=== PATIENT | female | born 1960 | race Caucasian/White ===

== ENCOUNTER 2017-04-29 18:01 | Emergency (ER) | payer OTHER ==
[2017-04-29] MEDS ORDERED: ONDANSETRON 4 MG TAB.RAPDIS PO ONE (18:43)
--- NOTE | 2017-04-29 18:50 | ER Document Report ---
ED Medical Screen (RME) - General Chief Complaint: Headache Stated Complaint: HEADACHE Time Seen by Provider: 04/29/17 18:39 Mode of Arrival: Ambulatory Information source: Patient TRAVEL OUTSIDE OF THE [place] IN LAST 30 DAYS: No - HPI Onset: Yesterday - APPROX. 2330 HRS. Quality of pain: Achy, Dull Associated Symptoms: Nausea, Vomiting - ONCE Exacerbated by: Denies Relieved by: Denies Similar symptoms previously: Yes Recently seen / treated by doctor: No Notes: 04/29/17 18:47 SAYS SHE USUALLY RESPONDS WELL TO HYDROMORPHONE AND PROMETHAZINE, NO PROBLEMS W / THESE MEDS. - Related Data Smoking: Non-smoker Frequency of alcohol use: None Drug Abuse: None Allergies/Adverse Reactions: buprenorphine [From Butrans] Allergy (Verified 04/29/17 18:06) Dyspnea butorphanol tartrate [From Stadol] Allergy (Verified 04/29/17 18:06) Seizures ketorolac tromethamine [From Toradol] Allergy (Verified 04/29/17 18:06) Seizures morphine [Morphine] Allergy (Verified 04/29/17 18:06) Swelling of Throat Penicillins Allergy (Verified 04/29/17 18:06) Generalized rash prochlorperazine edisylate [From Compazine] Allergy (Verified 04/29/17 18:06) prochlorperazine maleate [From Compazine] Allergy (Verified 04/29/17 18:06) aspirin [From Fiorinal-Codeine #3] Adverse Reaction (Verified 04/29/17 18:06) Delirium baclofen [Baclofen] Adverse Reaction (Verified 04/29/17 18:06) Hallucinations butalbital [From Fiorinal-Codeine #3] Adverse Reaction (Verified 04/29/17 18:06) Delirium caffeine [From Fiorinal-Codeine #3] Adverse Reaction (Verified 04/29/17 18:06) Delirium codeine phosphate [From Fiorinal-Codeine #3] Adverse Reaction (Verified 18:06) Delirium diphenhydramine HCl [From Benadryl] Adverse Reaction (Verified 04/29/17 18:06) metoclopramide HCl [From Reglan] Adverse Reaction (Verified 04/29/17 18:06) tramadol [Tramadol] Adverse Reaction (Verified 04/29/17 18:06) Hallucinations Past Medical History - General Information source: Patient - Social History Cigarette use (# per day): No Chew tobacco use (# tins/day): No Frequency of alcohol use: None Drug Abuse: None Lives with: Alone Family history: Reviewed & Not Pertinent - Past Medical History Cardiac Medical History: Reports: None Denies: Hx Heart Attack, Hx Hypertension Pulmonary Medical History: Reports: None Denies: Hx Asthma Neurological Medical History: Reports: Hx Migraine, Hx Seizures - DEVELOPED AFTER CRANI LAST ABT A YEAR AGO. Denies: Hx Cerebrovascular Accident Endocrine Medical History: Reports: None Renal/ Medical History: Reports: None. Denies: Hx Peritoneal Dialysis Malignancy Medical History: Reports: None GI Medical History: Reports: Hx Gastroesophageal Reflux Disease. Denies: Hx Hepatitis, Hx Hiatal Hernia, Hx Ulcer Psychiatric Medical History: Reports: None Infectious Medical History: Denies: Hx Hepatitis Past Surgical History: Reports: Hx Hysterectomy. Denies: Hx Mastectomy, Hx Open Heart Surgery, Hx Pacemaker - Immunizations Hx Diphtheria, Pertussis, Tetanus Vaccination: Yes Review of Systems - Review of Systems Constitutional: Weakness. denies: Chills, Fever EENT: No symptoms reported Cardiovascular: No symptoms reported Respiratory: No symptoms reported Gastrointestinal: See HPI Genitourinary: No symptoms reported Female Genitourinary: Post menopausal Musculoskeletal: No symptoms reported Skin: No symptoms reported Neurological/Psychological: See HPI Physical Exam - Vital signs Vitals: Temp Pulse Resp BP Pulse Ox 98.1 F 87 18 127/77 H 100 04/29/17 18:06 04/29/17 18:06 04/29/17 18:06 04/29/17 18:06 04/29/17 18:06 Interpretation: Normal. No: Tachycardic, Tachypneic, Febrile - General General appearance: Appears well, Alert In distress: None - HEENT Head: Normocephalic Eyes: Normal Conjunctiva: Normal Nasal: Normal Mouth/Lips: Normal Mucous membranes: Normal - Respiratory Respiratory status: No respiratory distress - Cardiovascular Rhythm: Regular - Extremities General upper extremity: Normal inspection General lower extremity: Normal inspection - Neurological Neuro grossly intact: Yes Cognition: Normal Orientation: AAOx4 - Psychological Associated symptoms: Normal affect, Normal mood - Skin Skin Temperature: Warm Skin Moisture: Dry Skin Color: Normal Skin Turgor: Elastic Course - Vital Signs Vital signs: Temp Pulse Resp BP Pulse Ox 98.1 F 87 18 127/77 H 100 04/29/17 18:06 04/29/17 18:06 04/29/17 18:06 04/29/17 18:06 04/29/17 18:06
[2017-04-29] MEDS ORDERED: PROMETHAZINE HCL 25 MG TABLET PO SCH (19:15)
[2017-04-29] MEDS ORDERED: HYDROMORPHONE HCL INJ/PF 2 MG/ML AMPULE IM SCH (19:45)
[2017-04-29 20:46] VITALS: BP 122/74
== END 2017-04-29 20:40 | disposition home or self-care (01) ==
LOC: ER 18:01
DX: G43.909 Migraine, unspecified, not intractable, without status migrainosus (principal); R11.2 Nausea with vomiting, unspecified
CPT/HCPCS: 99283; S0119

== ENCOUNTER 2017-04-30 16:37 | Emergency (ER) | payer OTHER ==
[2017-04-30] MEDS ORDERED: HYDROMORPHONE HCL INJ/PF 2 MG/ML AMPULE IM ONE ×2 (18:37→19:12)
[2017-04-30] MEDS ORDERED: ONDANSETRON 4 MG TAB.RAPDIS PO ONE (18:37)
[2017-04-30] MEDS ORDERED: PROMETHAZINE HCL 25 MG TABLET PO ONE (18:37)
[2017-04-30] MEDS ORDERED: METHYLPREDNISOLONE INJ 125 MG/2 ML SDV IM ONE (18:38)
--- NOTE | 2017-04-30 18:42 | ER Document Report ---
ED General Pain - General Chief Complaint: Pain All Over Stated Complaint: HEADACHE/ NECK,BACK PAIN Time Seen by Provider: 04/30/17 18:02 Notes: Patient is a 57-year-old female who returns emergency department today complaining of all over body aches that started about 2 days ago. Patient states that she was evaluated here yesterday treated for her migraine and then she requested to go home. Patient states that she woke up this morning with return of her migraine as well as her body aches. Patient states that the last time she had symptoms like this that she was diagnosed with a developing lesion of her multiple sclerosis. Patient states that she really has scheduled appointment with her neurologist and her primary care physician this week. Otherwise she admits to intermittent nausea which she states is a 30 cc with her migraine. Patient states that she took her daily medications but denies taking the Percocet prior to arrival in the emergency department. Otherwise she denies any vision changes, any localized weakness, difficulty walking. Patient states that she is able to walk with minor aches and pains. Otherwise she denies any urinary sexual incontinence, saddle anesthesia. TRAVEL OUTSIDE OF THE [place] IN LAST 30 DAYS: No - Related Data Allergies/Adverse Reactions: buprenorphine [From Butrans] Allergy (Verified 04/30/17 16:56) Dyspnea butorphanol tartrate [From Stadol] Allergy (Verified 04/30/17 16:56) Seizures ketorolac tromethamine [From Toradol] Allergy (Verified 04/30/17 16:56) Seizures morphine [Morphine] Allergy (Verified 04/30/17 16:56) Swelling of Throat Penicillins Allergy (Verified 04/30/17 16:56) Generalized rash prochlorperazine edisylate [From Compazine] Allergy (Verified 04/30/17 16:56) prochlorperazine maleate [From Compazine] Allergy (Verified 04/30/17 16:56) aspirin [From Fiorinal-Codeine #3] Adverse Reaction (Verified 04/30/17 16:56) Delirium baclofen [Baclofen] Adverse Reaction (Verified 04/30/17 16:56) Hallucinations butalbital [From Fiorinal-Codeine #3] Adverse Reaction (Verified 04/30/17 16:56) Delirium caffeine [From Fiorinal-Codeine #3] Adverse Reaction (Verified 04/30/17 16:56) Delirium codeine phosphate [From Fiorinal-Codeine #3] Adverse Reaction (Verified 16:56) Delirium diphenhydramine HCl [From Benadryl] Adverse Reaction (Verified 04/30/17 16:56) metoclopramide HCl [From Reglan] Adverse Reaction (Verified 04/30/17 16:56) tramadol [Tramadol] Adverse Reaction (Verified 04/30/17 16:56) Hallucinations Past Medical History - Social History Smoking Status: Never Smoker Chew tobacco use (# tins/day): No Frequency of alcohol use: None Drug Abuse: None Family History: Reviewed & Not Pertinent Patient has suicidal ideation: No Patient has homicidal ideation: No - Past Medical History Cardiac Medical History: Denies: Hx Heart Attack, Hx Hypertension Pulmonary Medical History: Denies: Hx Asthma Neurological Medical History: Reports: Hx Migraine, Hx Seizures - DEVELOPED AFTER CRANI LAST ABT A YEAR AGO. Denies: Hx Cerebrovascular Accident Renal/ Medical History: Denies: Hx Peritoneal Dialysis GI Medical History: Reports: Hx Gastroesophageal Reflux Disease. Denies: Hx Hepatitis, Hx Hiatal Hernia, Hx Ulcer Infectious Medical History: Denies: Hx Hepatitis Surgical Hx: Negative Past Surgical History: Reports: Hx Hysterectomy. Denies: Hx Mastectomy, Hx Open Heart Surgery, Hx Pacemaker - Immunizations Hx Diphtheria, Pertussis, Tetanus Vaccination: Yes Review of Systems - Review of Systems Constitutional: No symptoms reported Musculoskeletal: See HPI Neurological/Psychological: See HPI -: Yes All other systems reviewed and negative Physical Exam - Vital signs Vitals: Temp Pulse Resp BP Pulse Ox 98.3 F 79 24 H 125/72 97 04/30/17 16:56 04/30/17 16:56 04/30/17 16:56 04/30/17 16:56 04/30/17 16:56 - Notes Notes: PHYSICAL EXAM GENERAL: Alert, interacts well. HEAD: Normocephalic, atraumatic. EYES: Pupils equal, round, and reactive to light. Extraocular movements intact. ENT: Oral mucosa moist, tongue midline. NECK: Full range of motion. Supple. Trachea midline. LUNGS: Clear to auscultation bilaterally, no wheezes, rales, or rhonchi. No respiratory distress. HEART: Regular rate and rhythm. No murmurs, gallops, or rubs. ABDOMEN: Soft, nondistended, nontender. No guarding, rebound, or rigidity.. Bowel sounds present in all 4 quadrants. EXTREMITIES: Moves all 4 extremities spontaneously. No edema, radial and dorsalis pedis pulses 2/4 bilaterally. No cyanosis. NEUROLOGICAL: Alert and oriented x4. Normal speech. PSYCH: Normal affect, normal mood. SKIN: Warm, dry, normal turgor. No rashes or lesions noted. Course - Re-evaluation Re-evalutation: 04/30/17 21:35 Patient is a 57-year-old female who returns emergency department with likely symptoms related to MS. Patient clinically looks well and does not show symptoms of an acute MS flare. Discussion with Dr. Weston, he states that she can be initiated on outpatient steroid therapy and follow-up with her primary care on Sunday and if she is not improved they can admit her for inpatient steroid therapy. Patient is agreeable with plan. Patient stable for discharge home with strict return precautions. - Vital Signs Vital signs: Temp Pulse Resp BP Pulse Ox 97.5 F 67 20 115/75 98 04/30/17 19:08 04/30/17 19:08 04/30/17 19:08 04/30/17 19:08 04/30/17 19:08 Discharge - Discharge Clinical Impression: Multiple sclerosis Migraine headache Qualifiers: Migraine type: unspecified Status migrainosus presence: without status migrainosus Intractability: not intractable Qualified Code(s): G43.909 - Migraine, unspecified, not intractable, without status migrainosus Condition: Good Disposition: HOME, SELF-CARE Additional Instructions: Your symptoms today likely related to your MS. There is no need to admit you to the hospital at this time. Please follow-up with your primary care provider on Sunday. Please take your steroids as prescribed. Prescriptions: Prednisone 20 mg PO BID 5 Days Referrals: MARITZA KEARNS III, MD [Primary Care Provider] - 05/02/17
[2017-04-30 19:10] VITALS: BP 115/75
== END 2017-04-30 19:26 | disposition home or self-care (01) ==
LOC: ER 16:37
DX: G35 Multiple sclerosis (principal); G43.909 Migraine, unspecified, not intractable, without status migrainosus; M79.1 Myalgia; Z88.0 Allergy status to penicillin; Z88.6 Allergy status to analgesic agent; Z90.710 Acquired absence of both cervix and uterus
CPT/HCPCS: 99283; 96372; S0119; J2930; J1170

== ENCOUNTER 2017-05-29 21:19 | Emergency (ER) | payer OTHER ==
[2017-05-29 22:26] LABS: ABSOLUTE EOSINOPHILS # (AUTO) 0.3 10^3/uL (0.0-0.6); ABSOLUTE LYMPHOCYTES (AUTO) 1.7 10^3/uL (0.5-4.7); ABSOLUTE MONOCYTES (AUTO) 0.5 10^3/uL (0.1-1.4); ABSOLUTE NEUT (AUTO) 5.6 10^3/uL (1.7-8.2); BASOPHILS % (AUTO) 0.3 % (0-2); EOSINOPHILS % (AUTO) 3.9 % (0-6); HEMATOCRIT 34.8 % (36.0-47.0); HEMOGLOBIN 10.9 g/dL (12.0-15.5); HGB HCT DIFFERENCE -2.1; MEAN CORPUSCULAR HGB CONC 31.4 g/dL (32.0-36.0); MEAN CORPUSCULAR VOLUME 86 fl (80-97); MONOCYTES % (AUTO) 5.9 % (3-13); RED BLOOD COUNT 4.04 10^6/uL (3.72-5.28); RED CELL DISTRIBUTION WIDTH 17.9 % (11.5-14.0); SEGMENTED NEUTROPHILS % (AUTO) 68.9 % (42-78); WHITE BLOOD COUNT 8.2 10^3/uL (4.0-10.5)
--- NOTE | 2017-05-29 22:31 | RADIOLOGY REPORT (SQ) ---
EXAM DESCRIPTION: ACUTE ABDOMEN SERIES COMPLETED DATE/TIME: 05/29/2017 10:22 pm REASON FOR STUDY: abdominal pain COMPARISON: None. NUMBER OF VIEWS: Three views. TECHNIQUE: Frontal chest, supine abdomen and upright/decubitus abdomen radiographic images acquired. LIMITATIONS: None. FINDINGS: CHEST: Lungs clear of infiltrates. Chronic appearing changes are identified. I cannot ex clude a component of obstructive lung disease. FREE AIR: None. No abnormal gas collections. BOWEL GAS PATTERN: Nonobstructive pattern. No dilated loops or air fluid levels. CALCIFICATIONS: No suspicious calcifications. HARDWARE: None in the abdomen. SOFT TISSUES: No gross mass or suggestion of organomegaly. BONES: No acute fracture. No worrisome bone lesions. OTHER: No other significant finding. IMPRESSION: NO RADIOGRAPHIC EVIDENCE FOR ACUTE ABDOMINAL DISEASE. TECHNICAL DOCUMENTATION: JOB ID: [id number] [employer]- All Rights Reserved
[2017-05-29 22:44] LABS: ALANINE AMINOTRANSFERASE 26 U/L (9-52); ALBUMIN 3.6 g/dL (3.5-5.0); ALKALINE PHOSPHATASE 91 U/L (38-126); ANION GAP 11 (5-19); ASPARTATE AMINO TRANSFERASE 20 U/L (14-36); BILIRUBIN,DIRECT 0.4 mg/dL (0.0-0.4); BILIRUBIN,TOTAL 0.4 mg/dL (0.2-1.3); BLOOD UREA NITROGEN 22 mg/dL (7-20); CALCIUM 9.5 mg/dL (8.4-10.2); CARBON DIOXIDE 18 mmol/L (22-30); CHLORIDE 114 mmol/L (98-107); CREATININE RESULT 1.05 mg/dL (0.52-1.25); GLUCOSE 80 mg/dL (75-110); LIPASE 46.3 U/L (23-300); POTASSIUM 3.7 mmol/L (3.6-5.0); SODIUM 142.7 mmol/L (137-145); TOTAL PROTEIN 6.7 g/dL (6.3-8.2)
[2017-05-29] MEDS ORDERED: PROMETHAZINE HCL 25 MG TABLET PO ONE (22:58)
[2017-05-29] MEDS ORDERED: HYDROMORPHONE HCL INJ/PF 2 MG/ML AMPULE IM ONE (22:58)
[2017-05-29 23:04] LABS: APPEARANCE,URINE CLEAR; BILIRUBIN,URINE NEGATIVE (NEGATIVE); GLUCOSE, URINE NEGATIVE (NEGATIVE); KETONES,URINE NEGATIVE (NEGATIVE); LEUKOCYTE ESTERASE,URINE NEGATIVE (NEGATIVE); NITRITE,URINE NEGATIVE (NEGATIVE); PROTEIN,URINE NEGATIVE (NEGATIVE); URINE SPECIFIC GRAVITY 1.009; UROBILINOGEN,URINE NEGATIVE mg/dL (<2.0)
--- NOTE | 2017-05-29 23:18 | ER Document Report ---
ED GI/ - General Chief Complaint: Abdominal Pain Stated Complaint: MIGRAINE/NAUSEA Time Seen by Provider: 05/29/17 21:35 TRAVEL OUTSIDE OF THE [place] IN LAST 30 DAYS: No - HPI Patient complains to provider of: Abdominal pain - LLQ for 2-3 days with assocaited constipation Timing/Duration: Gradual Quality of pain: Achy, Sharp Severity at maximum: Moderate Pain Level: 4 Location: LLQ Vaginal bleeding (Compared to normal period): None Associated symptoms: Constipation - admits to need to go but with small firm stools, associated bloating, Hard stool. denies: Blood in stool, Nausea Exacerbated by: Denies Relieved by: Denies Similar symptoms previously: No Recently seen / treated by doctor: No - Related Data Allergies/Adverse Reactions: buprenorphine [From Butrans] Allergy (Verified 04/30/17 16:56) Dyspnea butorphanol tartrate [From Stadol] Allergy (Verified 04/30/17 16:56) Seizures ketorolac tromethamine [From Toradol] Allergy (Verified 04/30/17 16:56) Seizures morphine [Morphine] Allergy (Verified 04/30/17 16:56) Swelling of Throat Penicillins Allergy (Verified 04/30/17 16:56) Generalized rash prochlorperazine edisylate [From Compazine] Allergy (Verified 04/30/17 16:56) prochlorperazine maleate [From Compazine] Allergy (Verified 04/30/17 16:56) aspirin [From Fiorinal-Codeine #3] Adverse Reaction (Verified 04/30/17 16:56) Delirium baclofen [Baclofen] Adverse Reaction (Verified 04/30/17 16:56) Hallucinations butalbital [From Fiorinal-Codeine #3] Adverse Reaction (Verified 04/30/17 16:56) Delirium caffeine [From Fiorinal-Codeine #3] Adverse Reaction (Verified 04/30/17 16:56) Delirium codeine phosphate [From Fiorinal-Codeine #3] Adverse Reaction (Verified 16:56) Delirium diphenhydramine HCl [From Benadryl] Adverse Reaction (Verified 04/30/17 16:56) metoclopramide HCl [From Reglan] Adverse Reaction (Verified 04/30/17 16:56) tramadol [Tramadol] Adverse Reaction (Verified 04/30/17 16:56) Hallucinations Past Medical History - Social History Smoking Status: Unknown if Ever Smoked Family History: Reviewed & Not Pertinent Patient has suicidal ideation: No Patient has homicidal ideation: No - Past Medical History Cardiac Medical History: Denies: Hx Heart Attack, Hx Hypertension Pulmonary Medical History: Denies: Hx Asthma Neurological Medical History: Reports: Hx Migraine, Hx Seizures - DEVELOPED AFTER CRANI LAST ABT A YEAR AGO. Denies: Hx Cerebrovascular Accident Renal/ Medical History: Denies: Hx Peritoneal Dialysis GI Medical History: Reports: Hx Gastroesophageal Reflux Disease. Denies: Hx Hepatitis, Hx Hiatal Hernia, Hx Ulcer Infectious Medical History: Denies: Hx Hepatitis Past Surgical History: Reports: Hx Hysterectomy. Denies: Hx Mastectomy, Hx Open Heart Surgery, Hx Pacemaker - Immunizations Hx Diphtheria, Pertussis, Tetanus Vaccination: Yes Review of Systems - Review of Systems Constitutional: No symptoms reported Gastrointestinal: See HPI Neurological/Psychological: Other - admits to assocaited migraine c/w PMH Physical Exam - Vital signs Vitals: Temp Pulse Resp BP Pulse Ox 98.4 F 104 H 15 117/78 99 05/29/17 21:23 05/29/17 21:23 05/29/17 21:23 05/29/17 21:23 05/29/17 21:23 - Notes Notes: PHYSICAL EXAM GENERAL: Alert, interacts well. HEAD: Normocephalic, atraumatic. EYES: Pupils equal, round, and reactive to light. Extraocular movements intact. ENT: Oral mucosa moist, tongue midline. NECK: Full range of motion. Supple. Trachea midline. LUNGS: Clear to auscultation bilaterally, no wheezes, rales, or rhonchi. No respiratory distress. HEART: Regular rate and rhythm. No murmurs, gallops, or rubs. ABDOMEN: Soft, minimally distended, nontender. No guarding, rebound, or rigidity.. Bowel sounds present in all 4 quadrants. EXTREMITIES: Moves all 4 extremities spontaneously. No edema, radial and dorsalis pedis pulses 2/4 bilaterally. No cyanosis. NEUROLOGICAL: Alert and oriented x4. Normal speech. PSYCH: Normal affect, normal mood. SKIN: Warm, dry, normal turgor. No rashes or lesions noted. Course - Re-evaluation Re-evalutation: 05/30/17 01:12 Patient is a 57-year-old female hemodynamic stable, no distress and afebrile. No evidence of acute abdomen. No evidence of bowel obstruction. Patient tolerating p.o. without any difficulty. Migraine resolved after medication. After performing a Medical Screening Examination, I estimate there is LOW risk for ACUTE APPENDICITIS, BOWEL OBSTRUCTION, ACUTE CHOLECYSTITIS, PERFORATED DIVERTICULITIS, INCARCERATED HERNIA, PANCREATITIS, PELVIC INFLAMMATORY DISEASE, PERFORATED ULCER, ECTOPIC , or TUBO-OVARIAN ABSCESS, thus I consider the discharge disposition reasonable. Also, there is no evidence or peritonitis , sepsis, or toxicity. I have reevaluated this patient multiple times and no significant life threatening changes are noted. The patient and I have discussed the diagnosis and risks, and we agree with discharging home with close follow-up with the understanding that symptoms and presentations can change. We also discussed returning to the Emergency Department immediately if new or worsening symptoms occur. We have discussed the symptoms which are most concerning (e.g., bloody stool, fever, changing or worsening pain, vomiting) that necessitate immediate return. - Vital Signs Vital signs: Temp Pulse Resp BP Pulse Ox 97.3 F 76 16 121/80 100 05/29/17 23:30 05/29/17 23:30 05/29/17 23:30 05/29/17 23:30 05/29/17 23:30 - Laboratory Result Diagrams: 05/29/17 22:09 05/29/17 22:09 Laboratory results interpreted by me: 05/29/17 05/29/17 05/29/17 22:09 22:09 22:36 Hgb 10.9 L Hct 34.8 L MCHC 31.4 L RDW 17.9 H Chloride 114 H Carbon Dioxide 18 L BUN 22 H Est GFR (Non-Af Amer) 54 L Urine Blood SMALL H Discharge - Discharge Clinical Impression: Constipation Qualifiers: Constipation type: unspecified constipation type Qualified Code(s): K59.00 - Constipation, unspecified Condition: Good Disposition: HOME, SELF-CARE Additional Instructions: ABDOMINAL PAIN: There are many causes of abdominal pain. Pain can mean a serious problem requiring surgery (such as appendicitis). It can also be an innocent problem that goes away on its own (such as a viral infection). Often, time must pass to determine the cause of pain. The physician does not feel that hospitalization is necessary, at present. Things may change within the next 24 hours. Call the doctor or come back for re- examination if any problems occur, such as: (1) Pain that becomes more severe, steady, or becomes concentrated in one specific area. Also, pain that is more severe with movement or coughing. (2) Vomiting that persists or becomes more frequent. (3) Blood in the vomitus, urine, or bowel movements. Blood in the stool may have a tarry or black appearance. (4) Shaking chills or fever greater than 100 degrees F. (5) The abdomen becomes more distended or swollen. (6) Bowel movements cease. (7) Failure to improve as expected. NORMAL EXAM AND WORKUP: At this time, your examination and workup show no significant abnormality. No significant abnormal physical findings are noted. All laboratory, EKG, and imaging (x-ray, CT scans, ultrasound) studies that were ordered show no significant abnormality. Although your examination and all studies that were ordered showed no significant abnormal finding, there are no examinations and no studies that are 100% accurate. There is always the possibility that some abnormality could exist and not be detected with physical examination or within the limits and capabilities of laboratory and other studies. You should return or follow up as you were instructed on your visit today for further evaluation if your symptoms do not resolve. CONSTIPATION: Constipation is a common problem. It is especially likely as you get older. Constipation is a common cause of abdominal pain, but sometimes causes no symptoms at all. Causes of constipation include certain medications, dehydration, diets, inactivity, and low-fiber intake. Rarely, it can be a symptom of underlying disease. The physician has evaluated you for this. Avoid constipation by eating a diet high in fiber, fruits, and vegetables. Drink plenty of liquids. Get regular exercise. If possible, avoid constipating medicines like narcotic pain medication. Some vitamin tablets can cause constipation. Stool softeners may be needed for difficult cases. An excellent stool softener is Konsyl which is available at [employer] [employer] drug store. Just add a teaspoon to a glass of pineapple or orange juice daily or twice a day if needed. Laxatives are useful for occasional constipation. You should use them only when necessary. Too-frequent use can make your bowels dependent on them. Some over the counter laxatives available without prescription are: Milk of Magnesia, 1-2 tablespoons twice a day Dulcolax, 5 mg pill or 10 mg suppository. Citrate of Magnesia, 4-5 ounces a day for a day or two For acute constipation, Fleet's Enemas and Dulcolax suppositories are helpful. Chronic, terminal operator use of laxatives or enemas is not a good idea. Your bowel may become dependant on them. You do not need to have a bowel movement every day. Many people do fine with a bowel movement every three or four days. You should call your doctor or return for re-evaluation if you pass blood in the stool, or if you develop fever or increasing abdominal pain. FOLLOW-UP CARE: If you have been referred to a physician for follow-up care, call the physician s office for an appointment as you were instructed or within the next two days. If you experience worsening or a significant change in your symptoms, notify the physician immediately or return to the Emergency Department at any time for re-evaluation.
[2017-05-29 23:32] VITALS: BP 121/80
== END 2017-05-29 23:41 | disposition home or self-care (01) ==
LOC: ER 21:19
DX: K59.00 Constipation, unspecified (principal); R10.32 Left lower quadrant pain; K21.9 Gastro-esophageal reflux disease without esophagitis; Z88.6 Allergy status to analgesic agent; Z88.0 Allergy status to penicillin; Z90.710 Acquired absence of both cervix and uterus
CPT/HCPCS: 99284; 96372; 36415; 83690; 85025; 80053; 81001; 74022; J1170

== ENCOUNTER 2017-06-02 19:27 | Emergency (ER) | payer OTHER ==
[2017-06-02] MEDS ORDERED: PROMETHAZINE HCL 25 MG TABLET PO ONE (21:00)
[2017-06-02] MEDS ORDERED: HYDROMORPHONE HCL INJ/PF 2 MG/ML AMPULE IM ONE (21:00)
--- NOTE | 2017-06-02 21:01 | ER Document Report ---
ED General - General Chief Complaint: Headache Stated Complaint: NAUSEA Time Seen by Provider: 06/02/17 20:54 Notes: Patient is a 57-year-old female with past medical history of multiple sclerosis and chronic migraine headaches who presents with 1 of her typical migraine headaches. States she took her home medications without relief of her headache which she does describes a bitemporal, dull, constant, aching pain. States this feels identical to her prior typical migraine headaches. States the headache was gradual in onset and did get progressively worse. She has not seen a primary care doctor regarding today's episode of pain. States she typically gets Dilaudid and Phenergan for her headaches and does have a note from her neurologist instructing this regimen for her headaches. TRAVEL OUTSIDE OF THE [place] IN LAST 30 DAYS: No - Related Data Allergies/Adverse Reactions: buprenorphine [From Butrans] Allergy (Verified 06/02/17 19:32) Dyspnea butorphanol tartrate [From Stadol] Allergy (Verified 06/02/17 19:32) Seizures ketorolac tromethamine [From Toradol] Allergy (Verified 06/02/17 19:32) Seizures morphine [Morphine] Allergy (Verified 06/02/17 19:32) Swelling of Throat Penicillins Allergy (Verified 06/02/17 19:32) Generalized rash prochlorperazine edisylate [From Compazine] Allergy (Verified 06/02/17 19:32) prochlorperazine maleate [From Compazine] Allergy (Verified 06/02/17 19:32) aspirin [From Fiorinal-Codeine #3] Adverse Reaction (Verified 06/02/17 19:32) Delirium baclofen [Baclofen] Adverse Reaction (Verified 06/02/17 19:32) Hallucinations butalbital [From Fiorinal-Codeine #3] Adverse Reaction (Verified 06/02/17 19:32) Delirium caffeine [From Fiorinal-Codeine #3] Adverse Reaction (Verified 06/02/17 19:32) Delirium codeine phosphate [From Fiorinal-Codeine #3] Adverse Reaction (Verified 19:32) Delirium diphenhydramine HCl [From Benadryl] Adverse Reaction (Verified 06/02/17 19:32) metoclopramide HCl [From Reglan] Adverse Reaction (Verified 06/02/17 19:32) tramadol [Tramadol] Adverse Reaction (Verified 06/02/17 19:32) Hallucinations Past Medical History - General Information source: Patient - Social History Smoking Status: Never Smoker Frequency of alcohol use: None Drug Abuse: None Lives with: Alone Family History: Reviewed & Not Pertinent Patient has suicidal ideation: No Patient has homicidal ideation: No - Past Medical History Cardiac Medical History: Denies: Hx Heart Attack, Hx Hypertension Pulmonary Medical History: Denies: Hx Asthma Neurological Medical History: Reports: Hx Migraine, Hx Seizures - DEVELOPED AFTER CRANI LAST ABT A YEAR AGO. Denies: Hx Cerebrovascular Accident Renal/ Medical History: Denies: Hx Peritoneal Dialysis GI Medical History: Reports: Hx Gastroesophageal Reflux Disease. Denies: Hx Hepatitis, Hx Hiatal Hernia, Hx Ulcer Infectious Medical History: Denies: Hx Hepatitis Past Surgical History: Reports: Hx Hysterectomy. Denies: Hx Mastectomy, Hx Open Heart Surgery, Hx Pacemaker - Immunizations Hx Diphtheria, Pertussis, Tetanus Vaccination: Yes Review of Systems - Review of Systems Notes: Constitutional: Negative for fever. HENT: Negative for sore throat. Eyes: Negative for visual changes. Cardiovascular: Negative for chest pain. Respiratory: Negative for shortness of breath. Gastrointestinal: Negative for abdominal pain, vomiting or diarrhea. Genitourinary: Negative for dysuria. Musculoskeletal: Negative for back pain. Skin: Negative for rash. Neurological: Positive for headaches, negative for weakness or numbness. 10 point ROS negative except as marked above and in HPI. Physical Exam - Vital signs Vitals: Temp Pulse Resp BP Pulse Ox 98.4 F 84 18 120/77 100 06/02/17 19:32 06/02/17 19:32 06/02/17 19:32 06/02/17 19:32 06/02/17 19:32 Interpretation: Normal Notes: PHYSICAL EXAMINATION: GENERAL: Well-appearing, well-nourished and in no acute distress. HEAD: Atraumatic, normocephalic. EYES: Pupils equal round and reactive to light, extraocular movements intact, sclera anicteric, conjunctiva are normal. ENT: nares patent, oropharynx clear without exudates. Moist mucous membranes. NECK: Normal range of motion, supple without lymphadenopathy LUNGS: Breath sounds clear to auscultation bilaterally and equal. No wheezes rales or rhonchi. HEART: Regular rate and rhythm without murmurs ABDOMEN: Soft, nontender, normoactive bowel sounds. No guarding, no rebound. No masses appreciated. EXTREMITIES: Normal range of motion, no pitting or edema. No cyanosis. NEUROLOGICAL: Face symmetric. Tongue protrudes midline. Extraocular motions intact. Pupils are 2 mm and equally reactive. Normal speech, normal gait. 5 out of 5 strength in both the distal and proximal upper and lower extremities bilaterally. Sensation is grossly intact throughout. Finger to nose testing normal. Pronator drift normal. PSYCH: Normal mood, normal affect. SKIN: Warm, Dry, normal turgor, no rashes or lesions noted. Course - Re-evaluation Re-evalutation: 06/02/17 21:00 Presentation of a headache that appears to be most consistent with tension versus migrainous type headache. Headache was not maximal in onset, patient has no focal neurologic deficits, no nuchal rigidity, vital signs within normal limits, no papilledema, and patient is overall well in appearance. Based on clinical history and examination I do not suspect an acute subarachnoid hemorrhage, dural venous sinus thrombosis, acute meningitis, or intercranial mass. Given my low clinical suspicion for any acute life-threatening etiology, I do not feel advanced neuro imaging or laboratory testing is indicated at this time. Patient does come with a letter from her neurologist instructing that hydromorphone may be used for her migraine headaches. Patient has a very long list of allergies that include most medications that would be used for treatment of an acute migraine. Will treat and reassess. 06/02/17 22:19 Patient has had complete resolution of her headache and states she would like to go home. At this time will discharge with return precautions and follow-up recommendations. Verbal discharge instructions given a the bedside and opportunity for questions given. Medication warnings reviewed. Patient is in agreement with this plan and has verbalized understanding of return precautions and the need for primary care follow-up in the next 24-72 hours. - Vital Signs Vital signs: Temp Pulse Resp BP Pulse Ox 98.1 F 85 21 H 118/87 H 94 06/02/17 22:42 06/02/17 22:42 06/02/17 19:33 06/02/17 22:42 06/02/17 22:42 Discharge - Discharge Clinical Impression: Headache Qualifiers: Headache type: unspecified Headache chronicity pattern: acute headache Intractability: not intractable Qualified Code(s): R51 - Headache Condition: Good Disposition: HOME, SELF-CARE Additional Instructions: You have been seen in the Emergency Department (ED) for a headache. As we have discussed, please follow up with your primary care doctor as soon as possible regarding today's ED visit and your headache symptoms. Call your doctor or return to the ED if you have a worsening headache, sudden and severe headache, confusion, slurred speech, facial droop, weakness or numbness in any arm or leg, extreme fatigue, or other symptoms that concern you. Referrals: SABINE KEARNS MD [Primary Care Provider] - Follow up as needed
[2017-06-02 22:44] VITALS: BP 118/87
== END 2017-06-02 22:45 | disposition home or self-care (01) ==
LOC: ER 19:27
DX: R51 Headache (principal)
CPT/HCPCS: 99283; 96372; J1170

== ENCOUNTER 2018-02-06 02:00 | Emergency (ER) | payer OTHER ==
[2018-02-06] MEDS ORDERED: HYDROMORPHONE HCL INJ/PF 2 MG/ML AMPULE IV ONE (03:13)
--- NOTE | 2018-02-06 03:13 | ER Document Report ---
ED Dizziness/Weakness - General Chief Complaint: Headache, dizziness, vomited Stated Complaint: HEADACHE Time Seen by Provider: 02/06/18 02:46 Notes: Patient is a 57-year-old female who presents emergency department the chief complaint of weakness, dizziness, headache that started today. Patient states that she was seen at [facility] on 01/27 for screening blood work and told she was anemic with a hemoglobin of 5.9. She was then seen in the ER given 2 units of packed red cells. She states no focal source of bleeding was identified. Denies any melena, bright red blood per rectum, hematuria. She is supposed to follow up with [facility], gastroenterology. She states that tonight however she also developed an associated headache. She describes it as generalized from her neck around her head in a bandlike distribution. Patient states that she not take any of her home migraine medications. Denies any associated aura with this headache. They were at [facility] prior to coming to [place] but left since they wouldnt treat her headache without bloodwork Primary care provider is Dr. Lynn at [facility], neurologist is Dr. Shazia ADAMS, follows with prekindergarten teacher Dr. 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 TRAVEL OUTSIDE OF THE [place] IN LAST 30 DAYS: No - Related Data Allergies/Adverse Reactions: buprenorphine [From Butrans] Allergy (Verified 02/06/18 05:09) Dyspnea butorphanol tartrate [From Stadol] Allergy (Verified 02/06/18 05:09) Seizures ketorolac tromethamine [From Toradol] Allergy (Verified 02/06/18 05:09) Seizures morphine [Morphine] Allergy (Verified 02/06/18 05:09) Swelling of Throat Penicillins Allergy (Verified 02/06/18 05:09) Generalized rash prochlorperazine edisylate [From Compazine] Allergy (Verified 02/06/18 05:09) prochlorperazine maleate [From Compazine] Allergy (Verified 02/06/18 05:09) aspirin [From Fiorinal-Codeine #3] Adverse Reaction (Verified 02/06/18 05:09) Delirium baclofen [Baclofen] Adverse Reaction (Verified 02/06/18 05:09) Hallucinations butalbital [From Fiorinal-Codeine #3] Adverse Reaction (Verified 02/06/18 05:09) Delirium caffeine [From Fiorinal-Codeine #3] Adverse Reaction (Verified 02/06/18 05:09) Delirium codeine phosphate [From Fiorinal-Codeine #3] Adverse Reaction (Verified 05:09) Delirium diphenhydramine HCl [From Benadryl] Adverse Reaction (Verified 02/06/18 05:09) metoclopramide HCl [From Reglan] Adverse Reaction (Verified 02/06/18 05:09) tramadol [Tramadol] Adverse Reaction (Verified 02/06/18 05:09) Hallucinations Past Medical History - Social History Smoking Status: Unknown if Ever Smoked Family History: Reviewed & Not Pertinent Patient has suicidal ideation: No Patient has homicidal ideation: No - Past Medical History Cardiac Medical History: Denies: Hx Heart Attack, Hx Hypertension Pulmonary Medical History: Denies: Hx Asthma Neurological Medical History: Reports: Hx Migraine, Hx Seizures - DEVELOPED AFTER CRANI LAST ABT A YEAR AGO. Denies: Hx Cerebrovascular Accident Renal/ Medical History: Denies: Hx Peritoneal Dialysis GI Medical History: Reports: Hx Gastroesophageal Reflux Disease. Denies: Hx Hepatitis, Hx Hiatal Hernia, Hx Ulcer Infectious Medical History: Denies: Hx Hepatitis Past Surgical History: Reports: Hx Hysterectomy. Denies: Hx Mastectomy, Hx Open Heart Surgery, Hx Pacemaker - Immunizations Hx Diphtheria, Pertussis, Tetanus Vaccination: Yes Review of Systems - Review of Systems Notes: REVIEW OF SYSTEMS: CONSTITUTIONAL : Denies fever, chills, or sweats. Denies recent illness. EENT: Denies eye, ear, throat, or mouth pain or symptoms. Denies nasal or sinus congestion or discharge. Denies throat, tongue, or mouth swelling or difficulty swallowing. CARDIOVASCULAR: Denies chest pain. Denies palpitations or racing or irregular heart beat. Denies ankle edema. RESPIRATORY: Denies cough, cold, or chest congestion. Denies shortness of breath, difficulty breathing, or wheezing. GASTROINTESTINAL: Denies abdominal pain or distention. Denies nausea, vomiting , or diarrhea. Denies blood in vomitus, stools, or per rectum. Denies black, tarry stools. Denies constipation. GENITOURINARY: Denies difficulty urinating, painful urination, burning, frequency, blood in urine, or discharge. FEMALE GENITOURINARY: Denies vaginal bleeding, heavy or abnormal periods, irregular periods. Denies vaginal discharge or odor. MUSCULOSKELETAL: Denies any muscle spasms, difficulty walking, extremity pain SKIN: Denies rash, lesions or sores. HEMATOLOGIC : Denies easy bruising or bleeding. LYMPHATIC: Denies swollen, enlarged glands. NEUROLOGICAL: See hpi. Denies confusion or altered mental status. Denies passing out or loss of consciousness. Denies weakness or paralysis or loss of use of either side. Denies problems with gait or speech. Denies sensory loss, numbness, or tingling. Denies seizures. PSYCHIATRIC: Denies anxiety or stress. Denies depression, suicidal ideation, or homicidal ideation. ALL OTHER SYSTEMS REVIEWED AND NEGATIVE. Dictation was performed using [employer] voice recognition software Physical Exam - Vital signs Vitals: Temp Pulse Resp BP Pulse Ox 97 F L 67 16 130/66 H 98 02/06/18 02:06 02/06/18 02:06 02/06/18 02:06 02/06/18 02:06 02/06/18 02:06 - Notes Notes: PHYSICAL EXAM GENERAL: Alert, interacts well. HEAD: Normocephalic, atraumatic. EYES: Pupils equal, round, and reactive to light. Extraocular movements intact. ENT: Oral mucosa moist, tongue midline. NECK: Full range of motion. Supple. Trachea midline. LUNGS: Clear to auscultation bilaterally, no wheezes, rales, or rhonchi. No respiratory distress. HEART: Regular rate and rhythm. No murmurs, gallops, or rubs. ABDOMEN: Soft, nondistended, nontender. No guarding, rebound, or rigidity.. Bowel sounds present in all 4 quadrants. EXTREMITIES: Moves all 4 extremities spontaneously. No edema, radial and dorsalis pedis pulses 2/4 bilaterally. No cyanosis. NEUROLOGICAL: Alert and oriented x4. Face symmetric. Tongue protrudes midline. Extraocular motions intact. Pupils are 2 mm and equally reactive. Normal speech, normal gait. 5 out of 5 strength in both the distal and proximal upper and lower extremities bilaterally. Sensation is grossly intact throughout. Finger to nose testing normal. Pronator drift normal. PSYCH: Normal affect, normal mood. SKIN: Warm, dry, normal turgor. No rashes or lesions noted. Course - Re-evaluation Re-evalutation: 02/06/18 06:19 Patient is a 57-year-old female who is hemodynamically stable, no acute distress and afebrile. CBC stable at 10.3. Patient not anemic at this time requiring blood transfusion. Chemistry stable per her baseline. Patient does not have any focal neurologic deficits, nuchal rigidity, vital signs are within normal limits no papilledema. Her headache is likely consistent as a tension type distribution associated with her cervical spondylosis. Patient is otherwise no acute distress and hemodynamically stable. Low index for suspicion of acute subarachnoid hemorrhage, meningitis or mass. Low suspicion for acute life-threatening etiology with intact neuro exam therefore no additional imaging or laboratory testing is indicated. Will discharge patient home with strict follow-up with PCP - Vital Signs Vital signs: Temp Pulse Resp BP Pulse Ox 97 F L 67 15 103/61 99 02/06/18 02:06 02/06/18 02:06 02/06/18 06:01 02/06/18 06:01 02/06/18 06:01 - Laboratory Result Diagrams: 02/06/18 04:20 02/06/18 04:20 Laboratory results interpreted by me: 02/06/18 02/06/18 04:20 04:20 Hgb 10.3 L Hct 34.2 L MCV 74 L MCH 22.5 L MCHC 30.2 L RDW 25.3 H Sodium 150.4 H Chloride 115 H Carbon Dioxide 20 L BUN 24 H Est GFR ( Amer) 53 L Est GFR (Non-Af Amer) 44 L Discharge - Discharge Clinical Impression: Headache Qualifiers: Headache type: tension-type Headache chronicity pattern: episodic headache Intractability: intractable Qualified Code(s): G44.211 - Episodic tension-type headache, intractable Condition: Good Disposition: HOME, SELF-CARE Additional Instructions: HEADACHE: The physician does not feel that the headache you are experiencing has a serious underlying cause. Most headaches are due to emotional stress, with resultant muscle tension (tension headache). Occasionally, headaches are secondary to changes in the blood vessels of the scalp (vascular headache and migraine headache). Sometimes, a headache is the first symptom of another developing illness, such as a viral infection. You have no evidence of stroke, bleeding, meningitis, or other serious cause of your headache. The treatment of headaches varies with the severity and cause of the pain. Not all headaches need pain shots. In fact, there is evidence that using narcotics for headaches may make them worse in the long run. The physician will determine the therapy that's in your best interest. If you develop a fever, if the headache is different from any you've previously experienced, or if the headache progressively worsens, then call your physician at once or go to the emergency room. PAIN MEDICATION INJECTION: You have received an injection of a pain medication. You should experience significant pain relief within 45 minutes. This drug is a narcotic - - it will impair your judgement, slow your reaction time and make you sleepy ( as well as relieve your pain). Narcotics also can cause nausea. You should not drive, work with machinery, or perform any task requiring mental alertness until all effects of the medication are gone -- six to eight hours. Do not take any alcohol, or sedatives, and do not take any other medication without checking with your physician. FOLLOW-UP CARE: If you have been referred to a physician for follow-up care, call the physician s office for an appointment as you were instructed or within the next two days. If you experience worsening or a significant change in your symptoms, notify the physician immediately or return to the Emergency Department at any time for re-evaluation.
[2018-02-06 04:10] LABS: APPEARANCE,URINE CLEAR; BILIRUBIN,URINE NEGATIVE (NEGATIVE); COLOR,URINE STRAW; GLUCOSE, URINE NEGATIVE (NEGATIVE); KETONES,URINE NEGATIVE (NEGATIVE); LEUKOCYTE ESTERASE,URINE NEGATIVE (NEGATIVE); NITRITE,URINE NEGATIVE (NEGATIVE); PROTEIN,URINE NEGATIVE (NEGATIVE); URINE SPECIFIC GRAVITY 1.013; UROBILINOGEN,URINE NEGATIVE mg/dL (<2.0)
[2018-02-06] MEDS ORDERED: HYDROMORPHONE HCL INJ/PF 2 MG/ML AMPULE IM ONE ×2 (04:13→05:24)
[2018-02-06] MEDS ORDERED: PROMETHAZINE HCL INJ 25 MG/1 ML VIAL IM ONE (04:13)
[2018-02-06 04:49] LABS: ABSOLUTE BASOPHILS # (AUTO) 0.1 10^3/uL (0.0-0.2); ABSOLUTE EOSINOPHILS # (AUTO) 0.2 10^3/uL (0.0-0.6); ABSOLUTE LYMPHOCYTES (AUTO) 1.5 10^3/uL (0.5-4.7); ABSOLUTE MONOCYTES (AUTO) 0.4 10^3/uL (0.1-1.4); ABSOLUTE NEUT (AUTO) 2.8 10^3/uL (1.7-8.2); BASOPHILS % (AUTO) 1.5 % (0-2); EOSINOPHILS % (AUTO) 3.6 % (0-6); HEMATOCRIT 34.2 % (36.0-47.0); HEMOGLOBIN 10.3 g/dL (12.0-15.5); LYMPHOCYTES % (AUTO) 29.9 % (13-45); MEAN CORPUSCULAR HEMOGLOBIN 22.5 pg (27.0-33.4); MEAN CORPUSCULAR HGB CONC 30.2 g/dL (32.0-36.0); MEAN CORPUSCULAR VOLUME 74 fl (80-97); MONOCYTES % (AUTO) 8.1 % (3-13); PLATELET COUNT 294 10^3/uL (150-450); RED CELL DISTRIBUTION WIDTH 25.3 % (11.5-14.0); SEGMENTED NEUTROPHILS % (AUTO) 56.9 % (42-78); TOTAL CELLS COUNTED % (AUTO) 100 %; WHITE BLOOD COUNT 4.9 10^3/uL (4.0-10.5)
[2018-02-06 05:00] LABS: ALANINE AMINOTRANSFERASE 23 U/L (9-52); ALBUMIN 3.9 g/dL (3.5-5.0); ALKALINE PHOSPHATASE 57 U/L (38-126); ANION GAP 15 (5-19); ASPARTATE AMINO TRANSFERASE 21 U/L (14-36); BILIRUBIN,DIRECT 0.2 mg/dL (0.0-0.4); BILIRUBIN,TOTAL 0.2 mg/dL (0.2-1.3); BLOOD UREA NITROGEN 24 mg/dL (7-20); CALCIUM 9.4 mg/dL (8.4-10.2); CARBON DIOXIDE 20 mmol/L (22-30); CHLORIDE 115 mmol/L (98-107); GLUCOSE 86 mg/dL (75-110); POTASSIUM 3.9 mmol/L (3.6-5.0); SODIUM 150.4 mmol/L (137-145); TOTAL PROTEIN 6.8 g/dL (6.3-8.2)
[2018-02-06 05:07] LABS: ANISOCYTOSIS 3+; BURR CELLS SLIGHT; HYPOCHROMASIA 2+; OVALOCYTES 1+; POIKILOCYTOSIS 1+; POLYCHROMASIA SLIGHT
[2018-02-06 05:08] LABS: PLATELET COMMENT ADEQUATE
[2018-02-06 06:03] VITALS: BP 103/61
--- NOTE | 2018-02-06 07:27 | EKG REPORT ---
SEVERITY:- NORMAL ECG - SINUS RHYTHM : Confirmed by: Aron Vazquez MD 06-Feb-2018 07:26:07
== END 2018-02-06 06:30 | disposition home or self-care (01) ==
LOC: ER 02:00
DX: G44.211 Episodic tension-type headache, intractable (principal); M47.9 Spondylosis, unspecified; R53.1 Weakness; R42 Dizziness and giddiness; G35 Multiple sclerosis; Z79.899 Other long term (current) drug therapy; Z88.8 Allergy status to other drugs, medicaments and biological substances; Z88.5 Allergy status to narcotic agent; Z88.0 Allergy status to penicillin; Z88.6 Allergy status to analgesic agent
CPT/HCPCS: 93005; 99284; 96372; 36415; 85025; 80053; 81001; 93010; J1170; J2550

== ENCOUNTER 2018-03-01 17:50 | Emergency (ER) | payer OTHER ==
[2018-03-01] MEDS ORDERED: PROMETHAZINE HCL INJ 25 MG/1 ML VIAL IV ONE (18:59)
[2018-03-01] MEDS ORDERED: HYDROMORPHONE HCL INJ/PF 2 MG/ML AMPULE IV ONE (19:00)
--- NOTE | 2018-03-01 19:02 | ER Document Report ---
ED Medical Screen (RME) - General Chief Complaint: Nausea/Vomiting Stated Complaint: HEADACHE Time Seen by Provider: 03/01/18 18:56 Notes: RAPID MEDICAL EVALUATION DISCLOSURE I have seen this patient as part of a Rapid Medical Evaluation and, if applicable, placed any initially appropriate orders. The patient will be seen and fully evaluated, including a full history and physical exam, by a provider ( in Main ED or Fast Track) when a room becomes available. 57-year-old female here with complaints of nausea vomiting ongoing for the past 3 days and this morning onset of migraine headache. She has not had any abdominal pain dysuria fevers chills. When asked why she believes she has nausea and vomiting, she states "I have a lot of medical problems". Migraine feels like her usual previous headaches. TRAVEL OUTSIDE OF THE [place] IN LAST 30 DAYS: No - Related Data Allergies/Adverse Reactions: buprenorphine [From Butrans] Allergy (Verified 03/01/18 17:55) Dyspnea butorphanol tartrate [From Stadol] Allergy (Verified 03/01/18 17:55) Seizures ketorolac tromethamine [From Toradol] Allergy (Verified 03/01/18 17:55) Seizures morphine [Morphine] Allergy (Verified 03/01/18 17:55) Swelling of Throat Penicillins Allergy (Verified 03/01/18 17:55) Generalized rash prochlorperazine edisylate [From Compazine] Allergy (Verified 03/01/18 17:55) prochlorperazine maleate [From Compazine] Allergy (Verified 03/01/18 17:55) aspirin [From Fiorinal-Codeine #3] Adverse Reaction (Verified 03/01/18 17:55) Delirium baclofen [Baclofen] Adverse Reaction (Verified 03/01/18 17:55) Hallucinations butalbital [From Fiorinal-Codeine #3] Adverse Reaction (Verified 03/01/18 17:55) Delirium caffeine [From Fiorinal-Codeine #3] Adverse Reaction (Verified 03/01/18 17:55) Delirium codeine phosphate [From Fiorinal-Codeine #3] Adverse Reaction (Verified 17:55) Delirium diphenhydramine HCl [From Benadryl] Adverse Reaction (Verified 03/01/18 17:55) metoclopramide HCl [From Reglan] Adverse Reaction (Verified 03/01/18 17:55) tramadol [Tramadol] Adverse Reaction (Verified 03/01/18 17:55) Hallucinations Past Medical History - Social History Frequency of alcohol use: None Drug Abuse: None Family history: Reviewed & Not Pertinent - Past Medical History Cardiac Medical History: Denies: Hx Heart Attack, Hx Hypertension Pulmonary Medical History: Denies: Hx Asthma Neurological Medical History: Reports: Hx Migraine, Hx Seizures - DEVELOPED AFTER CRANI LAST ABT A YEAR AGO. Denies: Hx Cerebrovascular Accident Renal/ Medical History: Denies: Hx Peritoneal Dialysis GI Medical History: Reports: Hx Gastroesophageal Reflux Disease. Denies: Hx Hepatitis, Hx Hiatal Hernia, Hx Ulcer Infectious Medical History: Denies: Hx Hepatitis Past Surgical History: Reports: Hx Hysterectomy, Hx Neurologic Surgery. Denies : Hx Mastectomy, Hx Open Heart Surgery, Hx Pacemaker - Immunizations Hx Diphtheria, Pertussis, Tetanus Vaccination: Yes Physical Exam - Vital signs Vitals: Temp Pulse Resp BP Pulse Ox 99.4 F 98 20 154/96 H 97 03/01/18 18:04 03/01/18 18:04 03/01/18 18:04 03/01/18 18:04 03/01/18 18:04 Course - Vital Signs Vital signs: Temp Pulse Resp BP Pulse Ox 99.4 F 98 20 154/96 H 97 03/01/18 18:04 03/01/18 18:04 03/01/18 18:04 03/01/18 18:04 03/01/18 18:04
[2018-03-01] MEDS ORDERED: HYDROMORPHONE HCL INJ/PF 2 MG/ML AMPULE IM ONE ×2 (19:28→19:35)
[2018-03-01] MEDS ORDERED: PROMETHAZINE HCL INJ 25 MG/1 ML VIAL IM ONE ×2 (19:28→19:35)
--- NOTE | 2018-03-01 19:43 | ER Document Report ---
ED General - General Chief Complaint: Nausea/Vomiting Stated Complaint: HEADACHE Time Seen by Provider: 03/01/18 18:56 TRAVEL OUTSIDE OF THE [place] IN LAST 30 DAYS: No - HPI Notes: Patient is a 57-year-old female with a history of multiple sclerosis, chronic cervicalgia, and chronic recurrent migraines as well as previous left-sided brain surgery who presents to the ED with spouse complaining of a headache over the last couple days. Patient states that this is the same as previous headaches without any acute changes. She is under the care of a neurologist as well as a neurosurgeon. Patient does present with a letter (from neuro) for medications that she utilizes during acute headaches with Dilaudid and Phenergan. Patient states that the headache causes her to have some nausea and vomiting. She only vomited a few times today. She is still able to eat, but does have a decreased p.o. intake. She is urinating normally and having normal bowel movements. Patient states that she does not have any other pain anywhere else aside from her neck and her head, which is normal for her during headaches. Denies any fever, head injury, changes in vision/speech/mentation/ hearing, URI, sore throat, chest pain, palpitations, syncope, cough, shortness of breath, wheeze, dyspnea, abdominal pain, nausea/vomiting/diarrhea, urinary retention, dysuria, hematuria, loss of control of bowel or bladder, numbness/ tingling, saddle anesthesia, muscle paralysis/weakness, or rash. - Related Data Allergies/Adverse Reactions: buprenorphine [From Butrans] Allergy (Verified 03/01/18 17:55) Dyspnea butorphanol tartrate [From Stadol] Allergy (Verified 03/01/18 17:55) Seizures ketorolac tromethamine [From Toradol] Allergy (Verified 03/01/18 17:55) Seizures morphine [Morphine] Allergy (Verified 03/01/18 17:55) Swelling of Throat Penicillins Allergy (Verified 03/01/18 17:55) Generalized rash prochlorperazine edisylate [From Compazine] Allergy (Verified 03/01/18 17:55) prochlorperazine maleate [From Compazine] Allergy (Verified 03/01/18 17:55) aspirin [From Fiorinal-Codeine #3] Adverse Reaction (Verified 03/01/18 17:55) Delirium baclofen [Baclofen] Adverse Reaction (Verified 03/01/18 17:55) Hallucinations butalbital [From Fiorinal-Codeine #3] Adverse Reaction (Verified 03/01/18 17:55) Delirium caffeine [From Fiorinal-Codeine #3] Adverse Reaction (Verified 03/01/18 17:55) Delirium codeine phosphate [From Fiorinal-Codeine #3] Adverse Reaction (Verified 17:55) Delirium diphenhydramine HCl [From Benadryl] Adverse Reaction (Verified 03/01/18 17:55) metoclopramide HCl [From Reglan] Adverse Reaction (Verified 03/01/18 17:55) tramadol [Tramadol] Adverse Reaction (Verified 03/01/18 17:55) Hallucinations Past Medical History - Social History Smoking Status: Current Every Day Smoker Frequency of alcohol use: None Drug Abuse: None Family History: Reviewed & Not Pertinent Patient has suicidal ideation: No Patient has homicidal ideation: No - Past Medical History Cardiac Medical History: Denies: Hx Heart Attack, Hx Hypertension Pulmonary Medical History: Denies: Hx Asthma Neurological Medical History: Reports: Hx Migraine, Hx Seizures - DEVELOPED AFTER CRANI LAST ABT A YEAR AGO. Denies: Hx Cerebrovascular Accident Renal/ Medical History: Denies: Hx Peritoneal Dialysis GI Medical History: Reports: Hx Gastroesophageal Reflux Disease. Denies: Hx Hepatitis, Hx Hiatal Hernia, Hx Ulcer Infectious Medical History: Denies: Hx Hepatitis Past Surgical History: Reports: Hx Hysterectomy, Hx Neurologic Surgery. Denies : Hx Mastectomy, Hx Open Heart Surgery, Hx Pacemaker - Immunizations Hx Diphtheria, Pertussis, Tetanus Vaccination: Yes Review of Systems - Review of Systems -: Yes All other systems reviewed and negative Physical Exam - Vital signs Vitals: Temp Pulse Resp BP Pulse Ox 99.4 F 98 20 154/96 H 97 03/01/18 18:04 03/01/18 18:04 03/01/18 18:04 03/01/18 18:04 03/01/18 18:04 - Notes Notes: PHYSICAL EXAMINATION: GENERAL: Well-appearing, well-nourished and in no acute distress. A&Ox4. Answers questions appropriately. HEAD: Atraumatic, normocephalic. Non-tender. EYES: Pupils equal round and reactive to light, extraocular movements intact, sclera anicteric, conjunctiva are normal. no nystagmus. no obvious papilledema. Left pupil is slightly more sluggish than the right ( states that she does have known differences in her pupils s/p brain surgery). ENT: EAC clear b/l. TM's intact b/l without erythema, fluid, or perforation. Nares patent and without discharge. oropharynx clear without exudates. No tonsilar hypertrophy or erythema. Moist mucous membranes. NECK: Normal range of motion, supple without lymphadenopathy. No rigidity. No midline tenderness. Spurling negative. + mild paraspinal tenderness. LUNGS: Breath sounds clear to auscultation bilaterally and equal. No wheezes rales or rhonchi. HEART: Regular rate and rhythm without murmurs, rubs, gallops. ABDOMEN: Soft, nontender, nondistended abdomen. No guarding, no rebound. No masses appreciated. Normal bowel sounds present. No CVA tenderness bilaterally. Musculoskeletal: Ext b/l: FROM to passive/active. Strength 5+/5. No deficits noted. Back: FROM to passive/active. Strength 5+/5. No vertebral point tenderness, stepoffs, or deformities. Extremities: No cyanosis, clubbing, or edema b/l. Peripheral pulses 2+. Capillary refill less than 2 seconds. NEUROLOGICAL: NIH 0. GCS 15. Cranial nerves grossly intact. Normal speech, normal gait. Normal sensory, motor exams. Reflexes 2+ b/l. MARY's negative. Pronator drift negative. Heel/wan, finger/nose wnl. PSYCH: Normal mood, normal affect. SKIN: Warm, Dry, normal turgor, no rashes or lesions noted. Course - Re-evaluation Re-evalutation: 03/01/18 21:30 Patient is an afebrile, well-hydrated, 57-year-old female who presents to the ED with a headache which I suspect is one of her typical migraine versus tension headaches based on H&P today. Her nausea and vomiting has since resolved with improvement in her pain. Her abdomen is soft and nontender. Vitals are acceptable without any significant tachycardia, tachypnea, or hypoxia. PE is otherwise unremarkable for any focal neurological deficits. NIH 0, GCS 15, cranial nerves grossly intact. Patient is tolerating p.o. at this time without any difficulties. CBC and CMP grossly unremarkable and acceptable at this time. Patient was given Phenergan and Dilaudid which resolved her headache. Patient currently asymptomatic. She is nontoxic- appearing. Low suspicion for any acute glaucoma, temporal arteritis, meningitis , intracranial hemorrhage, ischemic stroke, or fracture at this time. Patient is aware that her condition can change from initial presentation and that she needs to monitor symptoms closely for any acute changes. Conservative measures otherwise for symptoms. Recheck with your PCM in 3-5 days. Keep appointments with your neurologist and neurosurgeon. Return to the ED with any worsening/ concerning symptoms otherwise as reviewed discharge. Patient and spouse are in agreement. - Vital Signs Vital signs: Temp Pulse Resp BP Pulse Ox 99.4 F 98 20 154/96 H 97 03/01/18 18:04 03/01/18 18:04 03/01/18 18:04 03/01/18 18:04 03/01/18 18:04 - Laboratory Result Diagrams: 03/01/18 20:20 03/01/18 20:20 Laboratory results interpreted by me: 03/01/18 03/01/18 20:20 20:20 Hgb 11.7 L MCV 78 L D MCH 24.4 L MCHC 31.3 L RDW 26.7 H Sodium 147.4 H Chloride 111 H BUN 23 H Calcium 11.1 H Discharge - Discharge Clinical Impression: Headache Qualifiers: Headache type: unspecified Headache chronicity pattern: acute headache Intractability: not intractable Qualified Code(s): R51 - Headache Condition: Stable Disposition: HOME, SELF-CARE Instructions: Headache ([facility]) Additional Instructions: Rest, Ice Tylenol/ibuprofen as needed Light stretches daily Strength exercises as able Moist heat and massage may help F/u with your PCP/Neurologiest in 3-5 days for a recheck Consider consult(s) with Orthopedics/physical therapy for ongoing/worsening symptoms Return to the ED with any worsening symptoms and/or development of fever, headache, changes in behavior/mentation/vision/speech, chest pain, palpitations , syncope, shortness of breath, trouble breathing, abdominal pain, n/v/d, blood in stool/urine, loss of control of bowel/bladder, urinary retention, muscle weakness/paralysis, saddle anesthesia, numbness/tingling, or other worsening symptoms that are concerning to you. Forms: Smoking Cessation Education, Elevated Blood Pressure Referrals: NEUROLOGY [Provider Group] - Follow up as needed
[2018-03-01 20:34] LABS: ABSOLUTE LYMPHOCYTES (AUTO) 0.9 10^3/uL (0.5-4.7); ABSOLUTE MONOCYTES (AUTO) 0.7 10^3/uL (0.1-1.4); ABSOLUTE NEUT (AUTO) 5.5 10^3/uL (1.7-8.2); BASOPHILS % (AUTO) 0.4 % (0-2); HEMATOCRIT 37.3 % (36.0-47.0); HEMOGLOBIN 11.7 g/dL (12.0-15.5); MEAN CORPUSCULAR HEMOGLOBIN 24.4 pg (27.0-33.4); MEAN CORPUSCULAR HGB CONC 31.3 g/dL (32.0-36.0); MONOCYTES % (AUTO) 10.4 % (3-13); PLATELET COUNT 294 10^3/uL (150-450); RED BLOOD COUNT 4.79 10^6/uL (3.72-5.28); RED CELL DISTRIBUTION WIDTH 26.7 % (11.5-14.0); SEGMENTED NEUTROPHILS % (AUTO) 76.2 % (42-78); TOTAL CELLS COUNTED % (AUTO) 100 %; WHITE BLOOD COUNT 7.2 10^3/uL (4.0-10.5)
[2018-03-01 20:45] LABS: ALANINE AMINOTRANSFERASE 28 U/L (9-52); ALBUMIN 4.6 g/dL (3.5-5.0); ALKALINE PHOSPHATASE 56 U/L (38-126); ANION GAP 13 (5-19); ASPARTATE AMINO TRANSFERASE 19 U/L (14-36); BILIRUBIN,DIRECT 0.3 mg/dL (0.0-0.4); BILIRUBIN,TOTAL 0.3 mg/dL (0.2-1.3); BLOOD UREA NITROGEN 23 mg/dL (7-20); CALCIUM 11.1 mg/dL (8.4-10.2); CARBON DIOXIDE 23 mmol/L (22-30); CHLORIDE 111 mmol/L (98-107); GLUCOSE 104 mg/dL (75-110); LIPASE 53.5 U/L (23-300); POTASSIUM 3.7 mmol/L (3.6-5.0); SODIUM 147.4 mmol/L (137-145); TOTAL PROTEIN 7.4 g/dL (6.3-8.2)
[2018-03-01 21:01] LABS: MEAN CORPUSCULAR VOLUME 78 fl (80-97)
[2018-03-01 21:20] LABS: ANISOCYTOSIS 3+; TOXIC GRANULATION 1+
[2018-03-01 21:36] LABS: PLATELET COMMENT ADEQUATE
[2018-03-01 21:51] VITALS: BP 111/82
== END 2018-03-01 21:53 | disposition home or self-care (01) ==
LOC: ER 17:50
DX: R51 Headache (principal); R11.2 Nausea with vomiting, unspecified; Z88.0 Allergy status to penicillin; Z88.6 Allergy status to analgesic agent; Z90.710 Acquired absence of both cervix and uterus
CPT/HCPCS: 99284; 96372; 36415; 83690; 85025; 80053; J1170; J2550

== ENCOUNTER 2018-03-22 18:53 | Emergency (ER) | payer OTHER ==
[2018-03-22] MEDS ORDERED: HYDROMORPHONE HCL INJ/PF 2 MG/ML AMPULE IM ONE (20:34)
[2018-03-22] MEDS ORDERED: PROMETHAZINE HCL INJ 25 MG/1 ML VIAL IM ONE (20:34)
--- NOTE | 2018-03-22 20:37 | ER Document Report ---
ED Medical Screen (RME) - General Chief Complaint: Headache Stated Complaint: HEADACHE/NAUSEA/VOMITING Time Seen by Provider: 03/22/18 20:33 Notes: 57-year-old female patient history of migraines, MS, spinal stenosis. Followed by chronic pain management. Followed by neurology. Followed by primary care medicine. Followed by gastroenterology. States that she has not been able to see her primary care doctor because her [place] and she has not been assigned to a new primary care doctor. Out of her medications. Has some migraine. States that the only thing that works is 2 mg of Dilaudid and 25 mg of Phenergan intramuscularly. Does not want an IV. Denies any fevers, chills, sweats. Positive nausea and vomiting. Has not been able to take her regular pain medications today. States that she will need refills on her pain medication as well. I have greeted and performed a rapid initial assessment of this patient. A comprehensive ED assessment and evaluation of the patient, analysis of test results and completion of the medical decision making process will be conducted by additional ED providers. TRAVEL OUTSIDE OF THE [place] IN LAST 30 DAYS: No - Related Data Allergies/Adverse Reactions: buprenorphine [From Butrans] Allergy (Verified 03/22/18 18:55) Dyspnea butorphanol tartrate [From Stadol] Allergy (Verified 03/22/18 18:55) Seizures ketorolac tromethamine [From Toradol] Allergy (Verified 03/22/18 18:55) Seizures morphine [Morphine] Allergy (Verified 03/22/18 18:55) Swelling of Throat Penicillins Allergy (Verified 03/22/18 18:55) Generalized rash prochlorperazine edisylate [From Compazine] Allergy (Verified 03/22/18 18:55) prochlorperazine maleate [From Compazine] Allergy (Verified 03/22/18 18:55) aspirin [From Fiorinal-Codeine #3] Adverse Reaction (Verified 03/22/18 18:55) Delirium baclofen [Baclofen] Adverse Reaction (Verified 03/22/18 18:55) Hallucinations butalbital [From Fiorinal-Codeine #3] Adverse Reaction (Verified 03/22/18 18:55) Delirium caffeine [From Fiorinal-Codeine #3] Adverse Reaction (Verified 03/22/18 18:55) Delirium codeine phosphate [From Fiorinal-Codeine #3] Adverse Reaction (Verified 18:55) Delirium diphenhydramine HCl [From Benadryl] Adverse Reaction (Verified 03/22/18 18:55) metoclopramide HCl [From Reglan] Adverse Reaction (Verified 03/22/18 18:55) tramadol [Tramadol] Adverse Reaction (Verified 03/22/18 18:55) Hallucinations Past Medical History - General Information source: Patient, [facility] Records - Social History Cigarette use (# per day): Yes Chew tobacco use (# tins/day): No Frequency of alcohol use: None Drug Abuse: None Family history: Reviewed & Not Pertinent - Past Medical History Cardiac Medical History: Denies: Hx Heart Attack, Hx Hypertension Pulmonary Medical History: Denies: Hx Asthma Neurological Medical History: Reports: Hx Migraine, Hx Seizures - DEVELOPED AFTER CRANI LAST ABT A YEAR AGO. Denies: Hx Cerebrovascular Accident Renal/ Medical History: Denies: Hx Peritoneal Dialysis GI Medical History: Reports: Hx Gastroesophageal Reflux Disease. Denies: Hx Hepatitis, Hx Hiatal Hernia, Hx Ulcer Infectious Medical History: Denies: Hx Hepatitis Past Surgical History: Reports: Hx Hysterectomy, Hx Neurologic Surgery. Denies : Hx Mastectomy, Hx Open Heart Surgery, Hx Pacemaker - Immunizations Hx Diphtheria, Pertussis, Tetanus Vaccination: Yes Review of Systems - Review of Systems Constitutional: No symptoms reported EENT: No symptoms reported Cardiovascular: No symptoms reported Respiratory: No symptoms reported Gastrointestinal: Nausea, Vomiting Genitourinary: No symptoms reported Female Genitourinary: No symptoms reported Musculoskeletal: No symptoms reported Skin: No symptoms reported Hematologic/Lymphatic: No symptoms reported Neurological/Psychological: See HPI, Headaches Physical Exam - Vital signs Vitals: Temp Pulse Resp BP Pulse Ox 98.5 F 89 18 124/80 96 03/22/18 19:10 03/22/18 19:10 03/22/18 19:10 03/22/18 19:10 03/22/18 19:10 Interpretation: Normal - Respiratory Respiratory status: No respiratory distress Chest status: Nontender Breath sounds: Normal Chest palpation: Normal - Cardiovascular Rhythm: Regular Heart sounds: Normal auscultation Murmur: No - Extremities General upper extremity: Normal inspection, Nontender, Normal color, Normal ROM , Normal temperature General lower extremity: Normal inspection, Nontender, Normal color, Normal ROM , Normal temperature, Normal weight bearing. No: Alma Delia's sign - Neurological Neuro grossly intact: Yes Cognition: Normal Orientation: AAOx4 Somers Coma Scale Eye Opening: Spontaneous Fariba Coma Scale Verbal: Oriented Somers Coma Scale Motor: Obeys Commands Somers Coma Scale Total: 15 Speech: Normal Motor strength normal: LUE, RUE, LLE, RLE Sensory: Normal Course - Vital Signs Vital signs: Temp Pulse Resp BP Pulse Ox 98.5 F 89 18 124/80 96 03/22/18 19:10 03/22/18 19:10 03/22/18 19:10 03/22/18 19:10 03/22/18 19:10 Doctor's Discharge - Discharge Referrals: URMILA ALATORRE,MARITZA Myrick MD [Primary Care Provider] - Follow up as needed
--- NOTE | 2018-03-22 21:28 | ER Document Report ---
ED Headache - General Chief Complaint: Headache Stated Complaint: HEADACHE/NAUSEA/VOMITING Time Seen by Provider: 03/22/18 20:33 Notes: Patient is a 57-year-old female with a past medical history of chronic migraine headaches who presents with 1 of her typical headaches. She states for the past 2 days she has had a severe, bitemporal, throbbing headache with associated photophobia, phonophobia as well as nausea and vomiting. Headache is worsened by activity lights. She did not try her normal home medications to try to break the headache stating that she knows when it gets this severe they will not work. She states normally when she gets these headaches she comes to the emergency department and receives intramuscular hydromorphone and promethazine with resolution. She states there is nothing new or different about her headache today relative to her normal headaches. It has been getting progressively worse since onset. She states that this treatment regimen is approved by her neurologist. Of note I have seen this patient on one prior occasion and did review the letter from her neurologist who is agreeable to this treatment plan. The patient does deny any focal weakness, numbness, fever or constitutional symptoms. TRAVEL OUTSIDE OF THE [place] IN LAST 30 DAYS: No - Related Data Allergies/Adverse Reactions: buprenorphine [From Butrans] Allergy (Verified 03/22/18 18:55) Dyspnea butorphanol tartrate [From Stadol] Allergy (Verified 03/22/18 18:55) Seizures ketorolac tromethamine [From Toradol] Allergy (Verified 03/22/18 18:55) Seizures morphine [Morphine] Allergy (Verified 03/22/18 18:55) Swelling of Throat Penicillins Allergy (Verified 03/22/18 18:55) Generalized rash prochlorperazine edisylate [From Compazine] Allergy (Verified 03/22/18 18:55) prochlorperazine maleate [From Compazine] Allergy (Verified 03/22/18 18:55) aspirin [From Fiorinal-Codeine #3] Adverse Reaction (Verified 03/22/18 18:55) Delirium baclofen [Baclofen] Adverse Reaction (Verified 03/22/18 18:55) Hallucinations butalbital [From Fiorinal-Codeine #3] Adverse Reaction (Verified 03/22/18 18:55) Delirium caffeine [From Fiorinal-Codeine #3] Adverse Reaction (Verified 03/22/18 18:55) Delirium codeine phosphate [From Fiorinal-Codeine #3] Adverse Reaction (Verified 18:55) Delirium diphenhydramine HCl [From Benadryl] Adverse Reaction (Verified 03/22/18 18:55) metoclopramide HCl [From Reglan] Adverse Reaction (Verified 03/22/18 18:55) tramadol [Tramadol] Adverse Reaction (Verified 03/22/18 18:55) Hallucinations Past Medical History - General Information source: Patient, [facility] Records - Social History Smoking Status: Current Every Day Smoker Cigarette use (# per day): Yes Chew tobacco use (# tins/day): No Frequency of alcohol use: None Drug Abuse: None Lives with: Spouse/Significant other Family History: Reviewed & Not Pertinent Patient has suicidal ideation: No Patient has homicidal ideation: No - Past Medical History Cardiac Medical History: Denies: Hx Heart Attack, Hx Hypertension Pulmonary Medical History: Denies: Hx Asthma Neurological Medical History: Reports: Hx Migraine, Hx Seizures - DEVELOPED AFTER CRANI LAST ABT A YEAR AGO. Denies: Hx Cerebrovascular Accident Renal/ Medical History: Denies: Hx Peritoneal Dialysis GI Medical History: Reports: Hx Gastroesophageal Reflux Disease. Denies: Hx Hepatitis, Hx Hiatal Hernia, Hx Ulcer Infectious Medical History: Denies: Hx Hepatitis Past Surgical History: Reports: Hx Hysterectomy, Hx Neurologic Surgery. Denies : Hx Mastectomy, Hx Open Heart Surgery, Hx Pacemaker - Immunizations Hx Diphtheria, Pertussis, Tetanus Vaccination: Yes Review of Systems - Review of Systems Notes: Constitutional: Negative for fever. HENT: Negative for sore throat. Eyes: Negative for visual changes. Cardiovascular: Negative for chest pain. Respiratory: Negative for shortness of breath. Gastrointestinal: Negative for abdominal pain, vomiting or diarrhea. Genitourinary: Negative for dysuria. Musculoskeletal: Negative for back pain. Skin: Negative for rash. Neurological: positive for headache 10 point ROS negative except as marked above and in HPI. Physical Exam - Vital signs Vitals: Temp Pulse Resp BP Pulse Ox 98.5 F 89 18 124/80 96 03/22/18 19:10 03/22/18 19:10 03/22/18 19:10 03/22/18 19:10 03/22/18 19:10 Interpretation: Normal Notes: PHYSICAL EXAMINATION: GENERAL: Well-appearing, well-nourished and in no acute distress. HEAD: Atraumatic, normocephalic. EYES: Pupils equal round and reactive to light, extraocular movements intact, sclera anicteric, conjunctiva are normal. ENT: nares patent, oropharynx clear without exudates. Moist mucous membranes. NECK: Normal range of motion, supple without lymphadenopathy LUNGS: Breath sounds clear to auscultation bilaterally and equal. No wheezes rales or rhonchi. HEART: Regular rate and rhythm without murmurs ABDOMEN: Soft, nontender, normoactive bowel sounds. No guarding, no rebound. No masses appreciated. EXTREMITIES: Normal range of motion, no pitting or edema. No cyanosis. NEUROLOGICAL: Face symmetric. Tongue protrudes midline. Extraocular motions intact. Pupils are 2 mm and equally reactive. Normal speech, normal gait. 5 out of 5 strength in both the distal and proximal upper and lower extremities bilaterally. Sensation is grossly intact throughout. Finger to nose testing normal. Pronator drift normal. PSYCH: Normal mood, normal affect. SKIN: Warm, Dry, normal turgor, no rashes or lesions noted. Course - Re-evaluation Re-evalutation: 03/22/18 21:26 Presentation of a headache that appears to be most consistent with tension versus migrainous type headache. Headache was not maximal in onset, patient has no focal neurologic deficits, no nuchal rigidity, vital signs within normal limits, no papilledema, and patient is overall well in appearance. Based on clinical history and examination I do not suspect an acute subarachnoid hemorrhage, dural venous sinus thrombosis, acute meningitis, or intercranial mass. Given my low clinical suspicion for any acute life-threatening etiology, I do not feel advanced neuro imaging or laboratory testing is indicated at this time. Patient did receive her typical intramuscular dosing of Dilaudid and Phenergan with resolution of her headache and nausea. She is requesting refills of chronic pain medications which have informed her that unfortunately cannot provide. At this time will discharge with return precautions and follow- up recommendations. Verbal discharge instructions given a the bedside and opportunity for questions given. Medication warnings reviewed. Patient is in agreement with this plan and has verbalized understanding of return precautions and the need for primary care follow-up in the next 24-72 hours. - Vital Signs Vital signs: Temp Pulse Resp BP Pulse Ox 97.6 F 73 16 110/78 100 03/22/18 21:40 03/22/18 21:40 03/22/18 21:40 03/22/18 21:40 03/22/18 21:40 Discharge - Discharge Clinical Impression: Nausea Migraine headache Qualifiers: Migraine type: unspecified Status migrainosus presence: with status migrainosus Intractability: not intractable Qualified Code(s): G43.901 - Migraine, unspecified, not intractable, with status migrainosus Chronic pain Qualifiers: Chronic pain type: other chronic pain Qualified Code(s): G89.29 - Other chronic pain Condition: Good Disposition: HOME, SELF-CARE Additional Instructions: You were seen today for a migraine headache. Please follow-up with your primary care doctor regarding today's ED visit. Return to emergency department immediately if you develop a headache that gets to its maximum severity within 20 minutes of onset, you pass out, you develop weakness, numbness, changes in your vision, become unable to keep any fluids down for more than 12 hours, or develop a fever greater than 100.4 degrees Fahrenheit. As we discussed, unfortunately I cannot re-prescribe chronic pain medications due to her departmental policy and standard emergency medicine practice. Please follow-up with your primary care doctor regarding these issues as we discussed. Referrals: MARITZA KEARNS III, MD [NO LOCAL MD] - Follow up as needed
[2018-03-22 22:13] VITALS: BP 110/78
== END 2018-03-22 21:40 | disposition home or self-care (01) ==
LOC: ER 18:53
DX: G43.901 Migraine, unspecified, not intractable, with status migrainosus (principal); G89.29 Other chronic pain; R11.2 Nausea with vomiting, unspecified; F17.210 Nicotine dependence, cigarettes, uncomplicated; Z88.6 Allergy status to analgesic agent; Z88.0 Allergy status to penicillin; Z90.710 Acquired absence of both cervix and uterus
CPT/HCPCS: 99283; 96372; J1170; J2550

== ENCOUNTER 2018-03-23 13:46 | Emergency (ER) | payer OTHER ==
[2018-03-23 13:56] VITALS: BP 111/72
[2018-03-23] MEDS ORDERED: HYDROMORPHONE HCL INJ/PF 2 MG/ML AMPULE IM ONE (14:12)
[2018-03-23] MEDS ORDERED: PROMETHAZINE HCL INJ 25 MG/1 ML VIAL IM ONE (14:13)
--- NOTE | 2018-03-23 14:19 | ER Document Report ---
ED Medical Screen (RME) - General Chief Complaint: Headache >24 hrs old Stated Complaint: HEADACHE Time Seen by Provider: 03/23/18 14:12 Mode of Arrival: Ambulatory Information source: Patient Notes: This is a 57-year-old female with a history of migraines, cluster headaches, seizures and MS. Patient presents with typical migraine headache in the setting of running out of his medicines. She does have a doctor's appointment with a new physician on March 26 and has run out of some of her medicines. She denies any fever, chills but states she has had nausea and vomiting. TRAVEL OUTSIDE OF THE [place] IN LAST 30 DAYS: No - HPI Onset: Yesterday Onset/Duration: Gradual Quality of pain: Dull Severity: Moderate Pain Level: 2 Associated Symptoms: Nausea, Vomiting. denies: Abdominal pain, Fever, Shortness of breath Exacerbated by: Denies Relieved by: Denies Similar symptoms previously: Yes Recently seen / treated by doctor: Yes - Related Data Smoking: Non-smoker Frequency of alcohol use: None Drug Abuse: None Allergies/Adverse Reactions: buprenorphine [From Butrans] Allergy (Verified 03/23/18 13:46) Dyspnea butorphanol tartrate [From Stadol] Allergy (Verified 03/23/18 13:46) Seizures ketorolac tromethamine [From Toradol] Allergy (Verified 03/23/18 13:46) Seizures morphine [Morphine] Allergy (Verified 03/23/18 13:46) Swelling of Throat Penicillins Allergy (Verified 03/23/18 13:46) Generalized rash prochlorperazine edisylate [From Compazine] Allergy (Verified 03/23/18 13:46) prochlorperazine maleate [From Compazine] Allergy (Verified 03/23/18 13:46) aspirin [From Fiorinal-Codeine #3] Adverse Reaction (Verified 03/23/18 13:46) Delirium baclofen [Baclofen] Adverse Reaction (Verified 03/23/18 13:46) Hallucinations butalbital [From Fiorinal-Codeine #3] Adverse Reaction (Verified 03/23/18 13:46) Delirium caffeine [From Fiorinal-Codeine #3] Adverse Reaction (Verified 03/23/18 13:46) Delirium codeine phosphate [From Fiorinal-Codeine #3] Adverse Reaction (Verified 13:46) Delirium diphenhydramine HCl [From Benadryl] Adverse Reaction (Verified 03/23/18 13:46) metoclopramide HCl [From Reglan] Adverse Reaction (Verified 03/23/18 13:46) tramadol [Tramadol] Adverse Reaction (Verified 03/23/18 13:46) Hallucinations Past Medical History - General Information source: Patient - Social History Cigarette use (# per day): No Chew tobacco use (# tins/day): No Frequency of alcohol use: None Drug Abuse: None Lives with: Spouse/Significant other Family history: Reviewed & Not Pertinent - Past Medical History Cardiac Medical History: Denies: Hx Heart Attack, Hx Hypertension Pulmonary Medical History: Denies: Hx Asthma Neurological Medical History: Reports: Hx Migraine, Hx Seizures - DEVELOPED AFTER CRANI LAST ABT A YEAR AGO. Denies: Hx Cerebrovascular Accident Renal/ Medical History: Denies: Hx Peritoneal Dialysis GI Medical History: Reports: Hx Gastroesophageal Reflux Disease. Denies: Hx Hepatitis, Hx Hiatal Hernia, Hx Ulcer Infectious Medical History: Denies: Hx Hepatitis Past Surgical History: Reports: Hx Hysterectomy, Hx Neurologic Surgery. Denies : Hx Mastectomy, Hx Open Heart Surgery, Hx Pacemaker - Immunizations Hx Diphtheria, Pertussis, Tetanus Vaccination: Yes Review of Systems - Review of Systems Constitutional: denies: Chills, Fever EENT: No symptoms reported Cardiovascular: No symptoms reported Respiratory: No symptoms reported Gastrointestinal: No symptoms reported Genitourinary: No symptoms reported Female Genitourinary: No symptoms reported Musculoskeletal: No symptoms reported Skin: No symptoms reported Hematologic/Lymphatic: No symptoms reported Neurological/Psychological: See HPI Physical Exam - Vital signs Vitals: Temp Pulse Resp BP Pulse Ox 98.1 F 84 18 111/72 97 03/23/18 13:55 03/23/18 13:55 03/23/18 13:55 03/23/18 13:55 03/23/18 13:55 Notes: Physical exam: GENERAL: 57-year-old female, alert and oriented 3, no acute distress HEAD: Atraumatic, normocephalic. EYES: Pupils equal round and reactive to light, extraocular movements intact, sclera anicteric, conjunctiva are normal. ENT: TMs normal, nares patent, oropharynx clear without exudates. Moist mucous membranes. NECK: Normal range of motion, supple without obvious mass or JVD. LUNGS: Breath sounds clear to auscultation bilaterally and equal. No wheezes rales or rhonchi. HEART: Regular rate and rhythm without murmurs, rubs or gallops. ABDOMEN: Soft, normoactive bowel sounds. No tenderness to palpation. No guarding, no rebound. No masses appreciated. EXTREMITIES: Normal range of motion, no pitting or edema. No clubbing or cyanosis. NEUROLOGICAL: Patient complaining of headache. No photophobia. No neck stiffness. Cranial nerves II through XII grossly intact. Normal speech, moving all extremities. Motor 5/5, sensory grossly intact, gait normal. There is no evidence of meningismus. PSYCH: Normal mood, normal affect. SKIN: Warm, Dry, normal turgor, no rashes or lesions noted. Course - Re-evaluation Re-evalutation: 03/23/18 14:18 Note: Patient looks very up-to-date to her own illness. She states when it reaches this point, she is usually treated with IM shots. Her venous access is very poor and I see no indication for any blood work at this time. She has a number of allergies to medicines. She has been nauseated and states she is unable to take her oral Phenergan and she says rectal suppositories do not work for her. Thus, we will treat her with her standard dose of Dilaudid IM and Phenergan IM. I did discuss with her that we try to avoid IM shots of Phenergan due to tissue irritation, but she says she has tolerated this in the past and this tends to be the best route when she reaches this point. - Vital Signs Vital signs: Temp Pulse Resp BP Pulse Ox 98.1 F 84 18 111/72 97 03/23/18 13:55 03/23/18 13:55 03/23/18 13:55 03/23/18 13:55 03/23/18 13:55 Doctor's Discharge - Discharge Clinical Impression: Migraine headache Condition: Stable Disposition: HOME, SELF-CARE Instructions: Migraine Headache ([facility]) Prescriptions: Oxycodone HCl [Oxycodone HCl 10 MG Tablet] 10 mg PO Q6HP PRN #16 tablet PRN Reason: Promethazine HCl [Phenergan 25 mg Tablet] 25 mg PO Q6H PRN #15 tablet PRN Reason: Referrals: ROMINA MENDOZA MD [Primary Care Provider] - 03/26/18
== END 2018-03-23 15:05 | disposition home or self-care (01) ==
LOC: ER 13:46
DX: G43.909 Migraine, unspecified, not intractable, without status migrainosus (principal); R11.2 Nausea with vomiting, unspecified; T50.906A Underdosing of unspecified drugs, medicaments and biological substances, initial encounter; Z91.128 Patient's intentional underdosing of medication regimen for other reason; Z91.14 Patient's other noncompliance with medication regimen; Z88.5 Allergy status to narcotic agent; Z88.8 Allergy status to other drugs, medicaments and biological substances; Z88.0 Allergy status to penicillin
CPT/HCPCS: 99283; 96372; J1170; J2550

== ENCOUNTER 2018-04-23 19:03 | Emergency (ER) | payer OTHER ==
[2018-04-23] MEDS ORDERED: PROMETHAZINE HCL INJ 25 MG/1 ML VIAL IM ONE (20:07)
[2018-04-23] MEDS ORDERED: HYDROMORPHONE HCL INJ/PF 2 MG/ML AMPULE IM ONE (20:08)
--- NOTE | 2018-04-23 20:13 | ER Document Report ---
ED Headache - General Chief Complaint: Headache Stated Complaint: VOMITING AND HEADACHE Time Seen by Provider: 04/23/18 19:52 Mode of Arrival: Ambulatory Information source: Patient Notes: Patient is a 58-year-old female who presents with headache symptoms that started yesterday at noon. Patient describes this as one of her typical migraines. Patient reports that she began with a visual aura which gradually progressed onto a headache with nausea and vomiting. Patient reports that she has attempted to take her home medications however she has vomited them each time. patient denies any aggravating or alleviating factors. Patient has been seen here for similar episodes in the past. Patient does have multiple allergies and is typically treated with IM Dilaudid and IM Phenergan. TRAVEL OUTSIDE OF THE [place] IN LAST 30 DAYS: No - Related Data Allergies/Adverse Reactions: buprenorphine [From Butrans] Allergy (Verified 03/23/18 13:46) Dyspnea butorphanol tartrate [From Stadol] Allergy (Verified 03/23/18 13:46) Seizures ketorolac tromethamine [From Toradol] Allergy (Verified 03/23/18 13:46) Seizures morphine [Morphine] Allergy (Verified 03/23/18 13:46) Swelling of Throat Penicillins Allergy (Verified 03/23/18 13:46) Generalized rash prochlorperazine edisylate [From Compazine] Allergy (Verified 03/23/18 13:46) prochlorperazine maleate [From Compazine] Allergy (Verified 03/23/18 13:46) aspirin [From Fiorinal-Codeine #3] Adverse Reaction (Verified 03/23/18 13:46) Delirium baclofen [Baclofen] Adverse Reaction (Verified 03/23/18 13:46) Hallucinations butalbital [From Fiorinal-Codeine #3] Adverse Reaction (Verified 03/23/18 13:46) Delirium caffeine [From Fiorinal-Codeine #3] Adverse Reaction (Verified 03/23/18 13:46) Delirium codeine phosphate [From Fiorinal-Codeine #3] Adverse Reaction (Verified 13:46) Delirium diphenhydramine HCl [From Benadryl] Adverse Reaction (Verified 03/23/18 13:46) metoclopramide HCl [From Reglan] Adverse Reaction (Verified 03/23/18 13:46) tramadol [Tramadol] Adverse Reaction (Verified 03/23/18 13:46) Hallucinations Past Medical History - General Information source: Patient - Social History Smoking Status: Current Every Day Smoker Chew tobacco use (# tins/day): No Frequency of alcohol use: None Drug Abuse: None Family History: Reviewed & Not Pertinent Patient has suicidal ideation: No Patient has homicidal ideation: No - Past Medical History Cardiac Medical History: Denies: Hx Heart Attack, Hx Hypertension Pulmonary Medical History: Denies: Hx Asthma Neurological Medical History: Reports: Hx Migraine, Hx Seizures - DEVELOPED AFTER CRANI LAST ABT A YEAR AGO. Denies: Hx Cerebrovascular Accident Renal/ Medical History: Denies: Hx Peritoneal Dialysis GI Medical History: Reports: Hx Gastroesophageal Reflux Disease. Denies: Hx Hepatitis, Hx Hiatal Hernia, Hx Ulcer Infectious Medical History: Denies: Hx Hepatitis Past Surgical History: Reports: Hx Hysterectomy, Hx Neurologic Surgery. Denies : Hx Mastectomy, Hx Open Heart Surgery, Hx Pacemaker - Immunizations Immunizations up to date: Yes Hx Diphtheria, Pertussis, Tetanus Vaccination: Yes Review of Systems - Review of Systems Constitutional: No symptoms reported EENT: No symptoms reported Cardiovascular: No symptoms reported Respiratory: No symptoms reported Gastrointestinal: No symptoms reported Genitourinary: No symptoms reported Female Genitourinary: No symptoms reported Musculoskeletal: No symptoms reported Skin: No symptoms reported Hematologic/Lymphatic: No symptoms reported Neurological/Psychological: See HPI Physical Exam - Vital signs Vitals: Temp Pulse Resp BP Pulse Ox 98.2 F 134 H 17 131/98 H 99 04/23/18 19:34 04/23/18 19:34 04/23/18 19:34 04/23/18 19:34 04/23/18 19:34 - Notes Notes: Physical exam: GENERAL: 58-year-old female, alert and oriented 3, no acute distress HEAD: Atraumatic, normocephalic. EYES: Pupils equal round and reactive to light, extraocular movements intact, sclera anicteric, conjunctiva are normal. ENT: TMs normal, nares patent, oropharynx clear without exudates. Moist mucous membranes. NECK: Normal range of motion, supple without obvious mass or JVD. LUNGS: Breath sounds clear to auscultation bilaterally and equal. No wheezes rales or rhonchi. HEART: Regular rate and rhythm without murmurs, rubs or gallops. ABDOMEN: Soft, normoactive bowel sounds. No tenderness to palpation. No guarding, no rebound. No masses appreciated. EXTREMITIES: Normal range of motion, no pitting or edema. No clubbing or cyanosis. NEUROLOGICAL: Patient complaining of headache. No photophobia. No neck stiffness. Cranial nerves II through XII grossly intact. Normal speech, moving all extremities. Motor 5/5, sensory grossly intact, gait normal. There is no evidence of meningismus. PSYCH: Normal mood, normal affect. SKIN: Warm, Dry, normal turgor, no rashes or lesions noted. Course - Re-evaluation Re-evalutation: Patient is an otherwise healthy 58-year-old female presenting with a migraine type headache. Patient reports a long history of migraines. She states when it reaches this point, she is usually treated with IM shots. Her venous access is very poor. She multiple medication allergies. She has been nauseated and states she is unable to take her oral Phenergan and she says rectal suppositories do not work for her. Thus, we will treat her with her standard dose of Dilaudid IM and Phenergan IM. I did discuss with her that we try to avoid IM shots of Phenergan due to tissue irritation, but she says she has tolerated this in the past and this tends to be the best route when she reaches this point. Will proceed with IM Phenergan and IM Dilaudid and reevaluate the patient. Patient reports complete resolution of her headache one hour after administration of medications. Patient will be discharged home in stable condition. Patient will follow up with her primary care provider as needed. Patient given ED return precautions which patient verbalized understanding of. - Vital Signs Vital signs: Temp Pulse Resp BP Pulse Ox 98.6 F 96 16 117/75 98 04/23/18 22:00 04/23/18 22:00 04/23/18 22:00 04/23/18 22:00 04/23/18 22:00 Discharge - Discharge Clinical Impression: Migraine Qualifiers: Migraine type: with aura Status migrainosus presence: without status migrainosus Intractability: not intractable Qualified Code(s): G43.109 - Migraine with aura, not intractable, without status migrainosus Condition: Stable Disposition: HOME, SELF-CARE Additional Instructions: You were seen today for a migraine headache. Please follow-up with your primary care doctor regarding today's ED visit. Return to emergency department immediately if you develop a headache that gets to its maximum severity within 20 minutes of onset, you pass out, you develop weakness, numbness, changes in your vision, become unable to keep any fluids down for more than 12 hours, or develop a fever greater than 100.4 degrees Fahrenheit. Referrals: ROMINA MENDOZA MD [Primary Care Provider] - Follow up as needed
[2018-04-23] MEDS ORDERED: TOPIRAMATE 25 MG TABLET PO ONE (21:43)
[2018-04-23] MEDS ORDERED: GABAPENTIN 300 MG CAPSULE PO ONE (21:43)
[2018-04-23 22:03] VITALS: BP 117/75
== END 2018-04-23 22:03 | disposition home or self-care (01) ==
LOC: ER 19:03
DX: G43.109 Migraine with aura, not intractable, without status migrainosus (principal); R11.2 Nausea with vomiting, unspecified; F17.200 Nicotine dependence, unspecified, uncomplicated; Z88.5 Allergy status to narcotic agent; Z88.8 Allergy status to other drugs, medicaments and biological substances; Z88.0 Allergy status to penicillin
CPT/HCPCS: 99283; 96372; J1170; J2550; J3490

== ENCOUNTER 2018-05-14 04:33 | Emergency (ER) | payer OTHER ==
[2018-05-14] MEDS ORDERED: HYDROMORPHONE HCL INJ/PF 2 MG/ML AMPULE IM ONE (05:16)
[2018-05-14] MEDS ORDERED: PROMETHAZINE HCL INJ 25 MG/1 ML VIAL IM ONE ×2 (05:17→06:29)
--- NOTE | 2018-05-14 05:19 | ER Document Report ---
ED Headache - General Chief Complaint: Headache Stated Complaint: HEADACHE Time Seen by Provider: 05/14/18 05:10 Notes: Patient is a 58-year-old female comes emergency department for chief complaint of a headache that started at 1 PM in the afternoon. She states that normally she takes her pain and nausea medications and she can knock out her headache, she states however she waited too long and she started to vomit and now she came in because she has vomited several times. She states that this is her typical migraine, she always starts out with worsening pain, photophobia, phonophobia, and then nausea and vomiting. She denies head injury, fever. She follows with neurology Dr. Mccray's, has had full workup, ongoing management, and she states she is not out of her home medications including Phenergan and Dilaudid but when she gets to this point she needs IM medication to break the headache. Has been at bedside, confirms this. Additional medical history includes chronic neck pain, multiple sclerosis. TRAVEL OUTSIDE OF THE [place] IN LAST 30 DAYS: No - Related Data Allergies/Adverse Reactions: buprenorphine [From Butrans] Allergy (Verified 03/23/18 13:46) Dyspnea butorphanol tartrate [From Stadol] Allergy (Verified 03/23/18 13:46) Seizures ketorolac tromethamine [From Toradol] Allergy (Verified 03/23/18 13:46) Seizures morphine [Morphine] Allergy (Verified 03/23/18 13:46) Swelling of Throat Penicillins Allergy (Verified 03/23/18 13:46) Generalized rash prochlorperazine edisylate [From Compazine] Allergy (Verified 03/23/18 13:46) prochlorperazine maleate [From Compazine] Allergy (Verified 03/23/18 13:46) aspirin [From Fiorinal-Codeine #3] Adverse Reaction (Verified 03/23/18 13:46) Delirium baclofen [Baclofen] Adverse Reaction (Verified 03/23/18 13:46) Hallucinations butalbital [From Fiorinal-Codeine #3] Adverse Reaction (Verified 03/23/18 13:46) Delirium caffeine [From Fiorinal-Codeine #3] Adverse Reaction (Verified 03/23/18 13:46) Delirium codeine phosphate [From Fiorinal-Codeine #3] Adverse Reaction (Verified 13:46) Delirium diphenhydramine HCl [From Benadryl] Adverse Reaction (Verified 03/23/18 13:46) metoclopramide HCl [From Reglan] Adverse Reaction (Verified 03/23/18 13:46) tramadol [Tramadol] Adverse Reaction (Verified 03/23/18 13:46) Hallucinations Past Medical History - General Information source: Patient - Social History Smoking Status: Never Smoker Frequency of alcohol use: None Drug Abuse: None Lives with: Family Family History: Reviewed & Not Pertinent - Past Medical History Cardiac Medical History: Denies: Hx Heart Attack, Hx Hypertension Pulmonary Medical History: Denies: Hx Asthma Neurological Medical History: Reports: Hx Migraine, Hx Seizures - DEVELOPED AFTER CRANI. Denies: Hx Cerebrovascular Accident Renal/ Medical History: Denies: Hx Peritoneal Dialysis GI Medical History: Reports: Hx Gastroesophageal Reflux Disease. Denies: Hx Hepatitis, Hx Hiatal Hernia, Hx Ulcer Infectious Medical History: Denies: Hx Hepatitis Past Surgical History: Reports: Hx Hysterectomy, Hx Neurologic Surgery. Denies : Hx Mastectomy, Hx Open Heart Surgery, Hx Pacemaker - Immunizations Immunizations up to date: Yes Hx Diphtheria, Pertussis, Tetanus Vaccination: Yes Review of Systems - Review of Systems Constitutional: No symptoms reported EENT: No symptoms reported Cardiovascular: No symptoms reported Respiratory: No symptoms reported Gastrointestinal: See HPI Genitourinary: No symptoms reported Female Genitourinary: No symptoms reported Musculoskeletal: No symptoms reported Skin: No symptoms reported Hematologic/Lymphatic: No symptoms reported Neurological/Psychological: See HPI Physical Exam - Vital signs Vitals: Temp Pulse Resp BP Pulse Ox 99.4 F 102 H 20 154/93 H 97 05/14/18 04:38 05/14/18 04:38 05/14/18 04:38 05/14/18 04:38 05/14/18 04:38 - Notes Notes: GENERAL: Patient frail-appearing. Alert, interacts well. No acute distress. HEAD: Normocephalic, atraumatic. EYES: Pupils equal, round, and reactive to light. Extraocular movements intact. ENT: Oral mucosa moist, tongue midline. NECK: Full range of motion. Supple. Trachea midline. LUNGS: Clear to auscultation bilaterally, no wheezes, rales, or rhonchi. No respiratory distress. HEART: Regular rate and rhythm. No murmur ABDOMEN: Soft, non-tender. Non-distended. Bowel sounds present in all 4 quadrants. EXTREMITIES: Moves all 4 extremities spontaneously. No edema, normal radial and dorsalis pedis pulses bilaterally. No cyanosis. BACK: Appears to have chronic kyphosis. No tenderness noted. Normal distal neurovascular exam, normal strength all extremities. NEUROLOGICAL: Alert and oriented x3. Normal speech. [cranial nerves II through XII grossly intact]. PSYCH: Normal affect, normal mood. SKIN: Warm, dry, normal turgor. No rashes or lesions noted. Course - Re-evaluation Re-evalutation: Patient well-appearing. She is not tachycardic on my exam. No signs of distress. Reports of her typical migraine symptoms. Denies any symptoms out of the ordinary. Denies trauma, no sudden maximal onset headache, no nuchal rigidity, no fever. Based on patient's appearance and the characterization of her headache I have low suspicion of subarachnoid hemorrhage, meningitis, or other emergent abnormality. On reevaluation patient states her headache is resolved, she still has some mild nausea and requests medication for it, states otherwise she is ready to go home. She remains well-appearing, no neurological deficits. Patient has excellent neurology follow-up. Discussed follow-up and return precautions. Patient states understanding and agreement. - Vital Signs Vital signs: Temp Pulse Resp BP Pulse Ox 99.4 F 102 H 20 154/93 H 97 05/14/18 04:38 05/14/18 04:38 05/14/18 04:38 05/14/18 04:38 05/14/18 04:38 Discharge - Discharge Clinical Impression: Headache Qualifiers: Headache type: unspecified Headache chronicity pattern: acute headache Intractability: not intractable Qualified Code(s): R51 - Headache Condition: Stable Disposition: HOME, SELF-CARE Additional Instructions: Please follow-up with your provider for additional evaluation and management of your migraine headaches. Return if you worsen including returned headache, vomiting, fever 100.4 greater , or any other concerning symptoms. Referrals: ROMINA MENDOZA MD [Primary Care Provider] - Follow up as needed
[2018-05-14 07:43] VITALS: BP 151/66
== END 2018-05-14 07:43 | disposition home or self-care (01) ==
LOC: ER 04:33
DX: R51 Headache (principal); R11.0 Nausea; Z88.6 Allergy status to analgesic agent; Z88.0 Allergy status to penicillin; Z90.710 Acquired absence of both cervix and uterus
CPT/HCPCS: 99283; 96372; J1170; J2550

== ENCOUNTER 2018-05-14 12:53 | Emergency (ER) | payer OTHER ==
[2018-05-14 13:03] VITALS: BP 141/96
[2018-05-14] MEDS ORDERED: HYDROMORPHONE HCL INJ/PF 2 MG/ML AMPULE IM ONE (13:27)
[2018-05-14] MEDS ORDERED: PROMETHAZINE HCL INJ 25 MG/1 ML VIAL IM ONE (13:28)
--- NOTE | 2018-05-14 13:30 | ER Document Report ---
ED Medical Screen (RME) - General Chief Complaint: Headache >24 hrs old Stated Complaint: HEADACHE, VOMITING Time Seen by Provider: 05/14/18 13:26 Mode of Arrival: Wheelchair Information source: Patient Notes: 58-year-old female with a history of seizures status post craniotomy (AVM), MS, migraine headaches who presents to the emergency room with persistent headache, nausea, vomiting and not tolerating her antiseizure medicines. Patient is requesting IM medicines that she is a difficult stick. She is afebrile with stable vital signs and she does not appear in any acute distress. TRAVEL OUTSIDE OF THE [place] IN LAST 30 DAYS: No - Related Data Allergies/Adverse Reactions: buprenorphine [From Butrans] Allergy (Verified 05/14/18 13:15) Dyspnea butorphanol tartrate [From Stadol] Allergy (Verified 05/14/18 13:15) Seizures ketorolac tromethamine [From Toradol] Allergy (Verified 05/14/18 13:15) Seizures morphine [Morphine] Allergy (Verified 05/14/18 13:15) Swelling of Throat Penicillins Allergy (Verified 05/14/18 13:15) Generalized rash prochlorperazine edisylate [From Compazine] Allergy (Verified 05/14/18 13:15) prochlorperazine maleate [From Compazine] Allergy (Verified 05/14/18 13:15) aspirin [From Fiorinal-Codeine #3] Adverse Reaction (Verified 05/14/18 13:15) Delirium baclofen [Baclofen] Adverse Reaction (Verified 05/14/18 13:15) Hallucinations butalbital [From Fiorinal-Codeine #3] Adverse Reaction (Verified 05/14/18 13:15) Delirium caffeine [From Fiorinal-Codeine #3] Adverse Reaction (Verified 05/14/18 13:15) Delirium codeine phosphate [From Fiorinal-Codeine #3] Adverse Reaction (Verified 13:15) Delirium diphenhydramine HCl [From Benadryl] Adverse Reaction (Verified 05/14/18 13:15) metoclopramide HCl [From Reglan] Adverse Reaction (Verified 05/14/18 13:15) tramadol [Tramadol] Adverse Reaction (Verified 05/14/18 13:15) Hallucinations Past Medical History - Social History Chew tobacco use (# tins/day): No Frequency of alcohol use: None Drug Abuse: None Family history: Reviewed & Not Pertinent - Past Medical History Cardiac Medical History: Denies: Hx Heart Attack, Hx Hypertension Pulmonary Medical History: Denies: Hx Asthma Neurological Medical History: Reports: Hx Migraine, Hx Seizures - DEVELOPED AFTER CRANI. Denies: Hx Cerebrovascular Accident Renal/ Medical History: Denies: Hx Peritoneal Dialysis GI Medical History: Reports: Hx Gastroesophageal Reflux Disease. Denies: Hx Hepatitis, Hx Hiatal Hernia, Hx Ulcer Infectious Medical History: Denies: Hx Hepatitis Past Surgical History: Reports: Hx Hysterectomy, Hx Neurologic Surgery. Denies : Hx Mastectomy, Hx Open Heart Surgery, Hx Pacemaker - Immunizations Immunizations up to date: Yes Hx Diphtheria, Pertussis, Tetanus Vaccination: Yes Physical Exam - Vital signs Vitals: Temp Pulse Resp BP Pulse Ox 99.7 F 115 H 20 141/96 H 96 05/14/18 13:00 05/14/18 13:00 05/14/18 13:00 05/14/18 13:00 05/14/18 13:00 Course - Vital Signs Vital signs: Temp Pulse Resp BP Pulse Ox 99.7 F 115 H 20 141/96 H 96 05/14/18 13:00 05/14/18 13:00 05/14/18 13:00 05/14/18 13:00 05/14/18 13:00 Doctor's Discharge - Discharge Referrals: ROMINA MENDOZA MD [Primary Care Provider] - Follow up as needed
--- NOTE | 2018-05-14 14:14 | ER Document Report ---
ED Headache - General Mode of Arrival: Wheelchair TRAVEL OUTSIDE OF THE [place] IN LAST 30 DAYS: No - General Chief Complaint: Headache >24 hrs old Stated Complaint: HEADACHE, VOMITING Time Seen by Provider: 05/14/18 13:26 - Related Data Allergies/Adverse Reactions: buprenorphine [From Butrans] Allergy (Verified 05/14/18 13:15) Dyspnea butorphanol tartrate [From Stadol] Allergy (Verified 05/14/18 13:15) Seizures ketorolac tromethamine [From Toradol] Allergy (Verified 05/14/18 13:15) Seizures morphine [Morphine] Allergy (Verified 05/14/18 13:15) Swelling of Throat Penicillins Allergy (Verified 05/14/18 13:15) Generalized rash prochlorperazine edisylate [From Compazine] Allergy (Verified 05/14/18 13:15) prochlorperazine maleate [From Compazine] Allergy (Verified 05/14/18 13:15) aspirin [From Fiorinal-Codeine #3] Adverse Reaction (Verified 05/14/18 13:15) Delirium baclofen [Baclofen] Adverse Reaction (Verified 05/14/18 13:15) Hallucinations butalbital [From Fiorinal-Codeine #3] Adverse Reaction (Verified 05/14/18 13:15) Delirium caffeine [From Fiorinal-Codeine #3] Adverse Reaction (Verified 05/14/18 13:15) Delirium codeine phosphate [From Fiorinal-Codeine #3] Adverse Reaction (Verified 13:15) Delirium diphenhydramine HCl [From Benadryl] Adverse Reaction (Verified 05/14/18 13:15) metoclopramide HCl [From Reglan] Adverse Reaction (Verified 05/14/18 13:15) tramadol [Tramadol] Adverse Reaction (Verified 05/14/18 13:15) Hallucinations Past Medical History - General Information source: Patient - Social History Smoking Status: Current Every Day Smoker Chew tobacco use (# tins/day): No Frequency of alcohol use: None Drug Abuse: None Family History: Reviewed & Not Pertinent Patient has suicidal ideation: No Patient has homicidal ideation: No - Past Medical History Cardiac Medical History: Denies: Hx Heart Attack, Hx Hypertension Pulmonary Medical History: Denies: Hx Asthma Neurological Medical History: Reports: Hx Migraine, Hx Seizures - DEVELOPED AFTER CRANI. Denies: Hx Cerebrovascular Accident Renal/ Medical History: Denies: Hx Peritoneal Dialysis GI Medical History: Reports: Hx Gastroesophageal Reflux Disease. Denies: Hx Hepatitis, Hx Hiatal Hernia, Hx Ulcer Infectious Medical History: Denies: Hx Hepatitis Past Surgical History: Reports: Hx Hysterectomy, Hx Neurologic Surgery. Denies : Hx Mastectomy, Hx Open Heart Surgery, Hx Pacemaker - Immunizations Immunizations up to date: Yes Hx Diphtheria, Pertussis, Tetanus Vaccination: Yes - Vital signs Vitals: Temp Pulse Resp BP Pulse Ox 99.7 F 115 H 20 141/96 H 96 05/14/18 13:00 05/14/18 13:00 05/14/18 13:00 05/14/18 13:00 05/14/18 13:00 - Vital Signs Vital signs: Temp Pulse Resp BP Pulse Ox 99.7 F 115 H 20 141/96 H 96 05/14/18 13:00 05/14/18 13:00 05/14/18 13:00 05/14/18 13:00 05/14/18 13:00 Discharge - Discharge Clinical Impression: Migraine Qualifiers: Migraine type: unspecified Status migrainosus presence: with status migrainosus Intractability: intractable Qualified Code(s): G43.911 - Migraine, unspecified, intractable, with status migrainosus Condition: Good Disposition: HOME, SELF-CARE Instructions: Migraine Headache ([facility]) Referrals: ROMINA MENDOZA MD [Primary Care Provider] - Follow up as needed
[2018-05-14] MEDS ORDERED: DEXAMETHASONE SOD PHOS INJ 10 MG/1 ML VIAL IM ONE (14:39)
--- NOTE | 2018-05-14 14:48 | ER Document Report ---
ED General - General Chief Complaint: Headache >24 hrs old Stated Complaint: HEADACHE, VOMITING Time Seen by Provider: 05/14/18 13:26 Mode of Arrival: Wheelchair TRAVEL OUTSIDE OF THE [place] IN LAST 30 DAYS: No - HPI Notes: 58-year-old female with an exceptionally complicated migraine history and a long list of allergies migraine headache. 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 She sees a local neurologist and between different allergies and ineffective medications she effectively is at home now taking Phenergan and Demerol when the migraine headaches. However she came in Sunday with a migraine that began on Sunday, was given Dilaudid and Phenergan with some improvement, discharge home but now has had recurrent and refractory symptoms. Nausea and vomiting. Stereotypical for previous migraine headache, rapid onset sharp and severe. Frontal. No other modifying factors, no other associated symptoms, no other provocative or palliative factors. - Related Data Allergies/Adverse Reactions: buprenorphine [From Butrans] Allergy (Verified 05/14/18 13:15) Dyspnea butorphanol tartrate [From Stadol] Allergy (Verified 05/14/18 13:15) Seizures ketorolac tromethamine [From Toradol] Allergy (Verified 05/14/18 13:15) Seizures morphine [Morphine] Allergy (Verified 05/14/18 13:15) Swelling of Throat Penicillins Allergy (Verified 05/14/18 13:15) Generalized rash prochlorperazine edisylate [From Compazine] Allergy (Verified 05/14/18 13:15) prochlorperazine maleate [From Compazine] Allergy (Verified 05/14/18 13:15) aspirin [From Fiorinal-Codeine #3] Adverse Reaction (Verified 05/14/18 13:15) Delirium baclofen [Baclofen] Adverse Reaction (Verified 05/14/18 13:15) Hallucinations butalbital [From Fiorinal-Codeine #3] Adverse Reaction (Verified 05/14/18 13:15) Delirium caffeine [From Fiorinal-Codeine #3] Adverse Reaction (Verified 05/14/18 13:15) Delirium codeine phosphate [From Fiorinal-Codeine #3] Adverse Reaction (Verified 13:15) Delirium diphenhydramine HCl [From Benadryl] Adverse Reaction (Verified 05/14/18 13:15) metoclopramide HCl [From Reglan] Adverse Reaction (Verified 05/14/18 13:15) tramadol [Tramadol] Adverse Reaction (Verified 05/14/18 13:15) Hallucinations Past Medical History - General Information source: Patient - Social History Smoking Status: Current Every Day Smoker Chew tobacco use (# tins/day): No Frequency of alcohol use: None Drug Abuse: None Family History: Reviewed & Not Pertinent Patient has suicidal ideation: No Patient has homicidal ideation: No - Past Medical History Cardiac Medical History: Denies: Hx Heart Attack, Hx Hypertension Pulmonary Medical History: Denies: Hx Asthma Neurological Medical History: Reports: Hx Migraine, Hx Seizures - DEVELOPED AFTER CRANI. Denies: Hx Cerebrovascular Accident Renal/ Medical History: Denies: Hx Peritoneal Dialysis GI Medical History: Reports: Hx Gastroesophageal Reflux Disease. Denies: Hx Hepatitis, Hx Hiatal Hernia, Hx Ulcer Infectious Medical History: Denies: Hx Hepatitis Past Surgical History: Reports: Hx Hysterectomy, Hx Neurologic Surgery. Denies : Hx Mastectomy, Hx Open Heart Surgery, Hx Pacemaker - Immunizations Immunizations up to date: Yes Hx Diphtheria, Pertussis, Tetanus Vaccination: Yes Review of Systems - Review of Systems Notes: Review of systems as in the history of present illness, otherwise negative x 10 systems. Physical Exam - Vital signs Vitals: Temp Pulse Resp BP Pulse Ox 99.7 F 115 H 20 141/96 H 96 05/14/18 13:00 05/14/18 13:00 05/14/18 13:00 05/14/18 13:00 05/14/18 13:00 - Notes Notes: General: Well developed, well nourished. HEENT: Normocephalic, atraumatic. PEERL. No conjunctival injection. Neck: Supple, no significant adenopathy. No meningismus. Chest: Clear bilaterally, good air entry. Abdomen: Soft, non-tender, nondistended. Back: Non-tender. Normal ROM Extremities: No cyanosis, clubbing or edema. Vascular: Symmetric peripheral pulses, normal capillary refill. Skin: No significant rash. No petechiae or purpura. Motor: Normal tone and power. Symmetric. Neurologic: Alert and oriented to person place and time. Cranial nerves II-12 are intact. Sensation intact and symmetric in the upper and lower extremities. No cerebellar findings including finger-nose testing. No clonus. Gait normal. Funduscopic exam shows crisp disc margins, no evidence of papilledema. Course - Re-evaluation Re-evalutation: 05/14/18 14:48 58-year-old female the after mentioned symptoms with status migraine. Of note, patient was seen by physician in triage and had Phenergan and Dilaudid ordered. Although unusual and very rare for us to treat migraine with opiates, I spoken at great length with both the patient and her . They are exceptionally knowledgeable and articulate with regard to her illness and explained very reasonably the rationale behind her therapy. At this point she actually feels markedly improved. I am going to add on an additional injection of Decadron to help prevent recurrence. She is asked to contact her neurologist in the morning. - Vital Signs Vital signs: Temp Pulse Resp BP Pulse Ox 99.7 F 115 H 20 141/96 H 96 05/14/18 13:00 05/14/18 13:00 05/14/18 13:00 05/14/18 13:00 05/14/18 13:00 Discharge - Discharge Clinical Impression: Migraine Qualifiers: Migraine type: unspecified Status migrainosus presence: with status migrainosus Intractability: intractable Qualified Code(s): G43.911 - Migraine, unspecified, intractable, with status migrainosus Condition: Good Disposition: HOME, SELF-CARE Instructions: Migraine Headache ([facility]) Referrals: ROMINA MENDOZA MD [Primary Care Provider] - Follow up as needed
== END 2018-05-14 15:23 | disposition home or self-care (01) ==
LOC: ER 12:53
DX: G43.911 Migraine, unspecified, intractable, with status migrainosus (principal); F17.200 Nicotine dependence, unspecified, uncomplicated; Z90.710 Acquired absence of both cervix and uterus; Z88.6 Allergy status to analgesic agent
CPT/HCPCS: 99283; 96372; J1170; J2550; J1100

== ENCOUNTER 2018-05-15 03:34 | Emergency (ER) | payer OTHER ==
[2018-05-15] MEDS ORDERED: PROMETHAZINE HCL INJ 25 MG/1 ML VIAL IM ONE (06:48)
[2018-05-15] MEDS ORDERED: HYDROMORPHONE HCL INJ/PF 2 MG/ML AMPULE IM ONE (06:48)
--- NOTE | 2018-05-15 07:07 | ER Document Report ---
ED Headache - General Chief Complaint: Headache Stated Complaint: VOMITING Time Seen by Provider: 05/15/18 06:02 TRAVEL OUTSIDE OF THE [place] IN LAST 30 DAYS: No - HPI Notes: 58-year-old female presents to the emergency department complaining of a headache. He has a long history of cluster headaches. She sees Dr. Mccray neurology in [place]. She takes p.o. Demerol and Phenergan at home for this. He states for the last 2-1/2 days she has been unable to keep down her medication including the narcotics and she has been vomiting. She complains of her typical headache pain across her temples. She is sensitive to light positive nausea vomiting denies fever chills denies neck stiffness. Denies any history of trauma or falls rates pain as severe. Her normal routine does not work. She is come here to the ER for evaluation - Related Data Allergies/Adverse Reactions: buprenorphine [From Butrans] Allergy (Verified 05/14/18 13:15) Dyspnea butorphanol tartrate [From Stadol] Allergy (Verified 05/14/18 13:15) Seizures ketorolac tromethamine [From Toradol] Allergy (Verified 05/14/18 13:15) Seizures morphine [Morphine] Allergy (Verified 05/14/18 13:15) Swelling of Throat Penicillins Allergy (Verified 05/14/18 13:15) Generalized rash prochlorperazine edisylate [From Compazine] Allergy (Verified 05/14/18 13:15) prochlorperazine maleate [From Compazine] Allergy (Verified 05/14/18 13:15) aspirin [From Fiorinal-Codeine #3] Adverse Reaction (Verified 05/14/18 13:15) Delirium baclofen [Baclofen] Adverse Reaction (Verified 05/14/18 13:15) Hallucinations butalbital [From Fiorinal-Codeine #3] Adverse Reaction (Verified 05/14/18 13:15) Delirium caffeine [From Fiorinal-Codeine #3] Adverse Reaction (Verified 05/14/18 13:15) Delirium codeine phosphate [From Fiorinal-Codeine #3] Adverse Reaction (Verified 13:15) Delirium diphenhydramine HCl [From Benadryl] Adverse Reaction (Verified 05/14/18 13:15) gadobutrol [From Gadavist] Adverse Reaction (Verified 05/15/18 03:59) metoclopramide HCl [From Reglan] Adverse Reaction (Verified 05/14/18 13:15) tramadol [Tramadol] Adverse Reaction (Verified 05/14/18 13:15) Hallucinations Past Medical History - Social History Smoking Status: Never Smoker Family History: Reviewed & Not Pertinent Patient has suicidal ideation: No Patient has homicidal ideation: No - Past Medical History Cardiac Medical History: Denies: Hx Heart Attack, Hx Hypertension Pulmonary Medical History: Denies: Hx Asthma Neurological Medical History: Reports: Hx Migraine, Hx Seizures - DEVELOPED AFTER CRANI. Denies: Hx Cerebrovascular Accident Renal/ Medical History: Denies: Hx Peritoneal Dialysis GI Medical History: Reports: Hx Gastroesophageal Reflux Disease. Denies: Hx Hepatitis, Hx Hiatal Hernia, Hx Ulcer Infectious Medical History: Denies: Hx Hepatitis Past Surgical History: Reports: Hx Hysterectomy, Hx Neurologic Surgery. Denies : Hx Mastectomy, Hx Open Heart Surgery, Hx Pacemaker - Immunizations Immunizations up to date: Yes Hx Diphtheria, Pertussis, Tetanus Vaccination: Yes Review of Systems - Review of Systems Gastrointestinal: Nausea, Vomiting. denies: Diarrhea Neurological/Psychological: Headaches. denies: Sensory change, Seizure, Speech impairment, Numbness, Tingling -: Yes All other systems reviewed and negative Physical Exam - Vital signs Vitals: Temp Pulse Resp BP Pulse Ox 99.0 F 101 H 18 121/84 96 05/15/18 04:01 05/15/18 04:01 05/15/18 04:01 05/15/18 04:01 05/15/18 04:01 - Notes Notes: GENERAL_APPEARANCE: well_nourished, alert, cooperative, no_acute_distress, no_ obvious_discomfort. VITALS: reviewed, see vital signs table. HEAD: no_swelling\tenderness on the head. EYES: PERRL, EOMI, conjunctiva_clear. NOSE: no_nasal_discharge. MOUTH: (-)decreased moisture. THROAT: no_throat_inflammation, no_airway_obstruction. no_lymphadenopathy NECK: supple, no_neck_tenderness, (-)thyromegaly. BACK: no_back_tenderness. CHEST_WALL: no_chest_tenderness. LUNGS: no_wheezing, no_rales, no_rhonchi, (-)accessory muscle use, good air exchange bilateral. HEART: normal_rate, normal_rhythm, normal_S1, normal_S2, (-)S3, (-)S4, no_ murmur, no_rub. ABDOMEN: normal_BS, soft, no_abd_tenderness, (-)guarding, (-)rebound, no_ organomegaly, no_abd_masses. EXTREMITIES: strength 5/5 in all_extremities, good pulses in all_extremities, no_swelling\tenderness in the extremities, no_edema. SKIN: warm, dry, good_color, no_rash. MENTAL_STATUS: speech_clear, oriented_X_3, normal_affect, responds_ appropriately to questions. NEURO: Neg Motor or Sensory Deficits on exam, CN 2-12 intact, DTR 2+ symmetric x 4, No cerbellar signs Course - Re-evaluation Re-evalutation: 05/15/18 07:05 58-year-old female with a long established history of headaches presents to the ER complaining of a headache. Is no thunderclap no rapid onset. Not worse headache of life. The patient refuses an IV. She states she usually gets an IM shot of Dilaudid 2 mg and Phenergan. She states she has not had her Neurontin or Topamax the last couple days and it has made her very tremor early. However she does not want a IV or any had a lab workup. I looked back at her chart and does look like she is here frequently and this is the usual pattern for her. I did have a long conversation with her that narcotics are likely not the best thing for her headaches. She does see a neurologist who gives her p.o. Demerol for these. Again this is usually very atypical I will give her the injections but again cautioned her that she may be having rebound type headaches from the aquatics intolerance to opiates. - Vital Signs Vital signs: Temp Pulse Resp BP Pulse Ox 99.0 F 101 H 20 139/82 H 98 05/15/18 04:01 05/15/18 04:01 05/15/18 06:00 05/15/18 06:00 05/15/18 06:01 Discharge - Discharge Clinical Impression: Headache Qualifiers: Headache type: tension-type Headache chronicity pattern: acute headache Intractability: intractable Qualified Code(s): G44.201 - Tension-type headache, unspecified, intractable Condition: Good Disposition: HOME, SELF-CARE Instructions: Headache ([facility]) Referrals: ROMINA MENDOZA MD [Primary Care Provider] - Follow up as needed
[2018-05-15 08:13] VITALS: BP 119/80
== END 2018-05-15 08:00 | disposition home or self-care (01) ==
LOC: ER 03:34
DX: G44.201 Tension-type headache, unspecified, intractable (principal); G44.009 Cluster headache syndrome, unspecified, not intractable; Z79.891 Long term (current) use of opiate analgesic; Z79.899 Other long term (current) drug therapy; R11.2 Nausea with vomiting, unspecified; H53.149 Visual discomfort, unspecified; Z88.5 Allergy status to narcotic agent; Z88.8 Allergy status to other drugs, medicaments and biological substances; Z88.0 Allergy status to penicillin; Z88.6 Allergy status to analgesic agent
CPT/HCPCS: 99284; 96372; J1170; J2550

== ENCOUNTER 2018-05-22 02:08 | Emergency (ER) | payer OTHER ==
[2018-05-22] MEDS ORDERED: HYDROMORPHONE HCL INJ/PF 2 MG/ML AMPULE IM ONE (03:57)
[2018-05-22] MEDS ORDERED: PROMETHAZINE HCL INJ 25 MG/1 ML VIAL IM ONE (03:58)
--- NOTE | 2018-05-22 04:00 | ER Document Report ---
ED General - General Chief Complaint: Headache Stated Complaint: HEADACHE,NAUSEA Time Seen by Provider: 05/22/18 03:53 Notes: Patient is a 58-year-old female presents with complaint of severe headache. She has history of migraines. She comes to ER occasionally because of his headaches with her intractable. Headaches are always sensitive to light. Says this headache is exactly like her previous migraine headaches. She has some nausea so she with this as well. She is followed by [facility]. She has been evaluated several times in the past. She does say that she takes IM Dilaudid and IM Phenergan to relieve her headaches and this usually works well. I have reviewed her records I see where in the past she is actually brought a letter from her neurologist confirming that this is the regimen that is appropriate for her. She denies any recent fevers or infections. No other complaints at this time. No focal neurologic deficits. TRAVEL OUTSIDE OF THE [place] IN LAST 30 DAYS: No - Related Data Allergies/Adverse Reactions: buprenorphine [From Butrans] Allergy (Verified 05/14/18 13:15) Dyspnea butorphanol tartrate [From Stadol] Allergy (Verified 05/14/18 13:15) Seizures ketorolac tromethamine [From Toradol] Allergy (Verified 05/14/18 13:15) Seizures morphine [Morphine] Allergy (Verified 05/14/18 13:15) Swelling of Throat Penicillins Allergy (Verified 05/14/18 13:15) Generalized rash prochlorperazine edisylate [From Compazine] Allergy (Verified 05/14/18 13:15) prochlorperazine maleate [From Compazine] Allergy (Verified 05/14/18 13:15) aspirin [From Fiorinal-Codeine #3] Adverse Reaction (Verified 05/14/18 13:15) Delirium baclofen [Baclofen] Adverse Reaction (Verified 05/14/18 13:15) Hallucinations butalbital [From Fiorinal-Codeine #3] Adverse Reaction (Verified 05/14/18 13:15) Delirium caffeine [From Fiorinal-Codeine #3] Adverse Reaction (Verified 05/14/18 13:15) Delirium codeine phosphate [From Fiorinal-Codeine #3] Adverse Reaction (Verified 13:15) Delirium diphenhydramine HCl [From Benadryl] Adverse Reaction (Verified 05/14/18 13:15) gadobutrol [From Gadavist] Adverse Reaction (Verified 05/15/18 03:59) metoclopramide HCl [From Reglan] Adverse Reaction (Verified 05/14/18 13:15) tramadol [Tramadol] Adverse Reaction (Verified 05/14/18 13:15) Hallucinations Past Medical History - Social History Smoking Status: Current Every Day Smoker Frequency of alcohol use: None Drug Abuse: None Family History: Reviewed & Not Pertinent Patient has suicidal ideation: No Patient has homicidal ideation: No - Past Medical History Cardiac Medical History: Denies: Hx Heart Attack, Hx Hypertension Pulmonary Medical History: Denies: Hx Asthma Neurological Medical History: Reports: Hx Migraine, Hx Seizures - DEVELOPED AFTER CRANI. Denies: Hx Cerebrovascular Accident Renal/ Medical History: Denies: Hx Peritoneal Dialysis GI Medical History: Reports: Hx Gastroesophageal Reflux Disease. Denies: Hx Hepatitis, Hx Hiatal Hernia, Hx Ulcer Infectious Medical History: Denies: Hx Hepatitis Past Surgical History: Reports: Hx Hysterectomy, Hx Neurologic Surgery. Denies : Hx Mastectomy, Hx Open Heart Surgery, Hx Pacemaker - Immunizations Immunizations up to date: Yes Hx Diphtheria, Pertussis, Tetanus Vaccination: Yes Review of Systems - Review of Systems Notes: My Normal Review Basic REVIEW OF SYSTEMS: CONSTITUTIONAL : Denies fever, chills, or sweats. Denies recent illness. EENT: Denies eye, ear, throat, or mouth pain or symptoms. Denies nasal or sinus congestion. GASTROINTESTINAL: Denies abdominal pain. Some nausea. MUSCULOSKELETAL: Denies neck or back pain or joint pain or swelling. SKIN: Denies rash or skin lesions. NEUROLOGICAL: Denies altered mental status or loss of consciousness. Has a headache. Denies weakness or paralysis or loss of use of either side. Denies problems with gait or speech. Denies sensory or motor loss. ALL OTHER SYSTEMS REVIEWED AND NEGATIVE. Physical Exam - Notes Notes: General Appearance: Well nourished, alert, cooperative, no acute distress, moderate obvious discomfort. To phobia on exam Vitals: reviewed, See vital signs table. Head: no swelling or tenderness to the head Eyes: PERRL, EOMI, Conjuctiva clear Mouth: No decreasd moisture Neck: Supple, no neck tenderness, No thyromegaly Lungs: No wheezing, No rales, No rhonci, No accessory muscle use, good air exchange bilaterally. Heart: Normal rate, Regular rythm, No murmur, no rub Abdomen: Normal BS, soft, No rigidity, No abdominal tenderness, No guarding, no rebound, no abdominal masses, no organomegaly Extremities: strength 5/5 in all extremities, good pulses in all extremities, no swelling or tenderness in the extremities, no edema. Skin: warm, dry, appropriate color, no rash Neuro: speech clear, oriented x 3, normal affect, responds appropriately to questions. Cranial nerves II through XII are intact. Distal sensation intact. Patient moves all extremities without difficulty. Course - Re-evaluation Re-evalutation: 05/22/18 05:50 Patient's headache is gone and she feels well and looks well. Not suspect subarachnoid hemorrhage and that the headache is a close to her previous headaches and chronic migraines that she is followed by neurology for. I strongly encouraged her return to ER if she has severe worsening headache, weakness or numbness into extremities, or she feels unwell. Patient agrees with plan will be discharged home. at bedside during discussion and also agrees with plan. Dictation of this chart was performed using voice recognition software; therefore, there may be some unintended grammatical errors. Discharge - Discharge Referrals: ROMINA MENDOZA MD [Primary Care Provider] - Follow up as needed
[2018-05-22 06:27] VITALS: BP 119/71
== END 2018-05-22 06:27 | disposition home or self-care (01) ==
LOC: ER 02:08
DX: R51 Headache (principal); F17.200 Nicotine dependence, unspecified, uncomplicated; Z88.5 Allergy status to narcotic agent; Z88.0 Allergy status to penicillin; Z88.8 Allergy status to other drugs, medicaments and biological substances
CPT/HCPCS: 99284; 96372; J1170; J2550

== ENCOUNTER 2018-05-23 17:58 | Emergency (ER) | payer OTHER ==
[2018-05-23] MEDS ORDERED: PROMETHAZINE HCL INJ 25 MG/1 ML VIAL IM ONE (21:29)
[2018-05-23] MEDS ORDERED: HYDROMORPHONE HCL INJ/PF 2 MG/ML AMPULE IM ONE (21:29)
--- NOTE | 2018-05-23 21:31 | ER Document Report ---
ED Headache - General Chief Complaint: Headache Stated Complaint: HEADACHE,NAUSEA Mode of Arrival: Ambulatory Information source: Patient Notes: Patient is a 58-year-old female who presents with chief complaint of migraine. Patient has been seen here for the same complaint several times. Patient reports this is a usual migraine for her it started yesterday, had a gradual onset and is located on the left side of her head. Patient reports that she does have home medications to take however due to her nausea and vomiting she has been unable to keep them down. Patient and reports that she had a CAT scan done at last week and which was normal with no acute findings. TRAVEL OUTSIDE OF THE [place] IN LAST 30 DAYS: No - Related Data Allergies/Adverse Reactions: buprenorphine [From Butrans] Allergy (Verified 05/23/18 18:00) Dyspnea butorphanol tartrate [From Stadol] Allergy (Verified 05/23/18 18:00) Seizures ketorolac tromethamine [From Toradol] Allergy (Verified 05/23/18 18:00) Seizures morphine [Morphine] Allergy (Verified 05/23/18 18:00) Swelling of Throat Penicillins Allergy (Verified 05/23/18 18:00) Generalized rash prochlorperazine edisylate [From Compazine] Allergy (Verified 05/23/18 18:00) prochlorperazine maleate [From Compazine] Allergy (Verified 05/23/18 18:00) aspirin [From Fiorinal-Codeine #3] Adverse Reaction (Verified 05/23/18 18:00) Delirium baclofen [Baclofen] Adverse Reaction (Verified 05/23/18 18:00) Hallucinations butalbital [From Fiorinal-Codeine #3] Adverse Reaction (Verified 05/23/18 18:00) Delirium caffeine [From Fiorinal-Codeine #3] Adverse Reaction (Verified 05/23/18 18:00) Delirium codeine phosphate [From Fiorinal-Codeine #3] Adverse Reaction (Verified 18:00) Delirium diphenhydramine HCl [From Benadryl] Adverse Reaction (Verified 05/23/18 18:00) gadobutrol [From Gadavist] Adverse Reaction (Verified 05/23/18 18:00) metoclopramide HCl [From Reglan] Adverse Reaction (Verified 05/23/18 18:00) tramadol [Tramadol] Adverse Reaction (Verified 05/23/18 18:00) Hallucinations Past Medical History - General Information source: Patient - Social History Smoking Status: Never Smoker Frequency of alcohol use: None Drug Abuse: None Family History: Reviewed & Not Pertinent - Past Medical History Cardiac Medical History: Denies: Hx Heart Attack, Hx Hypertension Pulmonary Medical History: Denies: Hx Asthma Neurological Medical History: Reports: Hx Migraine, Hx Seizures - DEVELOPED AFTER CRANI. Denies: Hx Cerebrovascular Accident Renal/ Medical History: Denies: Hx Peritoneal Dialysis GI Medical History: Reports: Hx Gastroesophageal Reflux Disease. Denies: Hx Hepatitis, Hx Hiatal Hernia, Hx Ulcer Infectious Medical History: Denies: Hx Hepatitis Past Surgical History: Reports: Hx Hysterectomy, Hx Neurologic Surgery. Denies : Hx Mastectomy, Hx Open Heart Surgery, Hx Pacemaker - Immunizations Immunizations up to date: Yes Hx Diphtheria, Pertussis, Tetanus Vaccination: Yes Review of Systems - Review of Systems Constitutional: No symptoms reported EENT: No symptoms reported Cardiovascular: No symptoms reported Respiratory: No symptoms reported Gastrointestinal: No symptoms reported Genitourinary: No symptoms reported Female Genitourinary: No symptoms reported Musculoskeletal: No symptoms reported Skin: No symptoms reported Hematologic/Lymphatic: No symptoms reported Neurological/Psychological: See HPI Physical Exam - Vital signs Vitals: Temp Pulse Resp BP Pulse Ox 98.8 F 95 18 117/81 100 05/23/18 18:57 05/23/18 18:57 05/23/18 18:57 05/23/18 18:57 05/23/18 18:57 - Notes Notes: PHYSICAL EXAMINATION: GENERAL: Well-appearing, well-nourished and in no acute distress. HEAD: Atraumatic, normocephalic. EYES: Pupils equal round and reactive to light, extraocular movements intact, conjunctiva are normal. ENT: Nares patent, oropharynx clear without exudates. Moist mucous membranes. NECK: Normal range of motion, supple without lymphadenopathy LUNGS: Breath sounds clear to auscultation bilaterally and equal. No wheezes rales or rhonchi. HEART: Regular rate and rhythm without murmurs ABDOMEN: Soft, nontender, nondistended abdomen. No guarding, no rebound. No masses appreciated. Female : deferred Musculoskeletal: Normal range of motion, no pitting or edema. No cyanosis. NEUROLOGICAL: Cranial nerves grossly intact. Normal speech, normal gait. Normal sensory, motor exams PSYCH: Normal mood, normal affect. SKIN: Warm, Dry, normal turgor, no rashes or lesions noted. Course - Re-evaluation Re-evalutation: 05/23/18 21:31 Will order Dilaudid 2 mg IM as well as Phenergan 25 mg IM as this is what has worked for patient in the past. 05/23/18 22:29 Patient reports complete resolution of her migraine symptoms. Patient is ready for discharge and will go home and take her home medications as prescribed. - Vital Signs Vital signs: Temp Pulse Resp BP Pulse Ox 98.8 F 88 16 115/84 98 05/23/18 18:57 05/23/18 22:45 05/23/18 22:45 05/23/18 22:45 05/23/18 22:45 Discharge - Discharge Clinical Impression: Migraine Qualifiers: Migraine type: unspecified Status migrainosus presence: without status migrainosus Intractability: not intractable Qualified Code(s): G43.909 - Migraine, unspecified, not intractable, without status migrainosus Condition: Stable Disposition: HOME, SELF-CARE Additional Instructions: Migraine Headache The physician feels that your symptoms are due to a migraine attack. Migraines are caused by changes in the blood vessels of the head. Arteries go into spasm, often causing warning symptoms that a headache may begin soon. As the spasm goes away, the vessels dilate and throb, causing the pounding pain of a migraine headache. Migraines often cause nausea and vomiting. The treatment of headaches varies with severity and cause of pain. Not all headaches need pain shots -- in fact, there is evidence that using narcotics for headaches may make them worse in the long run. The physician will determine the therapy that's in your best interest for this particular headache. Medications are available that may prevent migraines, or stop them as they first occur. If one medication is not helpful, try another. If migraines are frequent, be patient -- follow the doctor's recommendations. Call the physician if you are worsening, or if new symptoms arise. Please follow-up with your primary care provider. Return to the emergency department for any worsening symptoms or concerns. Referrals: ROMINA MENDOZA MD [Primary Care Provider] - Follow up as needed
[2018-05-23 23:05] VITALS: BP 115/84
== END 2018-05-23 22:45 | disposition home or self-care (01) ==
LOC: ER 17:58
DX: G43.909 Migraine, unspecified, not intractable, without status migrainosus (principal); R11.0 Nausea; Z88.6 Allergy status to analgesic agent; Z88.0 Allergy status to penicillin; Z90.710 Acquired absence of both cervix and uterus
CPT/HCPCS: 99283; 96372; J1170; J2550

== ENCOUNTER 2018-08-07 18:01 | Emergency (ER) | payer OTHER ==
[2018-08-07] MEDS ORDERED: NORMAL SALINE 1000 ML 1,000 ML IV ONE (18:30)
[2018-08-07] MEDS ORDERED: PROMETHAZINE HCL INJ 25 MG/1 ML VIAL IM ONE (18:31)
[2018-08-07] MEDS ORDERED: HYDROMORPHONE HCL INJ/PF 2 MG/ML AMPULE IV ONE ×2 (18:31→19:05)
--- NOTE | 2018-08-07 18:32 | ER Document Report ---
ED General - General Chief Complaint: Headache >24 hrs old Stated Complaint: HEADACHE Time Seen by Provider: 08/07/18 18:20 Mode of Arrival: Ambulatory Information source: Patient Notes: This is a 58-year-old female with a history of migraine headaches, multiple sclerosis and seizures who presents to the emergency room with nausea, vomiting for several days and migraine headache. Patient states she normally gets IM Dilaudid and IM Phenergan because she is a difficult stick. She denies fever. She states his migraine headache is similar to previous headaches. TRAVEL OUTSIDE OF THE [place] IN LAST 30 DAYS: No - HPI Onset: Just prior to arrival Onset/Duration: Gradual Quality of pain: Dull Severity: Moderate Pain Level: 2 Associated symptoms: Headache, Nausea, Vomiting. denies: Chest pain, Shortness of breath Exacerbated by: Denies Relieved by: Denies Similar symptoms previously: Yes Recently seen / treated by doctor: Yes - Related Data Allergies/Adverse Reactions: buprenorphine [From Butrans] Allergy (Verified 05/23/18 18:00) Dyspnea butorphanol tartrate [From Stadol] Allergy (Verified 05/23/18 18:00) Seizures ketorolac tromethamine [From Toradol] Allergy (Verified 05/23/18 18:00) Seizures morphine [Morphine] Allergy (Verified 05/23/18 18:00) Swelling of Throat Penicillins Allergy (Verified 05/23/18 18:00) Generalized rash prochlorperazine edisylate [From Compazine] Allergy (Verified 05/23/18 18:00) prochlorperazine maleate [From Compazine] Allergy (Verified 05/23/18 18:00) aspirin [From Fiorinal-Codeine #3] Adverse Reaction (Verified 05/23/18 18:00) Delirium baclofen [Baclofen] Adverse Reaction (Verified 05/23/18 18:00) Hallucinations butalbital [From Fiorinal-Codeine #3] Adverse Reaction (Verified 05/23/18 18:00) Delirium caffeine [From Fiorinal-Codeine #3] Adverse Reaction (Verified 05/23/18 18:00) Delirium codeine phosphate [From Fiorinal-Codeine #3] Adverse Reaction (Verified 18:00) Delirium diphenhydramine HCl [From Benadryl] Adverse Reaction (Verified 05/23/18 18:00) gadobutrol [From Gadavist] Adverse Reaction (Verified 05/23/18 18:00) metoclopramide HCl [From Reglan] Adverse Reaction (Verified 05/23/18 18:00) tramadol [Tramadol] Adverse Reaction (Verified 05/23/18 18:00) Hallucinations Past Medical History - General Information source: Patient - Social History Smoking Status: Current Every Day Smoker Cigarette use (# per day): Yes - 1 pack/day Chew tobacco use (# tins/day): No Frequency of alcohol use: None Drug Abuse: None Lives with: Family Family History: Reviewed & Not Pertinent Patient has suicidal ideation: No Patient has homicidal ideation: No - Past Medical History Cardiac Medical History: Denies: Hx Heart Attack, Hx Hypertension Pulmonary Medical History: Denies: Hx Asthma Neurological Medical History: Reports: Hx Migraine, Hx Seizures - DEVELOPED AFTER CRANI. Denies: Hx Cerebrovascular Accident Renal/ Medical History: Denies: Hx Peritoneal Dialysis GI Medical History: Reports: Hx Gastroesophageal Reflux Disease. Denies: Hx Hepatitis, Hx Hiatal Hernia, Hx Ulcer Infectious Medical History: Denies: Hx Hepatitis Past Surgical History: Reports: Hx Hysterectomy, Hx Neurologic Surgery. Denies : Hx Mastectomy, Hx Open Heart Surgery, Hx Pacemaker - Immunizations Immunizations up to date: Yes Hx Diphtheria, Pertussis, Tetanus Vaccination: Yes Review of Systems - Review of Systems Constitutional: denies: Chills, Fever EENT: No symptoms reported Cardiovascular: No symptoms reported Respiratory: No symptoms reported Gastrointestinal: See HPI, Nausea, Vomiting Genitourinary: No symptoms reported Female Genitourinary: No symptoms reported Musculoskeletal: No symptoms reported Skin: No symptoms reported Hematologic/Lymphatic: No symptoms reported Neurological/Psychological: See HPI Physical Exam - Vital signs Vitals: Temp Pulse Resp BP Pulse Ox 99.5 F 67 18 124/73 99 08/07/18 18:09 08/07/18 18:09 08/07/18 18:09 08/07/18 18:09 08/07/18 18:09 Notes: Physical exam: GENERAL: Patient is alert and oriented x3, complaining of headache HEAD: Atraumatic, normocephalic. EYES: Pupils equal round and reactive to light, extraocular movements intact, sclera anicteric, conjunctiva are normal. ENT: TMs normal, nares patent, oropharynx clear without exudates. Moist mucous membranes. NECK: Normal range of motion, supple without obvious mass or JVD. LUNGS: Breath sounds clear to auscultation bilaterally and equal. No wheezes rales or rhonchi. HEART: Regular rate and rhythm without murmurs, rubs or gallops. ABDOMEN: Soft, normoactive bowel sounds. No tenderness to palpation. No guarding, no rebound. No masses appreciated. EXTREMITIES: Normal range of motion, no pitting or edema. No clubbing or cyanosis. NEUROLOGICAL: Cranial nerves II through XII grossly intact. Planing of headache. There is no photophobia or neck stiffness. Normal speech, moving all extremities. No focal weakness. PSYCH: Normal mood, normal affect. SKIN: Warm, Dry, normal turgor, no rashes or lesions noted. Course - Vital Signs Vital signs: Temp Pulse Resp BP Pulse Ox 99.5 F 67 18 124/73 99 08/07/18 18:09 08/07/18 18:09 08/07/18 18:09 08/07/18 18:09 08/07/18 18:09 - Laboratory Result Diagrams: 08/07/18 18:20 08/07/18 18:20 Laboratory results interpreted by me: 08/07/18 08/07/18 18:20 18:20 MCH 26.0 L MCHC 31.8 L RDW 19.9 H Sodium 146.2 H Carbon Dioxide 32 H BUN 26 H Calcium 10.8 H Discharge - Discharge Clinical Impression: Migraine headache, Vomiting with nausea, Dehydration Condition: Stable Disposition: HOME, SELF-CARE Additional Instructions: Recommendations: Drink plenty of fluids, advance diet as tolerated. Continue your current medicines. Follow-up with your primary care doctor: Bring a copy of today's labs with you when you see your primary care doctor. Return to the emergency room for worsening headache, nausea, vomiting or any concerns or getting worse.
[2018-08-07 18:35] LABS: ABSOLUTE LYMPHOCYTES (AUTO) 1.5 10^3/uL (0.5-4.7); ABSOLUTE MONOCYTES (AUTO) 0.5 10^3/uL (0.1-1.4); ABSOLUTE NEUT (AUTO) 5.2 10^3/uL (1.7-8.2); BASOPHILS % (AUTO) 0.4 % (0-2); EOSINOPHILS % (AUTO) 0.5 % (0-6); HEMATOCRIT 38.4 % (36.0-47.0); HEMOGLOBIN 12.2 g/dL (12.0-15.5); LYMPHOCYTES % (AUTO) 20.8 % (13-45); MEAN CORPUSCULAR HGB CONC 31.8 g/dL (32.0-36.0); MEAN CORPUSCULAR VOLUME 82 fl (80-97); MONOCYTES % (AUTO) 7.1 % (3-13); PLATELET COUNT 445 10^3/uL (150-450); RED BLOOD COUNT 4.71 10^6/uL (3.72-5.28); RED CELL DISTRIBUTION WIDTH 19.9 % (11.5-14.0); SEGMENTED NEUTROPHILS % (AUTO) 71.2 % (42-78); TOTAL CELLS COUNTED % (AUTO) 100 %; WHITE BLOOD COUNT 7.3 10^3/uL (4.0-10.5)
[2018-08-07 18:56] LABS: ALANINE AMINOTRANSFERASE 12 U/L (9-52); ALBUMIN 4.5 g/dL (3.5-5.0); ALKALINE PHOSPHATASE 88 U/L (38-126); ANION GAP 15 (5-19); ASPARTATE AMINO TRANSFERASE 16 U/L (14-36); BILIRUBIN,DIRECT 0.2 mg/dL (0.0-0.4); BILIRUBIN,TOTAL 0.5 mg/dL (0.2-1.3); BLOOD UREA NITROGEN 26 mg/dL (7-20); CALCIUM 10.8 mg/dL (8.4-10.2); CARBON DIOXIDE 32 mmol/L (22-30); CHLORIDE 99 mmol/L (98-107); GLUCOSE 93 mg/dL (75-110); POTASSIUM 3.8 mmol/L (3.6-5.0); SODIUM 146.2 mmol/L (137-145); TOTAL PROTEIN 7.5 g/dL (6.3-8.2)
[2018-08-08 00:59] VITALS: BP 116/89
== END 2018-08-07 21:32 | disposition home or self-care (01) ==
LOC: ER 18:01
DX: G43.909 Migraine, unspecified, not intractable, without status migrainosus (principal); R11.2 Nausea with vomiting, unspecified; E86.0 Dehydration; G35 Multiple sclerosis; I10 Essential (primary) hypertension; F17.210 Nicotine dependence, cigarettes, uncomplicated
CPT/HCPCS: 96376; 99283; 96372; 96361; 96374; 36415; 85025; 80053; J1170; J2550; J7030

== ENCOUNTER 2018-08-08 14:30 | Emergency (ER) | payer OTHER ==
[2018-08-08] MEDS ORDERED: NORMAL SALINE 1000 ML 1,000 ML IV ONE (17:00)
[2018-08-08] MEDS ORDERED: PROMETHAZINE HCL INJ 25 MG/1 ML VIAL IM ONE (17:15)
[2018-08-08] MEDS ORDERED: HYDROMORPHONE HCL INJ/PF 2 MG/ML AMPULE IM ONE ×2 (17:15→18:06)
--- NOTE | 2018-08-08 17:20 | ER Document Report ---
ED Headache - General Chief Complaint: Headache Stated Complaint: HEADACHE,NAUSEA,VOMITING Time Seen by Provider: 08/08/18 16:48 TRAVEL OUTSIDE OF THE [place] IN LAST 30 DAYS: No - HPI Notes: Patient is a 58-year-old female that presents to the emergency department for chief complaint of headache. Patient has history of migraine headaches. She states they usually occur in clusters. She had a headache yesterday and was seen in the emergency room. She states she had resolution of that migraine and this migraine started today. She states it is typical for her chronic migraines. She has associated photophobia and phonophobia. She reports nausea with emesis and has been unable to take her home Phenergan and meperidine. She states she is currently in transition of neurologist at [facility] neurology but migraines. She denies is planning to follow with them soon. She denies any change in this headache compared to prior migraines. She states it was gradual in onset and throbbing in nature. Past Medical History: Migraine headaches, MS, seizures Past Surgical History: Reviewed in chart Social History: Denies drugs alcohol and tobacco Family History: Reviewed and noncontributory for presenting illness Allergies: Reviewed, see documented allergy list. REVIEW OF SYSTEMS: CONSTITUTIONAL : No fever No chills No diaphoresis No recent illness EENT: No vision changes No congestion No sore throat CARDIOVASCULAR: No chest pain No palpitations RESPIRATORY: No shortness of breath No cough No difficulty breathing GASTROINTESTINAL: No abdominal pain nausea vomiting No diarrhea GENITOURINARY: No dysuria No hematuria No difficulty urinating MUSCULOSKELETAL: No back pain No leg pain No arm pain SKIN: No rashes No lesions LYMPHATIC: No swollen, enlarged glands. NEUROLOGICAL: No lightheadedness headache No weakness No paresthesias PSYCHIATRIC: No anxiety No depression PHYSICAL EXAMINATION: Vital signs reviewed, nursing noted reviewed. GENERAL: Well-appearing, well-nourished and in no acute distress. HEAD: Atraumatic, normocephalic. EYES: Eyes appear normal, extraocular movements intact, sclera anicteric, conjunctiva are normal. ENT: nares patent, oropharynx clear without exudates. Moist mucous membranes. NECK: Normal range of motion, supple without lymphadenopathy LUNGS: Breath sounds clear to auscultation bilaterally and equal. No wheezes rales or rhonchi. HEART: Regular rate and rhythm without murmurs ABDOMEN: Soft, nontender, normoactive bowel sounds. No rebound, guarding, or rigidity. No masses appreciated. EXTREMITIES: Nontender, good range of motion, no pitting or edema. NEUROLOGICAL: No focal neurological deficits. Moves all extremities spontaneously Motor and sensory grossly intact on exam. PSYCH: Normal mood, normal affect. SKIN: Warm, Dry, normal turgor, no rashes or lesions noted on exposed skin - Related Data Allergies/Adverse Reactions: buprenorphine [From Butrans] Allergy (Verified 05/23/18 18:00) Dyspnea butorphanol tartrate [From Stadol] Allergy (Verified 05/23/18 18:00) Seizures ketorolac tromethamine [From Toradol] Allergy (Verified 05/23/18 18:00) Seizures morphine [Morphine] Allergy (Verified 05/23/18 18:00) Swelling of Throat Penicillins Allergy (Verified 05/23/18 18:00) Generalized rash prochlorperazine edisylate [From Compazine] Allergy (Verified 05/23/18 18:00) prochlorperazine maleate [From Compazine] Allergy (Verified 05/23/18 18:00) aspirin [From Fiorinal-Codeine #3] Adverse Reaction (Verified 05/23/18 18:00) Delirium baclofen [Baclofen] Adverse Reaction (Verified 05/23/18 18:00) Hallucinations butalbital [From Fiorinal-Codeine #3] Adverse Reaction (Verified 05/23/18 18:00) Delirium caffeine [From Fiorinal-Codeine #3] Adverse Reaction (Verified 05/23/18 18:00) Delirium codeine phosphate [From Fiorinal-Codeine #3] Adverse Reaction (Verified 18:00) Delirium diphenhydramine HCl [From Benadryl] Adverse Reaction (Verified 05/23/18 18:00) gadobutrol [From Gadavist] Adverse Reaction (Verified 05/23/18 18:00) metoclopramide HCl [From Reglan] Adverse Reaction (Verified 05/23/18 18:00) tramadol [Tramadol] Adverse Reaction (Verified 05/23/18 18:00) Hallucinations Past Medical History - Social History Smoking Status: Current Every Day Smoker Frequency of alcohol use: None Drug Abuse: None Family History: Reviewed & Not Pertinent Patient has suicidal ideation: No Patient has homicidal ideation: No - Past Medical History Cardiac Medical History: Denies: Hx Heart Attack, Hx Hypertension Pulmonary Medical History: Denies: Hx Asthma Neurological Medical History: Reports: Hx Migraine, Hx Seizures - DEVELOPED AFTER CRANI. Denies: Hx Cerebrovascular Accident Renal/ Medical History: Denies: Hx Peritoneal Dialysis GI Medical History: Reports: Hx Gastroesophageal Reflux Disease. Denies: Hx Hepatitis, Hx Hiatal Hernia, Hx Ulcer Infectious Medical History: Denies: Hx Hepatitis Past Surgical History: Reports: Hx Appendectomy, Hx Hysterectomy, Hx Neurologic Surgery - craniotomy AVM excision, Hx Orthopedic Surgery - b/l feet. Denies: Hx Mastectomy, Hx Open Heart Surgery, Hx Pacemaker - Immunizations Immunizations up to date: Yes Hx Diphtheria, Pertussis, Tetanus Vaccination: Yes Review of Systems - Review of Systems Notes: Dictated Physical Exam - Vital signs Vitals: Temp Pulse Resp BP Pulse Ox 98.9 F 95 18 113/69 97 08/08/18 14:42 08/08/18 14:42 08/08/18 14:42 08/08/18 14:42 08/08/18 14:42 - Notes Notes: Dictated Course - Re-evaluation Re-evalutation: 08/08/18 17:18 Vitals reviewed. Nursing notes reviewed. Patient afebrile and nontoxic. She does not appear to be in acute severe distress. I do not suspect subarachnoid hemorrhage as this headache is chronic in nature for her and the same as prior migraines. She will be given Dilaudid and Phenergan for symptomatic treatment. She will continue taking her home medications as previously prescribed. She will return for any new or worsening symptoms including vision changes numbness and weakness. Patient will follow with [facility] neurology for further management. She is in agreement with this plan. She is stable at discharge. - Vital Signs Vital signs: Temp Pulse Resp BP Pulse Ox 98.9 F 95 18 113/69 97 08/08/18 14:42 08/08/18 14:42 08/08/18 14:42 08/08/18 14:42 08/08/18 14:42 Discharge - Discharge Clinical Impression: Headache Qualifiers: Headache type: unspecified Headache chronicity pattern: unspecified pattern Intractability: not intractable Qualified Code(s): R51 - Headache Condition: Stable Disposition: HOME, SELF-CARE Instructions: Headache (OM) Additional Instructions: Please return to the emergency department if you have any worsening, or concern of your symptoms. Please return to the emergency department if you develop chest pain, difficulty breathing, severe abdominal pain, or ongoing vomiting. Please follow-up with your primary care physician in 2-3 days and any other recommended physicians. If prescribed, take all medications as directed. If you have any questions or concerns do not hesitate to return the emergency department for evaluation. Please follow with a neurologist at [facility] neurology for further management of your recurrent migraine headaches
[2018-08-08 18:20] VITALS: BP 129/70
== END 2018-08-08 18:27 | disposition home or self-care (01) ==
LOC: ER 14:30
DX: R51 Headache (principal); R11.2 Nausea with vomiting, unspecified; I05.0 Rheumatic mitral stenosis; Z88.8 Allergy status to other drugs, medicaments and biological substances; Z88.0 Allergy status to penicillin; F17.200 Nicotine dependence, unspecified, uncomplicated; Z90.710 Acquired absence of both cervix and uterus
CPT/HCPCS: 99283; 96372; J1170; J2550

== ENCOUNTER 2018-10-08 10:52 | Emergency (ER) | payer OTHER ==
[2018-10-08] MEDS ORDERED: HYDROMORPHONE HCL INJ/PF 2 MG/ML AMPULE IM ONE (11:08)
[2018-10-08] MEDS ORDERED: PROMETHAZINE HCL INJ 25 MG/1 ML VIAL IM ONE (11:08)
--- NOTE | 2018-10-08 11:10 | ER Document Report ---
ED Medical Screen (RME) - General Chief Complaint: Headache Stated Complaint: NAUSEA, VOMITING. MIGRAINE Time Seen by Provider: 10/08/18 11:07 Mode of Arrival: Ambulatory Information source: Patient, Relative TRAVEL OUTSIDE OF THE [place] IN LAST 30 DAYS: No - HPI Patient complains to provider of: Headache Onset: Other - This 4-year-old woman with a history of multiple sclerosis as well as previous craniotomy for brain surgery for which thereafter she has been on chronic pain management for recurrent migraines with abortive therapy as well as maintenance therapy at home the presents for evaluation of a migraine today which was refractory to her usual home medications. Says that she woke up nauseous with a persistent headache early this morning. Thereafter she began to vomit. With the vomit she was unable to tolerate her oral Dilaudid p.o. She denies fevers or chills recent illnesses or other symptoms. She is been having occasional headaches over the last few days which is stereotypical of her "cluster migraines". In the past she is responded well to intramuscular injections. - Related Data Allergies/Adverse Reactions: buprenorphine [From Butrans] Allergy (Verified 10/08/18 10:53) Dyspnea butorphanol tartrate [From Stadol] Allergy (Verified 10/08/18 10:53) Seizures ketorolac tromethamine [From Toradol] Allergy (Verified 10/08/18 10:53) Seizures morphine [Morphine] Allergy (Verified 10/08/18 10:53) Swelling of Throat Penicillins Allergy (Verified 10/08/18 10:53) Generalized rash prochlorperazine edisylate [From Compazine] Allergy (Verified 10/08/18 10:53) prochlorperazine maleate [From Compazine] Allergy (Verified 10/08/18 10:53) aspirin [From Fiorinal-Codeine #3] Adverse Reaction (Verified 10/08/18 10:53) Delirium baclofen [Baclofen] Adverse Reaction (Verified 10/08/18 10:53) Hallucinations butalbital [From Fiorinal-Codeine #3] Adverse Reaction (Verified 10/08/18 10:53) Delirium caffeine [From Fiorinal-Codeine #3] Adverse Reaction (Verified 05/23/18 18:00) Delirium codeine phosphate [From Fiorinal-Codeine #3] Adverse Reaction (Verified 05/23/18 18:00) Delirium diphenhydramine HCl [From Benadryl] Adverse Reaction (Verified 05/23/18 18:00) gadobutrol [From Gadavist] Adverse Reaction (Verified 05/23/18 18:00) metoclopramide HCl [From Reglan] Adverse Reaction (Verified 05/23/18 18:00) tramadol [Tramadol] Adverse Reaction (Verified 05/23/18 18:00) Hallucinations Past Medical History - General Information source: Patient, Relative - Social History Cigarette use (# per day): Yes Frequency of alcohol use: None Drug Abuse: None Family history: Reviewed & Not Pertinent - Past Medical History Cardiac Medical History: Denies: Hx Heart Attack, Hx Hypertension Pulmonary Medical History: Denies: Hx Asthma Neurological Medical History: Reports: Hx Migraine, Hx Seizures - DEVELOPED AFTER CRANI. Denies: Hx Cerebrovascular Accident Renal/ Medical History: Denies: Hx Peritoneal Dialysis GI Medical History: Reports: Hx Gastroesophageal Reflux Disease. Denies: Hx Hepatitis, Hx Hiatal Hernia, Hx Ulcer Infectious Medical History: Denies: Hx Hepatitis Past Surgical History: Reports: Hx Appendectomy, Hx Hysterectomy, Hx Neurologic Surgery - craniotomy AVM excision, Hx Orthopedic Surgery - b/l feet. Denies: Hx Mastectomy, Hx Open Heart Surgery, Hx Pacemaker - Immunizations Immunizations up to date: Yes Hx Diphtheria, Pertussis, Tetanus Vaccination: Yes Review of Systems - Review of Systems -: Yes All other systems reviewed and negative Physical Exam - Vital signs Vitals: Temp Pulse Resp BP Pulse Ox 98.6 F 105 H 16 140/75 H 100 10/08/18 10:56 10/08/18 10:56 10/08/18 10:56 10/08/18 10:56 10/08/18 10:56 Interpretation: Normal - General General appearance: Appears well, Alert - HEENT Head: Normocephalic, Atraumatic Eyes: Normal Pupils: PERRL - Respiratory Respiratory status: No respiratory distress Chest status: Nontender Breath sounds: Normal Chest palpation: Normal - Cardiovascular Rhythm: Regular Heart sounds: Normal auscultation Murmur: No - Abdominal Inspection: Normal Distension: No distension Bowel sounds: Normal Tenderness: Nontender Organomegaly: No organomegaly - Back Back: Normal, Nontender - Extremities General upper extremity: Normal inspection, Nontender, Normal color, Normal ROM, Normal temperature General lower extremity: Normal inspection, Nontender, Normal color, Normal ROM, Normal temperature, Normal weight bearing. No: Alma Delia's sign - Neurological Neuro grossly intact: Yes Cognition: Normal Orientation: AAOx4 [place] Coma Scale Eye Opening: Spontaneous [place] Coma Scale Verbal: Oriented [place] Coma Scale Motor: Obeys Commands [place] Coma Scale Total: 15 Speech: Normal Motor strength normal: LUE, RUE, LLE, RLE Sensory: Normal - Psychological Associated symptoms: Normal affect, Normal mood - Skin Skin Temperature: Warm Skin Moisture: Dry Skin Color: Normal Course - Re-evaluation Re-evalutation: 4-year-old female with multiple sclerosis as well as a myriad of other medical problems who presents for evaluation of a stereotypical migraine. She notes that she woke up this morning with vomiting and was unable to hold down anything. In the past she has had migraines like this which responded well to IM injections. At home she is on Phenergan chronically as well as Dilaudid for chronic pain. She is neurologically intact at this time. She has been evaluated in the past for similar issues, she is generally responded well to Dilaudid intramuscularly as well as Phenergan. We will plan for administration thereof. We will plan for reassessment following medication. 10/08/18 12:13 Following the administration of IM Dilaudid is well as Phenergan this patient was able to tolerate p.o. in the emergency department, she remained neurologically intact throughout, she said her symptoms were improved. Her abdominal examination was benign I do not believe this represents more serious underlying cause of her headache such as but not limited to meningitis, pneumonia, stroke. She will be discharged home with return precautions. - Vital Signs Vital signs: Temp Pulse Resp BP Pulse Ox 98.6 F 105 H 16 140/75 H 100 10/08/18 10:56 10/08/18 10:56 10/08/18 10:56 10/08/18 10:56 10/08/18 10:56 Doctor's Discharge - Discharge Clinical Impression: Nausea Migraine Qualifiers: Migraine type: unspecified Status migrainosus presence: without status migrainosus Intractability: not intractable Qualified Code(s): G43.909 - Migraine, unspecified, not intractable, without status migrainosus Vomiting Qualifiers: Vomiting type: unspecified Vomiting Intractability: unspecified Nausea presence: unspecified Qualified Code(s): R11.10 - Vomiting, unspecified Condition: Good Disposition: HOME, SELF-CARE Instructions: Oral Narcotic Medication ([facility]) Additional Instructions: Your seen today in the emergency department for your migraine. He had evaluation including a physical exam as well as administration of medications. The medications given to your strong pain killers. Use your home medications as needed now to help with your migraine. Return for worsening fevers or chills numbness or weakness or inability to eat or drink.
[2018-10-08 12:18] VITALS: BP 127/72
== END 2018-10-08 12:45 | disposition home or self-care (01) ==
LOC: ER 10:52
DX: G43.909 Migraine, unspecified, not intractable, without status migrainosus (principal); R11.2 Nausea with vomiting, unspecified
CPT/HCPCS: 99283; 96372; J1170; J2550

== ENCOUNTER 2018-11-05 01:43 | Emergency (ER) | payer OTHER ==
[2018-11-05 01:53] VITALS: BP 138/79
--- NOTE | 2018-11-05 02:46 | ER Document Report ---
ED Headache - General Chief Complaint: Headache Stated Complaint: HEADACHE Time Seen by Provider: 11/05/18 02:44 Mode of Arrival: Ambulatory Information source: Patient, Relative Notes: Patient is a 58-year-old female with a previous history of multiple sclerosis and chronic migraines who presents with recurrent migraine headache. Patient reports headache began abruptly last night, she reports taking her home oral Dilaudid as well as Phenergan but was unable to hold these down. She denies fevers or chills, no confusion, no vision changes. She does report that bright lights and loud noises makes her symptoms worse. TRAVEL OUTSIDE OF THE [place] IN LAST 30 DAYS: No - HPI Patient complains to provider of: Headache, "Migraine" Patient reports: Hx chronic headaches, Occasional migraines Onset: This evening Onset was: Abrupt Timing: Still present Quality of pain: Pressure, Throbbing Severity: Moderate Pain Level: 3 Associated symptoms: Nausea/vomiting, Photophobia. denies: Confusion, Double/blurred vision, Fever, Stiff neck Exacerbated by: Light, Noise Similar symptoms previously: Yes Recently seen / treated by doctor: Yes - Related Data Allergies/Adverse Reactions: buprenorphine [From Butrans] Allergy (Verified 10/08/18 10:53) Dyspnea butorphanol tartrate [From Stadol] Allergy (Verified 10/08/18 10:53) Seizures ketorolac tromethamine [From Toradol] Allergy (Verified 10/08/18 10:53) Seizures morphine [Morphine] Allergy (Verified 10/08/18 10:53) Swelling of Throat Penicillins Allergy (Verified 10/08/18 10:53) Generalized rash prochlorperazine edisylate [From Compazine] Allergy (Verified 10/08/18 10:53) prochlorperazine maleate [From Compazine] Allergy (Verified 10/08/18 10:53) aspirin [From Fiorinal-Codeine #3] Adverse Reaction (Verified 10/08/18 10:53) Delirium baclofen [Baclofen] Adverse Reaction (Verified 10/08/18 10:53) Hallucinations butalbital [From Fiorinal-Codeine #3] Adverse Reaction (Verified 10/08/18 10:53) Delirium caffeine [From Fiorinal-Codeine #3] Adverse Reaction (Verified 05/23/18 18:00) Delirium codeine phosphate [From Fiorinal-Codeine #3] Adverse Reaction (Verified 05/23/18 18:00) Delirium diphenhydramine HCl [From Benadryl] Adverse Reaction (Verified 05/23/18 18:00) gadobutrol [From Gadavist] Adverse Reaction (Verified 05/23/18 18:00) metoclopramide HCl [From Reglan] Adverse Reaction (Verified 05/23/18 18:00) tramadol [Tramadol] Adverse Reaction (Verified 05/23/18 18:00) Hallucinations Past Medical History - General Information source: Patient, Relative - Social History Smoking Status: Never Smoker Chew tobacco use (# tins/day): No Frequency of alcohol use: None Drug Abuse: None Lives with: Family Family History: Reviewed & Not Pertinent Patient has suicidal ideation: No Patient has homicidal ideation: No - Past Medical History Cardiac Medical History: Reports: None Denies: Hx Heart Attack, Hx Hypertension Pulmonary Medical History: Reports: None Denies: Hx Asthma EENT Medical History: Reports: None Neurological Medical History: Reports: Hx Migraine, Hx Seizures - DEVELOPED AFTER CRANI. Denies: Hx Cerebrovascular Accident Endocrine Medical History: Reports: None Renal/ Medical History: Reports: None. Denies: Hx Peritoneal Dialysis Malignancy Medical History: Reports: None GI Medical History: Reports: None, Hx Gastroesophageal Reflux Disease. Denies: Hx Hepatitis, Hx Hiatal Hernia, Hx Ulcer Musculoskeletal Medical History: Reports None Skin Medical History: Reports None Psychiatric Medical History: Reports: None Traumatic Medical History: Reports: None Infectious Medical History: Reports: None. Denies: Hx Hepatitis Past Surgical History: Reports: Hx Appendectomy, Hx Hysterectomy, Hx Neurologic Surgery - craniotomy AVM excision, Hx Orthopedic Surgery - b/l feet. Denies: Hx Mastectomy, Hx Open Heart Surgery, Hx Pacemaker - Immunizations Immunizations up to date: Yes Hx Diphtheria, Pertussis, Tetanus Vaccination: Yes Review of Systems - Review of Systems Constitutional: No symptoms reported EENT: No symptoms reported Cardiovascular: No symptoms reported Respiratory: No symptoms reported Gastrointestinal: See HPI, Nausea, Vomiting Genitourinary: No symptoms reported Female Genitourinary: No symptoms reported Musculoskeletal: No symptoms reported Skin: No symptoms reported Hematologic/Lymphatic: No symptoms reported Neurological/Psychological: See HPI, Headaches -: Yes All other systems reviewed and negative Physical Exam - Vital signs Vitals: Temp Pulse Resp BP Pulse Ox 98.3 F 74 18 138/79 H 96 11/05/18 01:49 11/05/18 01:49 11/05/18 01:49 11/05/18 01:49 11/05/18 01:49 Interpretation: Normal - Notes Notes: Well-appearing in no acute distress - General General appearance: Appears well, Alert - HEENT Head: Normocephalic, Atraumatic Eyes: Normal Pupils: PERRL - Respiratory Respiratory status: No respiratory distress Chest status: Nontender Breath sounds: Normal Chest palpation: Normal - Cardiovascular Rhythm: Regular Heart sounds: Normal auscultation Murmur: No - Abdominal Inspection: Normal Distension: No distension Bowel sounds: Normal Tenderness: Nontender Organomegaly: No organomegaly - Rectal Notes: Deferred - Genitourinary Notes: Deferred - Back Back: Normal, Nontender - Extremities General upper extremity: Normal inspection, Nontender, Normal color, Normal ROM, Normal temperature General lower extremity: Normal inspection, Nontender, Normal color, Normal ROM, Normal temperature, Normal weight bearing. No: Alma Delia's sign - Neurological Neuro grossly intact: Yes Cognition: Normal Orientation: AAOx4 [place] Coma Scale Eye Opening: Spontaneous [place] Coma Scale Verbal: Oriented [place] Coma Scale Motor: Obeys Commands [place] Coma Scale Total: 15 Speech: Normal Motor strength normal: LUE, RUE, LLE, RLE Sensory: Normal - Psychological Associated symptoms: Normal affect, Normal mood - Skin Skin Temperature: Warm Skin Moisture: Dry Skin Color: Normal Course - Re-evaluation Re-evalutation: 11/05/18 03:51 Patient is clearly nontoxic-appearing, makes good eye contact and smiles during the encounter. Most likely acute on chronic headache/migraine. She will be given intramuscular Phenergan as well as subcutaneous Imitrex and will be reassessed. 11/05/18 04:39 Patient has refused both the Phenergan and Imitrex stating that these "do not help my pain, only Dilaudid does." I informed the patient that my practice does not include narcotics for headaches, the patient voiced understanding this and was upset that she would not receive narcotics. I informed the patient that I would still give her nausea medication so that she could hold down her home medications that she did not bring with her and she declined this again. Patient will be discharged home with return precautions and follow-up as needed. - Vital Signs Vital signs: Temp Pulse Resp BP Pulse Ox 98.3 F 74 18 138/79 H 96 11/05/18 01:49 11/05/18 01:49 11/05/18 01:49 11/05/18 01:49 11/05/18 01:49 Discharge - Discharge Clinical Impression: Chronic migraine Condition: Good Disposition: HOME, SELF-CARE Instructions: Headache ([facility]) Additional Instructions: Please follow-up with your primary physician or your neurologist as necessary. Return to the emergency department if you experience confusion, vision changes, weakness, or have any other concerning symptom. Print Language: Kazakh
[2018-11-05] MEDS ORDERED: SUMATRIPTAN SUCCINATE INJ/PF 6 MG/0.5 ML SDV SUBCUT ONE (03:00)
[2018-11-05] MEDS ORDERED: PROMETHAZINE HCL INJ 50 MG/1 ML VIAL IM ONE (03:02)
[2018-11-05] MEDS ORDERED: PROMETHAZINE HCL INJ 25 MG/1 ML VIAL ONE (03:33)
== END 2018-11-05 05:07 | disposition home or self-care (01) ==
LOC: ER 01:43
DX: G43.909 Migraine, unspecified, not intractable, without status migrainosus (principal); R11.2 Nausea with vomiting, unspecified; H53.149 Visual discomfort, unspecified; Z88.6 Allergy status to analgesic agent; Z88.0 Allergy status to penicillin; Z90.710 Acquired absence of both cervix and uterus
CPT/HCPCS: 99283

== ENCOUNTER 2018-11-05 20:12 | Emergency (ER) | payer OTHER ==
[2018-11-05 21:32] VITALS: BP 112/71
--- NOTE | 2018-11-05 23:07 | ER Document Report ---
ED Headache - General Chief Complaint: Headache Stated Complaint: MIGRAINE/NAUSEA Time Seen by Provider: 11/05/18 23:06 Mode of Arrival: Ambulatory Information source: Patient, Relative Notes: Patient is a 58-year-old female with a history of multiple sclerosis as well as chronic and recurrent migraine headaches who presents for a second visit in 2 days with recurrence of her chronic migraine. Patient was evaluated 1 day ago by myself and requested Dilaudid for headache, when being informed she would not receive Dilaudid she decided to leave. Again today the patient requests both intramuscular Dilaudid and Phenergan. Patient states the headache has been unchanged, denies vision changes, no confusion or disorientation, no fevers or chills, no head injuries to her knowledge. Patient states that she has vomited multiple times but when asked could not quantify how many. TRAVEL OUTSIDE OF THE [place] IN LAST 30 DAYS: No - HPI Patient complains to provider of: Headache, "Migraine" Patient reports: Frequent migraines, Hx chronic headaches Onset: Yesterday Onset was: Abrupt Timing: Worse Quality of pain: Achy, Throbbing Severity: Severe Pain Level: 5 Preceding symptoms: denies: Typical of prior aura(s), Visual disturbance Associated symptoms: Nausea/vomiting Exacerbated by: Light, Noise Similar symptoms previously: Yes Recently seen / treated by doctor: Yes - Related Data Allergies/Adverse Reactions: buprenorphine [From Butrans] Allergy (Verified 10/08/18 10:53) Dyspnea butorphanol tartrate [From Stadol] Allergy (Verified 10/08/18 10:53) Seizures ketorolac tromethamine [From Toradol] Allergy (Verified 10/08/18 10:53) Seizures morphine [Morphine] Allergy (Verified 10/08/18 10:53) Swelling of Throat Penicillins Allergy (Verified 10/08/18 10:53) Generalized rash prochlorperazine edisylate [From Compazine] Allergy (Verified 10/08/18 10:53) prochlorperazine maleate [From Compazine] Allergy (Verified 10/08/18 10:53) aspirin [From Fiorinal-Codeine #3] Adverse Reaction (Verified 10/08/18 10:53) Delirium baclofen [Baclofen] Adverse Reaction (Verified 10/08/18 10:53) Hallucinations butalbital [From Fiorinal-Codeine #3] Adverse Reaction (Verified 10/08/18 10:53) Delirium caffeine [From Fiorinal-Codeine #3] Adverse Reaction (Verified 05/23/18 18:00) Delirium codeine phosphate [From Fiorinal-Codeine #3] Adverse Reaction (Verified 05/23/18 18:00) Delirium diphenhydramine HCl [From Benadryl] Adverse Reaction (Verified 05/23/18 18:00) gadobutrol [From Gadavist] Adverse Reaction (Verified 05/23/18 18:00) metoclopramide HCl [From Reglan] Adverse Reaction (Verified 05/23/18 18:00) tramadol [Tramadol] Adverse Reaction (Verified 05/23/18 18:00) Hallucinations Past Medical History - General Information source: Patient, Relative - Social History Smoking Status: Current Every Day Smoker Chew tobacco use (# tins/day): No Frequency of alcohol use: None Drug Abuse: None Lives with: Family Family History: Reviewed & Not Pertinent Patient has suicidal ideation: No Patient has homicidal ideation: No - Past Medical History Cardiac Medical History: Reports: None Denies: Hx Heart Attack, Hx Hypertension Pulmonary Medical History: Reports: None Denies: Hx Asthma EENT Medical History: Reports: None Neurological Medical History: Reports: Hx Migraine, Hx Seizures - DEVELOPED AFTER CRANI. Denies: Hx Cerebrovascular Accident Endocrine Medical History: Reports: None Renal/ Medical History: Reports: None. Denies: Hx Peritoneal Dialysis Malignancy Medical History: Reports: None GI Medical History: Reports: Hx Gastroesophageal Reflux Disease. Denies: Hx Hepatitis, Hx Hiatal Hernia, Hx Ulcer Musculoskeletal Medical History: Reports None Skin Medical History: Reports None Psychiatric Medical History: Reports: None Traumatic Medical History: Reports: None Infectious Medical History: Reports: None. Denies: Hx Hepatitis Past Surgical History: Reports: Hx Appendectomy, Hx Hysterectomy, Hx Neurologic Surgery - craniotomy AVM excision, Hx Orthopedic Surgery - b/l feet. Denies: Hx Mastectomy, Hx Open Heart Surgery, Hx Pacemaker - Immunizations Immunizations up to date: Yes Hx Diphtheria, Pertussis, Tetanus Vaccination: Yes History of Influenza Vaccine for 07/2017 - 12/2017 Season: Unknown Review of Systems - Review of Systems Constitutional: No symptoms reported EENT: No symptoms reported Cardiovascular: No symptoms reported Respiratory: No symptoms reported Gastrointestinal: See HPI, Nausea, Vomiting Genitourinary: No symptoms reported Female Genitourinary: No symptoms reported Musculoskeletal: No symptoms reported Skin: No symptoms reported Hematologic/Lymphatic: No symptoms reported Neurological/Psychological: See HPI, Headaches -: Yes All other systems reviewed and negative Physical Exam - Vital signs Vitals: Temp Pulse Resp BP Pulse Ox 98.7 F 98 18 112/71 99 11/05/18 20:39 11/05/18 20:39 11/05/18 20:39 11/05/18 20:39 11/05/18 20:39 Interpretation: Normal - Notes Notes: Well-appearing in no acute distress - General General appearance: Appears well, Alert - HEENT Head: Normocephalic, Atraumatic Eyes: Normal Pupils: PERRL - Respiratory Respiratory status: No respiratory distress Chest status: Nontender Breath sounds: Normal Chest palpation: Normal - Cardiovascular Rhythm: Regular Heart sounds: Normal auscultation Murmur: No - Abdominal Inspection: Normal Distension: No distension Bowel sounds: Normal Tenderness: Nontender Organomegaly: No organomegaly - Rectal Notes: Deferred - Genitourinary Notes: Deferred - Back Back: Normal, Nontender - Extremities General upper extremity: Normal inspection, Nontender, Normal color, Normal ROM, Normal temperature General lower extremity: Normal inspection, Nontender, Normal color, Normal ROM, Normal temperature, Normal weight bearing. No: Alma Delia's sign - Neurological Neuro grossly intact: Yes Cognition: Normal Orientation: AAOx4 [place] Coma Scale Eye Opening: Spontaneous [place] Coma Scale Verbal: Oriented [place] Coma Scale Motor: Obeys Commands [place] Coma Scale Total: 15 Speech: Normal Motor strength normal: LUE, RUE, LLE, RLE Sensory: Normal - Psychological Associated symptoms: Normal affect, Normal mood - Skin Skin Temperature: Warm Skin Moisture: Dry Skin Color: Normal Course - Re-evaluation Re-evalutation: 11/06/18 00:13 During our encounter, the patient was informed that she would not receive Dilaudid during this visit. Patient was offered an alternative therapy, including both IV fluids along with Phenergan and Tylenol, however she refused all of this. Patient was also offered IV antiseizure medications given her reported inability to keep down her oral medications but the patient again re fused this. Patient repeatedly asked "when are you going to be here again so I know when to come and see someone else." I informed the patient that she will be discharged and was free to sign in through triage to be evaluated again but there was no guarantee who she would see and what therapy she would be offered. Patient will be discharged home with return precautions and follow-up. - Vital Signs Vital signs: Temp Pulse Resp BP Pulse Ox 98.9 F 98 18 112/71 99 11/05/18 21:31 11/05/18 20:39 11/05/18 20:39 11/05/18 20:39 11/05/18 20:39 Discharge - Discharge Clinical Impression: Drug-seeking behavior Chronic headache Qualifiers: Headache type: tension-type Intractability: not intractable Qualified Code(s): G44.229 - Chronic tension-type headache, not intractable Condition: Good Disposition: HOME, SELF-CARE Instructions: Headache ([facility]) Additional Instructions: Please follow-up with your regular physician and your neurologist as scheduled. Return to the emergency department if you experience vision changes, confusion, difficulty walking, or have any other concerning symptom. Print Language: [place]ian
== END 2018-11-06 00:07 | disposition home or self-care (01) ==
LOC: ER 20:12
DX: G44.229 Chronic tension-type headache, not intractable (principal); Z76.5 Malingerer [conscious simulation]; R11.2 Nausea with vomiting, unspecified; Z79.899 Other long term (current) drug therapy; F17.200 Nicotine dependence, unspecified, uncomplicated
CPT/HCPCS: 99283

== ENCOUNTER 2018-11-06 12:22 | Emergency (ER) | payer OTHER ==
[2018-11-06 13:02] VITALS: BP 117/68
[2018-11-06] MEDS ORDERED: PROMETHAZINE HCL INJ 25 MG/1 ML VIAL IM ONE (14:23)
--- NOTE | 2018-11-06 14:24 | ER Document Report ---
ED Medical Screen (RME) - General TRAVEL OUTSIDE OF THE [place] IN LAST 30 DAYS: No - General Chief Complaint: Headache Stated Complaint: HEADACHE Time Seen by Provider: 11/06/18 14:05 Notes: 4-year-old female patient on chronic pain management for chronic headaches. She receives 30-day supplies of Dilaudid. She states this headache causes her to throw up and she cannot keep her seizure medicine, her Phenergan, or her Dilaudid down. She was seen twice yesterday by Dr. Castillo requesting IM Dilaudid injections, he would not provide narcotics so she left each time without treatment according to the notes. She has been getting IM and IV Dilaudid regularly through the emergency room over the past year until yesterday. I have greeted and performed a rapid initial assessment of this patient. A comprehensive ED assessment and evaluation of the patient, analysis of test results and completion of the medical decision making process will be conducted by additional ED providers. (IVAN SMALLWOOD) - Related Data Allergies/Adverse Reactions: buprenorphine [From Butrans] Allergy (Verified 11/06/18 12:26) Dyspnea butorphanol tartrate [From Stadol] Allergy (Verified 11/06/18 12:26) Seizures ketorolac tromethamine [From Toradol] Allergy (Verified 11/06/18 12:26) Seizures morphine [Morphine] Allergy (Verified 11/06/18 12:26) Swelling of Throat Penicillins Allergy (Verified 11/06/18 12:26) Generalized rash prochlorperazine edisylate [From Compazine] Allergy (Verified 11/06/18 12:26) prochlorperazine maleate [From Compazine] Allergy (Verified 11/06/18 12:26) aspirin [From Fiorinal-Codeine #3] Adverse Reaction (Verified 11/06/18 12:26) Delirium baclofen [Baclofen] Adverse Reaction (Verified 11/06/18 12:26) Hallucinations butalbital [From Fiorinal-Codeine #3] Adverse Reaction (Verified 11/06/18 12:26) Delirium caffeine [From Fiorinal-Codeine #3] Adverse Reaction (Verified 11/06/18 12:26) Delirium codeine phosphate [From Fiorinal-Codeine #3] Adverse Reaction (Verified 11/06/18 12:26) Delirium diphenhydramine HCl [From Benadryl] Adverse Reaction (Verified 11/06/18 12:26) gadobutrol [From Gadavist] Adverse Reaction (Verified 11/06/18 12:26) metoclopramide HCl [From Reglan] Adverse Reaction (Verified 11/06/18 12:26) tramadol [Tramadol] Adverse Reaction (Verified 11/06/18 12:26) Hallucinations Past Medical History - Social History Chew tobacco use (# tins/day): No Frequency of alcohol use: None Drug Abuse: None Family history: Reviewed & Not Pertinent - Past Medical History Cardiac Medical History: Denies: Hx Heart Attack, Hx Hypertension Pulmonary Medical History: Denies: Hx Asthma Neurological Medical History: Reports: Hx Migraine, Hx Seizures - DEVELOPED AF TER CRANI. Denies: Hx Cerebrovascular Accident Renal/ Medical History: Denies: Hx Peritoneal Dialysis GI Medical History: Reports: Hx Gastroesophageal Reflux Disease. Denies: Hx Hepatitis, Hx Hiatal Hernia, Hx Ulcer Infectious Medical History: Denies: Hx Hepatitis Past Surgical History: Reports: Hx Appendectomy, Hx Hysterectomy, Hx Neurologic Surgery - craniotomy AVM excision, Hx Orthopedic Surgery - b/l feet. Denies: Hx Mastectomy, Hx Open Heart Surgery, Hx Pacemaker - Immunizations Immunizations up to date: Yes Hx Diphtheria, Pertussis, Tetanus Vaccination: Yes History of Influenza Vaccine for 07/2017 - 12/2017 Season: Unknown - Vital signs Vitals: Temp Pulse Resp BP Pulse Ox 98.4 F 96 18 117/68 100 11/06/18 13:01 11/06/18 13:01 11/06/18 13:01 11/06/18 13:01 11/06/18 13:01 - Vital Signs Vital signs: Temp Pulse Resp BP Pulse Ox 98.4 F 96 18 117/68 100 11/06/18 13:01 11/06/18 13:01 11/06/18 13:01 11/06/18 13:01 11/06/18 13:01
--- NOTE | 2018-11-06 17:26 | ER Document Report ---
ED General - General Chief Complaint: Headache Stated Complaint: HEADACHE Time Seen by Provider: 11/06/18 14:05 Notes: Patient is a 58-year-old female who presents to the emergency department with a chief complaint of a migraine headache. She states that her migraine headache starts in her temporal region and radiates to the back of her neck. She does have Dilaudid and Phenergan at home, in which she is takes for chronic migraines. She states that she threw up and that is why she is still in pain. She states that she cannot take Phenergan [place] because she has hemorrhoids. She states that the only thing that works for her is IM Phenergan and Dilaudid. Her past medical history includes multiple sclerosis and chronic migraines. She is seen by a neurologist. She was seen here in the emergency department for the past now 3 days for the same condition. She has not seen her neurologist in the past 3 days in regards to this problem. TRAVEL OUTSIDE OF THE [place] IN LAST 30 DAYS: No - Related Data Allergies/Adverse Reactions: buprenorphine [From Butrans] Allergy (Verified 11/06/18 12:26) Dyspnea butorphanol tartrate [From Stadol] Allergy (Verified 11/06/18 12:26) Seizures ketorolac tromethamine [From Toradol] Allergy (Verified 11/06/18 12:26) Seizures morphine [Morphine] Allergy (Verified 11/06/18 12:26) Swelling of Throat Penicillins Allergy (Verified 11/06/18 12:26) Generalized rash prochlorperazine edisylate [From Compazine] Allergy (Verified 11/06/18 12:26) prochlorperazine maleate [From Compazine] Allergy (Verified 11/06/18 12:26) aspirin [From Fiorinal-Codeine #3] Adverse Reaction (Verified 11/06/18 12:26) Delirium baclofen [Baclofen] Adverse Reaction (Verified 11/06/18 12:26) Hallucinations butalbital [From Fiorinal-Codeine #3] Adverse Reaction (Verified 11/06/18 12:26) Delirium caffeine [From Fiorinal-Codeine #3] Adverse Reaction (Verified 11/06/18 12:26) Delirium codeine phosphate [From Fiorinal-Codeine #3] Adverse Reaction (Verified 11/06/18 12:26) Delirium diphenhydramine HCl [From Benadryl] Adverse Reaction (Verified 11/06/18 12:26) gadobutrol [From Gadavist] Adverse Reaction (Verified 11/06/18 12:26) metoclopramide HCl [From Reglan] Adverse Reaction (Verified 11/06/18 12:26) tramadol [Tramadol] Adverse Reaction (Verified 11/06/18 12:26) Hallucinations Past Medical History - Social History Smoking Status: Current Every Day Smoker Chew tobacco use (# tins/day): No Frequency of alcohol use: None Drug Abuse: None Family History: Reviewed & Not Pertinent Patient has suicidal ideation: No Patient has homicidal ideation: No - Past Medical History Cardiac Medical History: Denies: Hx Heart Attack, Hx Hypertension Pulmonary Medical History: Denies: Hx Asthma Neurological Medical History: Reports: Hx Migraine, Hx Seizures - DEVELOPED AFTER CRANI. Denies: Hx Cerebrovascular Accident Renal/ Medical History: Denies: Hx Peritoneal Dialysis GI Medical History: Reports: Hx Gastroesophageal Reflux Disease. Denies: Hx Hepatitis, Hx Hiatal Hernia, Hx Ulcer Infectious Medical History: Denies: Hx Hepatitis Past Surgical History: Reports: Hx Appendectomy, Hx Hysterectomy, Hx Neurologic Surgery - craniotomy AVM excision, Hx Orthopedic Surgery - b/l feet. Denies: Hx Mastectomy, Hx Open Heart Surgery, Hx Pacemaker - Immunizations Immunizations up to date: Yes Hx Diphtheria, Pertussis, Tetanus Vaccination: Yes Physical Exam - Vital signs Vitals: Temp Pulse Resp BP Pulse Ox 98.4 F 96 18 117/68 100 11/06/18 13:01 11/06/18 13:01 11/06/18 13:01 11/06/18 13:01 11/06/18 13:01 - Notes Notes: PHYSICAL EXAMINATION: GENERAL: Appears older than age, somewhat healthy, well-nourished, no acute distress. HEAD: Normocephalic, atraumatic. EYES: PERRL, conjunctiva normal, all extraocular movements intact, sclera nonicteric ENT: Moist mucous membranes. NECK: Supple, no noticeable swelling, redness, rash. Normal range of motion. LUNGS: Equal breath sounds bilaterally and clear to auscultation. No wheezes rales or rhonchi. CARDIOVASCULAR: S1-S2, regular rate, regular rhythm. Radial pulses 2+, normal. ABDOMEN: Normoactive bowel sounds. Soft, nontender, no guarding, no rebound tenderness, and no masses palpated. EXTREMITIES: Normal strength and range of motion, no pitting or edema. No cyanosis. NEUROLOGICAL: Moves all extremities upon command. Strength 5/5 in all extremities. PSYCH: Normal mood, normal affect. SKIN: Warm, dry. No rash, lesions, ulcerations noted. Normal skin turgor. Course - Re-evaluation Re-evalutation: 11/06/18 16:45 Based off the patient's chronic history of migraines, she needs to be managed outpatient for her medications. I have offered her Phenergan IM, but she is refusing the IM form because she states "it does not work unless they take both Phenergan and Dilaudid together." I have offered her rectal Phenergan, and she states that she has hemorrhoids, which does not help. 11/06/18 17:[address] Paul in regards to this patient. He agrees that the patient should receive IM Phenergan here in the emergency department and go home and take her Dilaudid. I have had a long extensive conversation with the patient and her about not receiving narcotics here in the emergency department. The patient was very unhappy and eloped. - Vital Signs Vital signs: Temp Pulse Resp BP Pulse Ox 98.4 F 96 18 117/68 100 11/06/18 13:01 11/06/18 13:01 11/06/18 13:01 11/06/18 13:01 11/06/18 13:01 Discharge - Discharge Clinical Impression: Migraine Qualifiers: Migraine type: unspecified Status migrainosus presence: without status migrainosus Intractability: not intractable Qualified Code(s): G43.909 - Migraine, unspecified, not intractable, without status migrainosus Condition: Stable Disposition: ELOPED
== END 2018-11-06 17:43 | disposition left against medical advice (07) ==
LOC: ER 12:22
DX: G43.909 Migraine, unspecified, not intractable, without status migrainosus (principal); Z79.891 Long term (current) use of opiate analgesic; R11.10 Vomiting, unspecified; G35 Multiple sclerosis; F17.200 Nicotine dependence, unspecified, uncomplicated; Z88.5 Allergy status to narcotic agent; Z88.8 Allergy status to other drugs, medicaments and biological substances; Z88.0 Allergy status to penicillin; Z53.29 Procedure and treatment not carried out because of patient's decision for other reasons
CPT/HCPCS: 99281

== ENCOUNTER 2019-11-04 07:16 | Emergency (ER) | payer OTHER ==
[2019-11-04] MEDS ORDERED: NORMAL SALINE 1000 ML 1,000 ML IV ONE (09:36)
[2019-11-04] MEDS ORDERED: ONDANSETRON HCL INJ/PF 4 MG/2 ML SDV IV ONE (09:36)
[2019-11-04] MEDS ORDERED: HYDROMORPHONE HCL INJ/PF 2 MG/ML AMPULE IM ONE (10:18)
[2019-11-04] MEDS ORDERED: PROMETHAZINE HCL INJ 25 MG/1 ML VIAL IM ONE (10:18)
--- NOTE | 2019-11-04 10:19 | ER Document Report ---
ED Headache - General Chief Complaint: Headache Stated Complaint: HEADACHE,NAUSEA,VOMITING Time Seen by Provider: 11/04/19 08:55 Notes: HPI: 59-year-old female with past medical history as recorded including frequent migraines, who used to be very frequent at this facility secondary to migraines, with a complicated history also of MS, who presents today stating a headache with vomiting. She states that this is my "typical migraine". She states it is to the left side and top of the head. She states 3 bouts of nonbloody nonbilious vomiting. No head trauma. No fevers. No neck pain. No weakness or numbness. No blurry vision. Patient states that she is treated at [facility] by Dr. Escobar and Roe Arizmendi, the clinical director of [facility]. She states that she is treated normally for Phenergan and Dilaudid. 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 ROS: See HPI All other review of systems reviewed and otherwise negative Reviewed vital signs and nursing note as charted by RN. PHYSICAL EXAM: CONSTITUTIONAL: Alert and oriented and responds appropriately to questions. Well-appearing; well-nourished HEAD: Normocephalic; atraumatic EYES: PERRL; full extraocular range of motion; no temporal erythema or tenderness CARD: Regular rate and rhythm; no murmurs; symmetric distal pulses RESP: Normal chest excursion without splinting or tachypnea; breath sounds clear and equal bilaterally ABD/GI: Normal bowel sounds; non-distended; soft, non-tender BACK: The back appears normal and is non-tender to palpation EXT: Normal ROM in all joints; non-tender to palpation; no edema SKIN: No acute lesions noted NEURO: CN 2-12 intact; 5/5 bilateral upper and lower extremity strength with sensation intact to light touch PSYCH: The patient's mood and manner are appropriate. Grooming and personal hygiene are appropriate. TRAVEL OUTSIDE OF THE [place] IN LAST 30 DAYS: No - Related Data Allergies/Adverse Reactions: buprenorphine [From Butrans] Allergy (Verified 11/04/19 07:42) Dyspnea butorphanol tartrate [From Stadol] Allergy (Verified 11/04/19 07:42) Seizures ketorolac tromethamine [From Toradol] Allergy (Verified 11/04/19 07:42) Seizures morphine [Morphine] Allergy (Verified 11/04/19 07:42) Swelling of Throat Penicillins Allergy (Verified 11/04/19 07:42) Generalized rash prochlorperazine edisylate [From Compazine] Allergy (Verified 11/04/19 07:42) prochlorperazine maleate [From Compazine] Allergy (Verified 11/04/19 07:42) aspirin [From Fiorinal-Codeine #3] Adverse Reaction (Verified 11/04/19 07:42) Delirium baclofen [Baclofen] Adverse Reaction (Verified 11/04/19 07:42) Hallucinations butalbital [From Fiorinal-Codeine #3] Adverse Reaction (Verified 11/04/19 07:42) Delirium caffeine [From Fiorinal-Codeine #3] Adverse Reaction (Verified 11/04/19 07:42) Delirium codeine phosphate [From Fiorinal-Codeine #3] Adverse Reaction (Verified 11/04/19 07:42) Delirium diphenhydramine HCl [From Benadryl] Adverse Reaction (Verified 11/04/19 07:42) gadobutrol [From Gadavist] Adverse Reaction (Verified 11/04/19 07:42) metoclopramide HCl [From Reglan] Adverse Reaction (Verified 11/04/19 07:42) tramadol [Tramadol] Adverse Reaction (Verified 11/04/19 07:42) Hallucinations Home Medications: Dilaudid. Phenergan Past Medical History - Social History Smoking Status: Unknown if Ever Smoked Chew tobacco use (# tins/day): No Drug Abuse: None Family History: Reviewed & Not Pertinent Patient has suicidal ideation: No Patient has homicidal ideation: No - Past Medical History Cardiac Medical History: Denies: Hx Heart Attack, Hx Hypertension Pulmonary Medical History: Denies: Hx Asthma Neurological Medical History: Reports: Hx Migraine, Hx Seizures - DEVELOPED AFTER CRANI. Denies: Hx Cerebrovascular Accident Renal/ Medical History: Denies: Hx Peritoneal Dialysis GI Medical History: Reports: Hx Gastroesophageal Reflux Disease. Denies: Hx Hepatitis, Hx Hiatal Hernia, Hx Ulcer Infectious Medical History: Denies: Hx Hepatitis Past Surgical History: Reports: Hx Appendectomy, Hx Hysterectomy, Hx Neurologic Surgery - craniotomy AVM excision, Hx Orthopedic Surgery - b/l feet. Denies: Hx Mastectomy, Hx Open Heart Surgery, Hx Pacemaker - Immunizations Immunizations up to date: Yes Hx Diphtheria, Pertussis, Tetanus Vaccination: Yes Physical Exam - Vital signs Vitals: Temp Pulse Resp BP Pulse Ox 97.8 F 82 16 117/94 H 100 11/04/19 07:20 11/04/19 07:20 11/04/19 07:20 11/04/19 07:20 11/04/19 07:20 Course - Re-evaluation Re-evalutation: 11/04/19 10:15 Given the above history and physical I did call the [facility] and spoke directly Roe Mcfadden. He states that she has a pain contract and is supposed to see no other locations other than the [facility]. He states that she was written and filled a prescription for 50 tablets of Dilaudid by the primary doctor, Dr. Caban. I have explained this to the patient. I currently have a very low pretest probability for bacterial meningitis, subarachnoid hemorrhage, temporal arteritis, or acute angle-closure glaucoma. I explained to the patient that I will provide a one-time dose of the requested medications. Mr Mcfadden is comfortable with this plan. I explained to her that we are happy to see her at any time that she would like for assessment and treatment, but we will not be able to provide Dilaudid given the pain contract that we are now aware of at the [facility]. She and her understand these instructions. - Vital Signs Vital signs: Temp Pulse Resp BP Pulse Ox 97.8 F 82 16 117/94 H 100 11/04/19 07:20 11/04/19 07:20 11/04/19 07:20 11/04/19 07:20 11/04/19 07:20 Discharge - Discharge Clinical Impression: Migraine headache Qualifiers: Migraine type: unspecified Status migrainosus presence: without status migrainosus Intractability: not intractable Qualified Code(s): G43.909 - Migraine, unspecified, not intractable, without status migrainosus Condition: Good Disposition: HOME, SELF-CARE Additional Instructions: Come back immediately with any fevers, blurry vision, weakness or numbness, persistent vomiting, or any other acute problems. Please make sure that you follow-up with your specialist at [facility] as we have discussed. Please make sure that when you have a migraine and request medications that may be narcotic in nature, that you understand that given the pain contract that we are not able to provide narcotic medications here at this facility.
[2019-11-04 11:11] VITALS: BP 119/70
== END 2019-11-04 11:10 | disposition home or self-care (01) ==
LOC: ER 07:16
DX: G43.909 Migraine, unspecified, not intractable, without status migrainosus (principal); R11.2 Nausea with vomiting, unspecified; Z88.8 Allergy status to other drugs, medicaments and biological substances
CPT/HCPCS: 99283; 96372; J1170; J2550